=== PATIENT | female | born 1950 | race Caucasian/White ===

== ENCOUNTER 2017-10-30 10:21 | Emergency (ER) | payer MEDICARE ==
[~2017-10-30] VITALS: Ht 167.6 cm; Wt 112.0 kg
[~2017-10-30 10:21] MED LIST: CRESTOR5 MG PO; METFORMIN1000 MG PO; OXYCONTIN40 MG PO; SYNTHROID50 MCG PO
[2017-10-30] MEDS ORDERED: PERCOCET 5/325M1 TAB PO ×2 (11:08→11:10)
[2017-10-30] MEDS ORDERED: NARCAN4 MG/0.1 M (11:08)
[2017-10-30] MEDS ORDERED: XANAX0.25 MG PO (11:10)
[2017-10-30 11:25] VITALS: BP 175/80
== END 2017-10-30 11:25 | disposition home or self-care (01) ==
LOC: ED 10:21
DX: G89.29 Other chronic pain (principal); M54.5 Low back pain; M54.6 Pain in thoracic spine; M54.2 Cervicalgia; I10 Essential (primary) hypertension; E11.9 Type 2 diabetes mellitus without complications; M79.7 Fibromyalgia; M48.00 Spinal stenosis, site unspecified

== ENCOUNTER 2018-06-11 17:05 | Emergency (ER) | payer MEDICARE ==
[~2018-06-11] VITALS: Ht 167.6 cm; Wt 100.0 kg
[~2018-06-11 17:05] MED LIST changes: +ALPRAZOLAM0.5 M2 PO; +BUT/APAP/CAF PO; +CARVEDILOL6.25 MG PO; +CRESTOR10 MG PO; +ESCITALOPRAM OX20 MG PO; +FUROSEMIDE40 MG PO; +GABAPENTIN300 M2 PO; +LASIX 40 MG TAB40 MG PO; +LEVOTHYROXIN50 MC1 PO; +METFORMIN500 MG PO; +NARCAN4 MG/0.1 M; +OXYCODONE HCL E PO; +OXYCODONE HCL E40 MG PO; +OXYCODONE PO; +PERCOCET 5/325M1 TAB PO; +TIZANIDINE HCL2 M1 PO; +WARFARIN7.5 MG PO; +XANAX0.25 MG PO; +XANAX0.5 MG PO; +ZOLPIDEM TARTRA10 MG PO; +ZOLPIDEM10 MG PO
[2018-06-11] MEDS ORDERED: HYDROCO/APAP1 TA9 PO (17:49)
[2018-06-11] MEDS ORDERED: HYDROCO/APAP1 T13 PO (17:52)
[2018-06-11 18:41] VITALS: BP 157/65
== END 2018-06-11 18:41 | disposition home or self-care (01) ==
LOC: ED 17:05
DX: G89.18 Other acute postprocedural pain (principal); M54.5 Low back pain; M19.90 Unspecified osteoarthritis, unspecified site; I10 Essential (primary) hypertension; E11.9 Type 2 diabetes mellitus without complications; M79.7 Fibromyalgia; F41.9 Anxiety disorder, unspecified; F32.9 Major depressive disorder, single episode, unspecified; E03.9 Hypothyroidism, unspecified; Z86.718 Personal history of other venous thrombosis and embolism; Z95.5 Presence of coronary angioplasty implant and graft

== ENCOUNTER 2018-06-14 22:53 | Observation (INO) | payer MEDICARE ==
[~2018-06-14] VITALS: Ht 167.6 cm; Wt 93.0 kg
[~2018-06-14 22:53] MED LIST changes: +HYDROCO/APAP1 T13 PO; +HYDROCO/APAP1 TA9 PO
--- NOTE | 2018-06-14 23:00 | NUR ---
PT HERE FOR FALLING OUT OF BED. PT IS UNKEPT AND STILL HAS [facility] ON FROM [facility].
[2018-06-14 23:51] LABS: IMMATURE GRANULOCYTES 0.7 % (0.0-5.0); MEAN CELL VOLUME 90.5 fL CALC (80.0-100.0); MEAN CORPUSCULAR HGB 28.1 pG CALC (26.0-32.0); NEUT# 6.71 thou/uL (2.00-7.15); RED BLOOD COUNT 4.74 mill/uL (4.20-5.60); RED CELL DISTRI WIDTH 14.9 % (11.5-15.5)
[2018-06-14 23:52] LABS: HEMATOCRIT 42.9 % (37.0-47.0); HEMOGLOBIN 13.3 g/dl (12.0-16.0)
[2018-06-15 00:01] LABS: BILIRUBIN, TOTAL 0.8 mg/dL (0.0-1.4); CREATININE 1.2 mg/dL (0.5-1.0); POTASSIUM 3.3 mmol/l (3.5-5.1)
[2018-06-15 00:03] LABS: TOTAL PROTEIN 7.5 g/dL (6.3-8.2)
--- NOTE | 2018-06-15 00:23 | NUR ---
PT BACK FROM XRAY, EKG DONE
--- NOTE | 2018-06-15 01:20 | NUR ---
PT MEDICATED FOR PAIN AND PT AWARE SHE IS GOING TO BE ADMITTED. PT ASKED FOR SLEEPING PILL. INFORMED PT SHE ALREADY TOOK HERS. SHE STATED "THAT WAS A WHILE AGO IT WONT DO ME ANY GOOD NOW."
--- NOTE | 2018-06-15 01:45 | NUR ---
CALLED FLOOR TO GIVE REPORT, NURSE WILL CALL BACK
--- NOTE | 2018-06-15 03:00 | NUR ---
Admission Note Report Given to: ERICA RAMIREZ Transported by: Wheelchair X Stretcher Transported with: X Nurse Transporter X Patent IV O2 Internal Medicine Physician Assistant PT TRANSPORTED TO FLOOR BY [facility] AND RESERVOIR KEEPER.
--- NOTE | 2018-06-15 03:10 | NUR ---
ARRIVES BY STRETCHER FROM ER WITH TRANSPORT FROM [facility]. PT. STATES SHE IS UNABLE TO AMBULATE FROM STRETCHER TO ICU BED. PT. WAS ASKED IF SHE AMBULATES AT HOME. PT. STATES SHE FELL. THIS RN TOLD PATIENT IT WAS REPORTED THAT SHE ROLLED OUT OF BED. PT. WAS ABLE TO SCOOT HERSELF OVER IN BED AFTER IT WAS FOUND THERE WERE NO SHEETS UNDERNEATH HER. C/O SEVERE PAIN ASKING FOR PAIN MEDICATION ON ARRIVAL. PT. FOUND WITH [facility] AND ADMISSION WRISTBAND FROM 05/31/18. CONTINUES TO MOAN BUT APPEARS IN LITTLE DISTRESS.
[2018-06-15 03:15] VITALS: BP 183/95
--- NOTE | 2018-06-15 03:15 | NUR ---
PT. ASKING FOR PAIN MEDICATION AND A SLEEPING PILL. STATES SHE DID TAKE HER SLEEPING PILL ALREADY LAST NIGHT BUT HASN'T BEEN ABLE TO SLEEP SINCE ROLLING OUT OF BED. NO NOTABLE SWELLING OR HEMATOMA NOTED TO RT. SIDE OF HEAD WHERE PT. STATES HE HIT HER HEAD.
--- NOTE | 2018-06-15 03:30 | NUR ---
PT. REMAINS AWAKE, ALERT, ORIENTED X 3. RESPS EVEN AND UNLABORED. VSS. PT. REQUESTING PAIN MEDICATION. PT. AGAIN EXPLAINED THAT WITH HER HEAD INJURY, MIND ALTERING MEDICATION SHOULD NOT BE GIVEN TO INTERFERE WITH NEURO STATUS CHECKS. PT. REQUESTING THE PHYSICIAN BE CALLED FOR PAIN MEDICATION. AGAIN EXPLAINED THE NEED FOR NEURO STATUS CHECKS SHE HAS AN ADMITTING DIAGNOSIS OF CLOSED HEAD INJURY.
[2018-06-15 04:00] VITALS: BP 135/71
--- NOTE | 2018-06-15 04:09 | NUR ---
PT. PROVIDED WITH TURKEY SANDWICH PER HER REQUEST. PT. STATES "DO YOU HAVE MY ASPIRIN"? THIS RN INFORMED THE PATIENT THAT I WAS WAITING FOR PHARMACY TO PROFILE THE MEDICATION. PT. THEN IN A DEROGATORY TONE ASKED "WELL DID YOU HAVE TO WAIT FOR THE PHARMACY TO PUT THE SANDWICH THROUGH TOO"? PT. WAS APPRISED THERE ARE OTHER PATIENTS THAT ALSO REQUIRE NURSING CARE IN THE ICU. PT. THEN ASKED "DID YOU PUT ANY MAYONAISE ON IT"? THIS RN INFORMED PT. THAT THERE WAS A MAYONAISE PACKET WITH THE SANDWICH AND SHE COULD APPLY LIBERALLY OR LIMITED SHE WOULD LIKE. PT. WAS TOLD THERE WAS ALSO MUSTARD IN THE PACKET IF SHE SHOULD SO CHOOSE. PT. REPLIED "MUSTARD IS ONLY FOR HOTDOGS".
--- NOTE | 2018-06-15 04:43 | NUR ---
PT. CONTINUES TO MOAN AND COMPLAIN ABOUT LOWER BACK PAIN. PT. STATES "IT FEELS LIKE YOU GUYS HAVE BEAT ME UP". THIS RN INFORMED THE PATIENT THAT NOTHING THAT WE HAVE DONE SHOULD HAVE DONE HERE WOULD HAVE EXACERBATED HER CHRONIC BACK PAIN MORE THAN ROLLING OUT OF BED AND HITTING THE FLOOR WOULD HAVE. REMAINS NEUROLOGICALLY INTACT.
--- NOTE | 2018-06-15 06:10 | NUR ---
PT. RESTING IN BED WITH EYES CLOSED AND SNORING RESPIRATIONS. VOICES NO COMPLAINTS OR NEEDS AT THIS TIME. WILL CONTINUE TO MONITOR.
--- NOTE | 2018-06-15 06:55 | NUR ---
REPORT RECVD FROM ERICA RAMIREZ AT START OF SHIFT
--- NOTE | 2018-06-15 07:53 | NUR ---
PT APPEARS TO BE SLEEPING. NO S/S OF DISTRESS AT THIS TIME. EYES CLOSED, RESTING PEACEFULLY. CALLBELL W/IN REACH. WILL HOLD BREAKFAST UNTIL PT WAKES UP.
[2018-06-15 08:00] VITALS: BP 118/45
--- NOTE | 2018-06-15 09:14 | NUR ---
ASHLEY, HOME HEALTH NURSE, CALLED FOR STATUS UPDATE. PROVIDED BACKGROUND INFO ON PT. SHE WILL CALL DR PRITCHARD TO INFORM HIM OF PTS ADMISSION TO [facility].
--- NOTE | 2018-06-15 09:47 | NUR ---
PT REMAINS SLEEPING; EYES CLOSED, RESTING PEACEFULLY. NO S/S OF DISTRESS. CALLBELL W/IN REACH. WILL CONTINUE TO MONITOR.
--- NOTE | 2018-06-15 10:09 | NUR ---
LAB @BEDSIDE FOR DRAW.
--- NOTE | 2018-06-15 10:12 | NUR ---
RT @BEDSIDE FOR EKG
[2018-06-15 10:19] LABS: HEMATOCRIT 40.1 % (37.0-47.0); HEMOGLOBIN 12.6 g/dl (12.0-16.0); IMMATURE GRANULOCYTES 0.5 % (0.0-5.0); MEAN CELL VOLUME 89.3 fL CALC (80.0-100.0); MEAN CORPUSCULAR HGB 28.1 pG CALC (26.0-32.0); MEAN CORPUSCULAR HGB CONC 31.4 g/L CALC (32.0-36.0); NEUT# 5.4 thou/uL (2.00-7.15); RED BLOOD COUNT 4.49 mill/uL (4.20-5.60)
--- NOTE | 2018-06-15 10:32 | NUR ---
CALLED TO ROOM. PT REQUEST TO SPEAK WITH PAIN MANANGMENT. PT INFORMED WE DONT HAVE PAIN MANAGMENT FOR ADMITTED PTS BUT ADMITTING DR ON UNIT, WILL SEE HER SOON.
[2018-06-15 10:41] LABS: CREATININE 1.2 mg/dL (0.5-1.0)
--- NOTE | 2018-06-15 11:00 | NUR ---
PT ON CALLBELL ASKING FOR PAIN MEDICINE.
--- NOTE | 2018-06-15 11:08 | NUR ---
PT ON CALLBELL ASKING FOR PAIN MEDICATION AGAIN. ASKED PT FOR PATIENCE SINCE THERE ARE ALOT OF PTS IN ICU AND ONLY 2 STAFF. WHEN ASKED FOR A URINE SAMPLE, PT STATES SHE CANT PEE STANDING UP. WHEN I TOLD HER SHE COULD SIT DOWN TO URINATE FOR A SAMPLE, PT STARTED WIMPERING BC "IT HURTS".
--- NOTE | 2018-06-15 11:20 | NUR ---
PT MEDICATED FOR PAIN IN HER BUTT FROM "LAYING ON IT TOO MUCH". PT STATES SHE CAN'T ROLL OR TURN HERSELF BC SHE'S IN TOO MUCH PAIN BUT WAS REACHING OVER TO OTHER SIDE OF BED FOR CALLBELL.
--- NOTE | 2018-06-15 11:40 | NUR ---
DR HAMILTON @BEDSIDE, ASSESSING PT. PT ABLE TO ROLL TO SIDE TO SHOW MD HER BACK & BUTTOCKS. NO REDNESS OR ANY ABNORMALITY TO BUTTOCKS. HEALING WOUND WITH MARY BETH TO MIDLINE, LOWER BACK. PT HAS F/UP APPT WITH DR PRITCHARD FOR STAPLE REMOVAL ON 06/17. PT ASKING FOR MORE PAIN MEDICINE.
--- NOTE | 2018-06-15 11:53 | NUR ---
UPDATED HOME HEALTH ON PTS STATUS. CALLED DR PRITCHARD'S OFFICE, HE STEPPED OUT BUT WILL CALL DR HAMILTON BACK IN ABOUT 20 MINS.
--- NOTE | 2018-06-15 11:57 | NUR ---
PT YELLING FROM ROOM "I NEED PAIN MEDICINE", "HELP, VICKIE DROPPED MY CALL BUTTON", "ID LIKE TO TALK TO THE DOCTOR AGAIN".
[2018-06-15 12:00] VITALS: BP 139/66
--- NOTE | 2018-06-15 12:03 | NUR ---
DR HAMILTON, ASKING CASE MANAGEMENT TO INITIAL TRANSFER PT TO [facility].
--- NOTE | 2018-06-15 12:22 | NUR ---
PT SITTING UP IN BED, EATING LUNCH. PTS SPEECH SEEMS SLURRED, DR HAMILTON AWARE. PT ABLE TO READJUST HERSELF IN BED.
--- NOTE | 2018-06-15 12:46 | NUR ---
PT CONTINUES TO FREQUENTLY YELL OUT TO STAFF & USE CALLBELL.
--- NOTE | 2018-06-15 13:24 | NUR ---
WALKED INTO ROOM TO MEDICATE PT, FOUND PT SLEEPING.
--- NOTE | 2018-06-15 13:32 | NUR ---
PT FREQUENTLY ON CALLBELL DURING ANOTHER PTS CODE. WAS EXPLAINED TO PT MULTIPLE TIMES THAT WE HAVE A CRITICAL PT ON THE FLOOR. PTS REPONSE WAS "I DONT UNDERSTAND THAT, JUST GIVE ME MY DAMN MEDICINE!".
--- NOTE | 2018-06-15 13:48 | NUR ---
PT APPEARS SLEEPY/GROUGY, SPEECH SLURRED/GARBLED. PT ABLE TO KAY & OVERCOME GRAVITY. OSTOMY CARE NURSE MODERATE BILATERALLY. EYES PERRLA @3. PT A&Ox3. NO FACIAL DROOP. VSS. HR 76, BP 127/68, 96% O2, RR 16
[2018-06-15 14:00] VITALS: BP 127/68
--- NOTE | 2018-06-15 14:10 | NUR ---
PT REFUSED IV POTASSIUM. STATES "IT NOEL TOO BAD". K+ STOPPED.
--- NOTE | 2018-06-15 14:28 | NUR ---
PT CONTINUES TO BE ON CALLBELL & YELL OUT FOR STAFF EVERY 5 MINS. PT AWARE OF TRANSFER.
--- NOTE | 2018-06-15 14:45 | NUR ---
ASHLEY, HOME HEALTH, NOTIFIED OF PTS TRANSFER TO [facility].
--- NOTE | 2018-06-15 14:54 | NUR ---
PT CONTINUES TO BE ON CALLBELL & CALLING OUT TO STAFF. PT C/O PAIN TO IV SITE AREA. REFUSES TO PLACE ICE PACK ON AREA. NO SWELLING, NO REDNESS, NO HEAT. PT DOES NOT WANT IV PULLED SO SHE CAN STILL GET PAIN MEDICATIONS. REFUSES NEW IV START. REQUEST THE DOCTOR COME TO THE ROOM SO HE CAN SEE HOW MUCH PAIN SHE IS IN.
--- NOTE | 2018-06-15 14:58 | NUR ---
TRANSPORTATION TO NEW FACILITY ETA 30MINS.
--- NOTE | 2018-06-15 15:00 | NUR ---
LILLIE, CASE MANAGMENT, @BEDSIDE TO DISCUSS TRANSFER.
--- NOTE | 2018-06-15 15:51 | NUR ---
PT OUT THE DOOR WITH [facility] IN STABLE CONDITION.
--- NOTE | 2018-06-15 15:53 | NUR ---
PT STATES SHE WAS UNABLE TO GIVE A URINE SAMPLE DURING ADMISSION.
--- NOTE | 2018-06-15 16:07 | NUR ---
REPORT CALLED TO MARISOL, CHARGE NURSE, AT [phone].
== END 2018-06-15 15:51 ==
LOC: ED 22:53 → ED-I 06-15 01:10 → ED 06-15 01:17 → ICU 06-15 01:18
PROVIDERS: Emergency Medicine; Internal Medicine Nephrology; ADMIT Internal Medicine; ATTEND Internal Medicine
DX: M54.5 Low back pain (principal); R93.7 Abnormal findings on diagnostic imaging of other parts of musculoskeletal system; M48.061 Spinal stenosis, lumbar region without neurogenic claudication; S00.03XA Contusion of scalp, initial encounter; I10 Essential (primary) hypertension; I25.10 Atherosclerotic heart disease of native coronary artery without angina pectoris; E11.9 Type 2 diabetes mellitus without complications; M79.7 Fibromyalgia; W06.XXXA Fall from bed, initial encounter; Y92.003 Bedroom of unspecified non-institutional (private) residence as the place of occurrence of the external cause; Z95.5 Presence of coronary angioplasty implant and graft; Z98.890 Other specified postprocedural states

== ENCOUNTER 2018-09-12 20:43 | Observation (INO) | payer MEDICARE ==
[~2018-09-12] VITALS: Ht 167.6 cm; Wt 91.3 kg
--- NOTE | 2018-09-12 21:42 | NUR ---
BLOOD DRAWN VIA EMS SITE.
[2018-09-12 21:54] LABS: HEMATOCRIT 41.7 % (37.0-47.0); HEMOGLOBIN 12.9 g/dl (12.0-16.0); IMMATURE GRANULOCYTES 0.3 % (0.0-5.0); MEAN CELL VOLUME 87.6 fL CALC (80.0-100.0); MEAN CORPUSCULAR HGB 27.1 pG CALC (26.0-32.0); MEAN CORPUSCULAR HGB CONC 30.9 g/L CALC (32.0-36.0); NEUT# 3.55 thou/uL (2.00-7.15); RED BLOOD COUNT 4.76 mill/uL (4.20-5.60)
[2018-09-12 22:29] LABS: ACT PARTIAL THROMBO TIME 60.5 SECONDS (20.0-32.5); INTERNATIONAL NORMALIZED RATIO 8.1 RATIO (0.7-1.3); PROTHROMBIN TIME 82.8 SECONDS (9.0-12.5)
--- NOTE | 2018-09-12 22:30 | NUR ---
PT 82.8/INR 8.1. NOTIFIED
[2018-09-12 22:36] LABS: ALBUMIN 3.7 g/dL (3.2-5.0); ALKALINE PHOSPHATASE 101 u/l (38-126); ANION GAP 10 (6-22 (CALC)); BILIRUBIN, TOTAL 0.6 mg/dL (0.0-1.4); BUN 18 mg/dL (8-23); BUN/CREATININE RATIO 20 (12-20 (CALC)); CARBON DIOXIDE 28 mmol/l (22-30); CHLORIDE 105 mmol/l (95-108); CREATININE 0.9 mg/dL (0.5-1.0); ETHYL ALCOHOL 0 mg/dl (0-30); GFR > 60 ML/MIN (>=60 (CALC)); GFR FOR AFR.AMER. > 60 ML/MIN (>=60 (CALC)); POTASSIUM 3.8 mmol/l (3.5-5.1); SGOT/AST 18 u/l (9-36); SODIUM 139 mmol/l (137-146); TOTAL PROTEIN 6.8 g/dL (6.3-8.2)
--- NOTE | 2018-09-12 23:11 | NUR ---
PT VOIDED WITH MINI CATH TO OBTAIN URINE SAMPLE
--- NOTE | 2018-09-12 23:11 | NUR ---
PT VERY GROGGY AND UNABLE TO VOID. FALLS ASLEEP MID SENTENCE.
[2018-09-12 23:41] LABS: URINE BILIRUBIN - DIPSTICK NEGATIVE (NEGATIVE); URINE BLOOD DIPSTICK NEGATIVE (NEGATIVE); URINE COLOR YELLOW; URINE GLUCOSE - DIPSTICK NEGATIVE (NEGATIVE); URINE KETONE TRACE mg/dL (NEGATIVE); URINE LEUK ESTERASE NEGATIVE (NEGATIVE); URINE NITRITE - DIPSTICK NEGATIVE (Negative); URINE PROTEIN - DIPSTICK NEGATIVE (NEG-TRACE); URINE UROBILINOGEN - DIPSTICK 0.2 E.U./dL (0.2)
[2018-09-12 23:46] LABS: COCAINE NEGATIVE (NEGATIVE); METHADONE NEGATIVE (NEGATIVE); TETRAHYDROCANNABIONOL NEGATIVE (NEGATIVE)
[2018-09-12 23:47] LABS: BARBITURATES NEGATIVE (NEGATIVE); OXCYCODONE POSITIVE (NEGATIVE); TRICYLIC ANTIDEPRESSANTS NEGATIVE (NEGATIVE)
[2018-09-13] VITALS (17 sets, daily range): BP systolic 110–184; BP diastolic 45–79
--- NOTE | 2018-09-13 01:03 | NUR ---
REPORT CALLED TO VINCE/NURSE ICU
--- NOTE | 2018-09-13 01:10 | NUR ---
TO FLOOR VIA STRETCHER. PT'S WALKER AND 2 PT BAGS. NIGHT GOWN/WALLET/PHONE/AND BAG OF MED.
--- NOTE | 2018-09-13 01:20 | NUR ---
PT ARRIVED WITH EMS IV SITE.
--- NOTE | 2018-09-13 01:20 | NUR ---
PT ARRIVED TO THE UNIT VIA STRETCHER ACCOMAPNIED BY STAFF, AND HER BELONGINGS. IV SITE IS FREE FROM REDNESS OR EDEMA.
--- NOTE | 2018-09-13 01:40 | NUR ---
ASSESSMENT WAS COMPLETED: IV SITE CHANGED BY RN ON THE UNIT WITH 1 ATTEMPT. #22 IN RFA. PT TOLERATED WELL. BREATH SOUNDS ARE CLEAR, BILATERALLY, NO C/O SOB, ONLY C/O PAIN IN HER LOWER BACK. HR IS REG,PULSES ARE STRONG X4. ABD IS SOFT WITH ACTIVE BS. PT HAS SOME DISCOLORATION ON HER NECK . SCARRING NOTED ON HER LOWER BACK. SMALL BLISTER ON HER COCCYX. EMS SITE WAS DISCONTINUED. ALL QUESTIONS ANSWERED APPROPIATELY BY PT.CONTINUE TO OSBERVE AND MONITOR.
--- NOTE | 2018-09-13 02:01 | NUR ---
CALLED ER DR. RICHARDS REQUESTING SOMETHING FOR PAIN. EXPLAINED BP AT THIS TIME. NEW MEDS WERE ORDERED. CALLED CARDINAL RE: IV FLUID ORDER . ORDER WAS FIXED IN THE PYXIS TO BE ABLE TO OBTAIN.
--- NOTE | 2018-09-13 03:59 | NUR ---
RN COSIGN ADMISSION ASSESSMENT PART A & B COMPLETED.
--- NOTE | 2018-09-13 04:50 | NUR ---
LAB CAME TO DRAW AM LABS
[2018-09-13 05:00] LABS: HEMOGLOBIN 12.3 g/dl (12.0-16.0); IMMATURE GRANULOCYTES 0.3 % (0.0-5.0); MEAN CELL VOLUME 88.3 fL CALC (80.0-100.0); MEAN CORPUSCULAR HGB 27.2 pG CALC (26.0-32.0); MEAN CORPUSCULAR HGB CONC 30.8 g/L CALC (32.0-36.0); NEUT# 3.37 thou/uL (2.00-7.15); RED BLOOD COUNT 4.53 mill/uL (4.20-5.60)
[2018-09-13 05:07] LABS: ANION GAP 11 (6-22 (CALC)); BUN 18 mg/dL (8-23); BUN/CREATININE RATIO 24 (12-20 (CALC)); CARBON DIOXIDE 24 mmol/l (22-30); CHLORIDE 109 mmol/l (95-108); CREATININE 0.8 mg/dL (0.5-1.0); GFR > 60 ML/MIN (>=60 (CALC)); GFR FOR AFR.AMER. > 60 ML/MIN (>=60 (CALC)); POTASSIUM 3.8 mmol/l (3.5-5.1); SODIUM 140 mmol/l (137-146)
[2018-09-13 05:31] LABS: PROTHROMBIN TIME 92.3 SECONDS (9.0-12.5)
--- NOTE | 2018-09-13 05:35 | NUR ---
PLACED A CALL TO DUE TO HIGH INR OF 9.0. NEW ORDERS OBTAINED.
[2018-09-13] MEDS ORDERED: ALPRAZOLAM0.5 MG PO (05:40)
[2018-09-13] MEDS ORDERED: ZOLPIDEM10 MG PO (05:41)
[2018-09-13] MEDS ORDERED: OXYCONTIN40 MG PO (05:42)
[2018-09-13] MEDS ORDERED: WARFARIN7.5 MG PO (05:43)
[2018-09-13] MEDS ORDERED: ESCITALOPRAM OX10 MG PO (05:43)
[2018-09-13] MEDS ORDERED: LEVOTHYROXIN50 MCG PO (05:45)
[2018-09-13] MEDS ORDERED: FUROSEMIDE40 MG PO (05:45)
[2018-09-13] MEDS ORDERED: GABAPENTIN100 MG PO (05:46)
[2018-09-13] MEDS ORDERED: CARVEDILOL6.25 MG PO (05:47)
[2018-09-13] MEDS ORDERED: FIORICET PO (05:48)
[2018-09-13] MEDS ORDERED: TIZANIDINE4 MG PO (05:49)
[2018-09-13] MEDS ORDERED: ROSUVASTATIN CA10 MG PO (05:50)
[2018-09-13] MEDS ORDERED: METFORMIN500 MG PO (05:51)
--- NOTE | 2018-09-13 07:00 | NUR ---
REPORT RECEIVED FROM SHAINA CLARKE;PT APPEARS TO BE SLEEPING IN SUPINE POSITION;RESPIRATIONS EVEN AND UNLABORED ON RA;NO S/S OF DISTRESS NOTED;IV FLUIDS INFUSING TO RIGHT FOREARM WITH EASE;ALL SAFETY PRECAUTIONS IN PLACE WITH BED IN THE LOWEST POSITION AND CALL LIGHT IN REACH;WILL CONTINUE TO MONITOR
--- NOTE | 2018-09-13 07:30 | NUR ---
PT RESTING IN SUPINE POSITION,AWAKES EASILY TO VERBAL STIMULI;ALERT AND ORIENTED X3,DROWSY;VS OBTAINED AND ASSESSMENT COMPLETED;INTRODUCED SELF TO PT AND POC DISCUSSED;PT REPORTS HEADACHE PAIN RATING 2/10 ON THE PAIN SCALE, PT EDUCATED ON LAST ADMINISTRATION OF PAIN MEDICATION AND VERBALIZES UNDERSTANDING;RESPIRATIONS SHALLOW ON RA,CLEAR LUNG SOUNDS;ABDOMEN SOFT ON PALPATION AND ACTIVE IN ALL 4 QUADRANTS;STRONG PEDAL PULSES;GENERALIZED BRUISING NOTED THROUGHOUT,SKIN OTHERWISE INTACT;#22G TO RIGHT FOREARM INFUSING NS @ 125ML/HR,SITE APPEARS HEALTHY;ACCUCHECK 86;CARDIAC MONITORING IN PLACE;PT DENIES ANY ADDITIONAL NEEDS AT THIS TIME AND IS ENCOURAGED TO CALL FOR ASSISTANCE IF NEEDED;FALL PRECAUTIONS IN PLACE WITH BED IN THE LOWEST POSITION AND CALL LIGHT IN REACH;WILL CONTINUE TO MONITOR
--- NOTE | 2018-09-13 07:48 | NUR ---
PT CURRENT BP 176/76 HR 73; NOTIFIED AT THIS TIME OF ELEVATED BP;NO NEW ORDERS RECEIVED AT THIS TIME;WILL CONTINUE TO MONITOR
--- NOTE | 2018-09-13 08:20 | NUR ---
CONSENT OBTAINED FOR BLOOD PRODUCTS. PT TO RECEIVED 2 UNITS OF FRESH FROZEN PLASMA;PT EDUCATED ON ALL SIGNS AND SYMPTOMS OF A TRANSFUSION REACTIONS AND VERBALIZES UNDERSTANDING;WILL CONTINUE TO MONITOR
--- NOTE | 2018-09-13 09:35 | NUR ---
ITEMS SENT TO SAFE IN BUSSINESS OFFICE AT THIS TIME.$191.00, CREDIT CARDS AND WALLET ALL COUNTED AND SIGNED WITH PATIENT.
--- NOTE | 2018-09-13 09:54 | NUR ---
FFP verified at bedside as per protocol; pt has been explained s/sx of acute reaction and to notify staff immed of such; account underwriter remains at bedside to monitor pt
--- NOTE | 2018-09-13 09:55 | NUR ---
PT RESTING IN BED;FIRST UNIT OF FFP STARTED AT THIS TIME WITH VERIFICATION FROM MIRANDARN;ALL S/S OF A TRANSFUSION REACTION EDUCATED AND PT VERBALIZES UNDERSTANDING,ALL QUESTIONS ANSWERED;WRITTER TO REMAIN AT BEDSIDE FOR INITIAL 15 MINS PER [facility] PROTOCAL;WILL CONTINUE TO MONITOR
--- NOTE | 2018-09-13 10:28 | NUR ---
AT BEDSIDE DISCUSSING POC WITH PATIENT.NO NEW ORDERS AT THIS TIME.
--- NOTE | 2018-09-13 11:05 | NUR ---
PT RESTING IN SEMI FOWLERS POSITION,DROWSY;RESPIRATIONS EVEN AND UNLABORED ON RA;1ST UNIT OF FFP CONTINUES TO INFUSE WITH EASE TO RFA;ACCUCHECK OBTAINED RESULTING IN 128,NO COVERAGE NEEDED AT THIS;PT REMAINS SR ON CARDIAC MONITORING;VS OBTAINED;ALL SAFETY PRECAUTIONS REINFORCED WITH CALL LIGHT IN REACH;WILL CONTINUE TO MONITOR
--- NOTE | 2018-09-13 11:52 | NUR ---
PT RESTING IN BED EATING LUNCH;FIRST UNIT OF FFP COMPLETED AT THIS TIME;VS OBTAINED AND WNL;PT DENIES ANY CURRENT NEEDS;RESPIRATIONS EVEN AND UNLABORED ON RA;PT RE-EDUCATED ON 2ND UNIT OF FFP ORDERED AND VERBALIZES UNDERSTANDING;WILL CONTINUE TO MONITOR
--- NOTE | 2018-09-13 12:10 | NUR ---
2ND UNIT OF FFP STARTED AT THIS TIME WITH VERIFICATION FROM MIRANDARN;ALL S/S OF A TRANSFUSION REACTION DISCUSSED AND PT VERBALIZES UNDERSTANDING;PT DENIES ANY ADDITIONAL NEEDS AND IS ENCOURAGED TO EXPRESS NEEDS AND CONCERNS;WRITTER TO REMAIN AT BEDSIDE FOR INITIAL 15 MINS PER [facility] PROTOCAL;WILL CONTINUE TO MONITOR
--- NOTE | 2018-09-13 14:19 | NUR ---
2ND UNIT OF FFP COMPLETED PER ORDER;VS OBTAINED AND REMAIN STABLE;RESPIRATIONS EVEN AND UNLABORED ON RA;PT REMAINS SR ON CARDIAC MONITORING;IV SITE TO RFA REMAINS PATENT;FRESH WATER PROVIDED;PT DENIES ANY ADDITIONAL NEEDS AND IS ENCOURAGED TO CALL FOR ASSISTANCE IF NEEDED;CALL LIGHT IN REACH;WILL CONTINUE TO MONITOR
--- NOTE | 2018-09-13 16:50 | NUR ---
PT APPEARS TO BE SLEEPING IN SEMI FOWLERS POSITION;RESPIRATIONS EVEN AND UNLABORED ON RA;IV FLUIDS CONTINUE TO INFUSE TO RFA @ 125ML/HR,SITE APPEARS HEALTHY;NO S/S OF DISTRESS NOTED;WILL CONTINUE TO MONITOR
--- NOTE | 2018-09-13 18:23 | NUR ---
PT HAD MODERATE LOOSE/BROWN BM;BALDEMAR CARE PROVIDED AND NEW GOWN APPLIED;PT RE-POSITIONED INTO BED;WILL CONTINUE TO MONITOR
--- NOTE | 2018-09-13 19:00 | NUR ---
BEDSIDE REPORT RECEIVED FROM SHAINA RAMOS. PT RESTING IN BED HIGH FOWLERS; ALERT AND OREINTED X 3. DENIES PAIN. RESPIRATIONS EVEN AND UNLABORED ON ROOM AIR. PLAN OF CARE REVIEWED. PT ENCOURAGED TO VERBALIZE CONCERNS. STATES UNDERSTANDING AND REQUESTS A SANDWHICH. SAFETY MEASURES IN PLACE. CALL LIGHT WITHIN REACH.
--- NOTE | 2018-09-13 19:15 | NUR ---
ASSESSMENT COMPLETE. LUNGS CLEAR. SANDWHICH PROVIDED. VS STABLE.
--- NOTE | 2018-09-13 21:22 | NUR ---
HS MEDICATIONS ADMINISTERED INCLUDING XANAX AND ROXICODONE; PT C/O 8/10 PAIN TO BUTT; RESPOSITONED AND PT ENCOURAGED TO REPOSITION SELF TO HELP WITH COMFORT. DECLINES NEED TO USE THE BATHROOM AT THIS TIME. CALL LIGHT SYSTEM REVIEWED AND WITHIN REACH.
--- NOTE | 2018-09-14 00:08 | NUR ---
PT ASLEEP WITH NO SIGNS OF DISTRESS. RESPIRATIONS EVEN AND UNLABORED ON ROOM AIR. IV FLUIDS INFUSING WITHOUT DIFFICULTY; IV SITE APPEARS HEALTHY. PT ONE PERSON ASSIST TO BSC. SAFETY MEASURES IN PLACE. CALL LIGHT WITHIN REACH.
[2018-09-14 04:00] VITALS: BP 152/74
--- NOTE | 2018-09-14 04:18 | NUR ---
PT INCONTINENT OF MODERATE LOOSE BOWEL MOVEMENT; NO VOID THROUGHOUT THE NIGHT. ENCOURAGEMENT NEEDED FOR PT TO GO TO BSC; ASSISTED BATH GIVEN, LINENS CHANGED, AND TEETH BRUSHED. PT VOIDED ONLY 100ML IN BSC WITH SMALL AMOUNT OF LIQUID STOOL. PVR 367ML WITH BLADDER SCANNER. PT REPORTS THAT SHE DOES NOT FEEL LIKE SHE NEEDS TO PEE. FLUIDS CONTINUE TO 125ML. C/O BUTT PAIN AND REQUESTING PAIN MEDICATION; ENCOURAGED TO REPOSITION TO SIDE AND PT STATES, "THAT DOESN'T HELP IT JUST STARTS TO HURT ON MY SIDE." WILL MEDICATION PER SCHEDULE.
--- NOTE | 2018-09-14 04:51 | NUR ---
MEDICATION SCHEDULE EXPLAINED TO PT; SHE REQUESTED A XANAX; PROVIDED.
--- NOTE | 2018-09-14 06:15 | NUR ---
PT REQUESTING SNACK; ACCU CHECK 105 AND CRACKERS GIVEN.
--- NOTE | 2018-09-14 07:00 | NUR ---
Received pt in mid-fowlers. Eyes closed. Resp easy. SR on tele. No signs of distress. Call light within reach.
--- NOTE | 2018-09-14 07:30 | NUR ---
Dr Craig called this senior technical writer; requesting INR results; lab noted to be ordered for 0900; lab notified to obtain specimen
[2018-09-14 08:00] VITALS: BP 149/80
[2018-09-14 08:16] LABS: INTERNATIONAL NORMALIZED RATIO 1.2 RATIO (0.7-1.3); PROTHROMBIN TIME 12.3 SECONDS (9.0-12.5)
[2018-09-14 08:35] VITALS: BP 149/80
--- NOTE | 2018-09-14 08:43 | NUR ---
Pt tolerated 100% of breakfast. Pt requesting pain medication, explained to patient is a bit to early at this time. Pt voices understanding. Scheduled am meds given including gabapentin. Pt worried about missing her appt with her pain Dr today and not being able to get her scripts for pain meds. Discussed plan of care. Denies any further needs at this time.
--- NOTE | 2018-09-14 08:55 | NUR ---
Pt attempting to get out of chair to bed without assist, incontinent of stool Pt instructed to call for assist. PT voices understanding.
--- NOTE | 2018-09-14 09:15 | NUR ---
Pt assisted back to bed, voided 100ml dark cloudy urine.
--- NOTE | 2018-09-14 09:22 | NUR ---
Pt medicated with PRN pain medicated as ordered. Pt awaken from sleep to medicate. Denies any further needs.
--- NOTE | 2018-09-14 10:59 | NUR ---
Dr Craig in unit, informed of repeat INR results.
--- NOTE | 2018-09-14 11:15 | NUR ---
Dr Craig in to see pt. Discharge orders discussed with patient.
[2018-09-14] MEDS ORDERED: COUMADIN5 MG PO (11:26)
--- NOTE | 2018-09-14 11:56 | NUR ---
D/C INSTRUCTIONS DISCUSSED W/ PT. PT STATES UNDERSTANDING. IV REMOVED CATHETER INTACT. PT AWAITING RIDE AND CLOTHES.
--- NOTE | 2018-09-14 12:14 | NUR ---
Discharge instructions given. Patient verbalizes understanding of same. Discharged in stable condition via Wheelchair to Home with father. All belongings sent with pt.
[2018-09-14] MEDS ORDERED: OXYCONTIN40 MG PO (14:12)
== END 2018-09-14 12:14 ==
LOC: ED 20:43 → ED-I 23:47 → ED 09-13 00:02 → ICU 09-13 00:03
PROVIDERS: Emergency Medicine; ADMIT Internal Medicine Nephrology; ATTEND Internal Medicine Nephrology
PROC: 30233K1 Transfusion of Nonautologous Frozen Plasma into Peripheral Vein, Percutaneous Approach (ICD-10-PCS; principal; 2018-09-13)
PROC: 30233K1 Transfusion of Nonautologous Frozen Plasma into Peripheral Vein, Percutaneous Approach (ICD-10-PCS; 2018-09-13)
DX: R79.1 Abnormal coagulation profile (principal); T45.515A Adverse effect of anticoagulants, initial encounter; S00.03XA Contusion of scalp, initial encounter; I10 Essential (primary) hypertension; E11.9 Type 2 diabetes mellitus without complications; I25.10 Atherosclerotic heart disease of native coronary artery without angina pectoris; E66.01 Morbid (severe) obesity due to excess calories; M19.90 Unspecified osteoarthritis, unspecified site; M48.00 Spinal stenosis, site unspecified; M79.7 Fibromyalgia; E03.9 Hypothyroidism, unspecified; W01.198A Fall on same level from slipping, tripping and stumbling with subsequent striking against other object, initial encounter; Y92.009 Unspecified place in unspecified non-institutional (private) residence as the place of occurrence of the external cause; Z79.4 Long term (current) use of insulin; Z79.01 Long term (current) use of anticoagulants; Z68.32 Body mass index [BMI] 32.0-32.9, adult; Z95.828 Presence of other vascular implants and grafts; Z86.718 Personal history of other venous thrombosis and embolism; Z95.1 Presence of aortocoronary bypass graft; F41.9 Anxiety disorder, unspecified

== ENCOUNTER 2018-09-30 01:00 | Inpatient (IN) | payer MEDICARE ==
[~2018-09-30] VITALS: Ht 167.6 cm; Wt 100.0 kg
[~2018-09-30 01:00] MED LIST changes: +ALPRAZOLAM0.5 MG PO; +COUMADIN5 MG PO; +ESCITALOPRAM OX10 MG PO; +FIORICET PO; +GABAPENTIN100 MG PO; +LEVOTHYROXIN50 MCG PO; +ROSUVASTATIN CA10 MG PO; +TIZANIDINE4 MG PO
--- NOTE | 2018-09-30 01:00 | NUR ---
IMMEDIATELY TO TREATMENT ROOM #12 ON ARRIVAL TO ED.
[2018-09-30 01:49] LABS: HEMATOCRIT 40.1 % (37.0-47.0); HEMOGLOBIN 12.1 g/dl (12.0-16.0); IMMATURE GRANULOCYTES 0.4 % (0.0-5.0); MEAN CELL VOLUME 90.1 fL CALC (80.0-100.0); MEAN CORPUSCULAR HGB 27.2 pG CALC (26.0-32.0); MEAN CORPUSCULAR HGB CONC 30.2 g/L CALC (32.0-36.0); NEUT# 6.69 thou/uL (2.00-7.15); RED BLOOD COUNT 4.45 mill/uL (4.20-5.60); RED CELL DISTRI WIDTH 15.7 % (11.5-15.5)
[2018-09-30 01:57] LABS: BARBITURATES NEGATIVE (NEGATIVE); COCAINE NEGATIVE (NEGATIVE); METHADONE NEGATIVE (NEGATIVE); OXCYCODONE POSITIVE (NEGATIVE); TETRAHYDROCANNABIONOL NEGATIVE (NEGATIVE); TRICYLIC ANTIDEPRESSANTS NEGATIVE (NEGATIVE)
[2018-09-30 02:03] LABS: ALBUMIN 3.8 g/dL (3.2-5.0); ALKALINE PHOSPHATASE 91 u/l (38-126); ANION GAP 15 (6-22 (CALC)); BILIRUBIN, TOTAL 0.8 mg/dL (0.0-1.4); BUN 21 mg/dL (8-23); BUN/CREATININE RATIO 17 (12-20 (CALC)); CARBON DIOXIDE 27 mmol/l (22-30); CHLORIDE 103 mmol/l (95-108); CREATININE 1.3 mg/dL (0.5-1.0); ETHYL ALCOHOL 0 mg/dl (0-30); GFR 40 ML/MIN (>=60 (CALC)); GFR FOR AFR.AMER. 49 ML/MIN (>=60 (CALC)); POTASSIUM 4.2 mmol/l (3.5-5.1); SGOT/AST 15 u/l (9-36); SODIUM 141 mmol/l (137-146); TOTAL PROTEIN 6.9 g/dL (6.3-8.2)
--- NOTE | 2018-09-30 02:09 | NUR ---
DR Richard INFORMED OF [facility].
[2018-09-30 02:12] LABS: URINE BILIRUBIN - DIPSTICK NEGATIVE (NEGATIVE); URINE BLOOD DIPSTICK SMALL (NEGATIVE); URINE COLOR YELLOW; URINE GLUCOSE - DIPSTICK NEGATIVE (NEGATIVE); URINE KETONE 15 mg/dL (NEGATIVE); URINE PH 6.5 (4.5-8.0); URINE PROTEIN - DIPSTICK 30 mg/dL (NEG-TRACE)
[2018-09-30 02:14] LABS: URINE LEUK ESTERASE MODERATE (NEGATIVE); URINE NITRITE - DIPSTICK POSITIVE (Negative)
[2018-09-30 02:17] LABS: URINE BACTERIA MANY hpf; URINE WBC TNTC WBC/hpf (0-5)
--- NOTE | 2018-09-30 02:40 | NUR ---
TAKES PO MED WATER WITHOUT DIFF.A/O TO PERSON AND PLACE,CONFUSED WITH DATE W/P/D SKIN
--- NOTE | 2018-09-30 02:44 | NUR ---
PHONE REPORT TO NURSE LILLIE ON MS2
--- NOTE | 2018-09-30 02:53 | NUR ---
PT TRANSPORTED TO [facility] 260
--- NOTE | 2018-09-30 04:00 | NUR ---
PATIENT ADMITTED FROM ER VIA STRETCHER WITH ER STAFF IN ATTENDANCE. PATIENT IS SLOW, DROWSEY WITH SLOW SPEECH. MAX ASSIST FROM STRETCHER TO BED. ORIENTED TO PERSON AND PLACE. PATIENT WITH MATHUR CATH PATENT AND DRAINING YELLOW URINE. CATH STRAP INTACT TO RIGHT THIGH. PATIENT WITH IV SITE TO LEFT HAND INTACT. IVF NS HUNG AND INFUSING AT 125CC/HR. SITE APPEARS HEALTHY AT THIS TIME. PATIENT IS AFEBRILE AT THIS TIME. O2 VIA NASAL CANNULA IN PLACE. PATIENT STATES THAT SHE LIVES WITH HER SISTER AND THAT SHE HAS CHRONIC PAIN THAT SHE TAKES PAIN MEDS FOR. STATES THAT SHE TAKES OXYCONTIN 40MG BID AND LAST HAD IT YESTERDAY. ALSO STATES THAT SHE HAS BEEN HAVING SOME DEPRESSION AND AXIETY ISSUES RECENTLY REGUARDING HER HEALTH AND LIVING SITUATION WITH HER SISTER. PATIENT ALSO STATES THAT SHE IS CURRENTLY BEING SEEN BY [facility] FOR THERAPY. PATIENT ORIENTED TO ROOM AND SURROUNDINGS. INSTRUCTED ON USE OF NURSE CALL LIGHT SYSTEM, TV REMOTE AND PHONE. SAFETY PRECAUTIONS REVIEWED WITH PATIENT. CALL LIGHT IN REACH. WILL CONT TO MONITOR.
[2018-09-30 05:57] LABS: INTERNATIONAL NORMALIZED RATIO 1.7 RATIO (0.7-1.3); PROTHROMBIN TIME 18.1 SECONDS (9.0-12.5)
--- NOTE | 2018-09-30 07:00 | NUR ---
REPORT RECEIVED FROM ERICA MOREIRA;PT RESTING IN SEMI FOWLERS POSITION;INTRODUCED SELF TO PT AND POC DISCUSSED;RESPIRATIONS EVEN AND UNLABORED ON O2 @ 2L VIA NC;PT DENIES ANY CURRENT PAIN OR DISCOMFORTS;PT ENCOURAGED TO CALL FOR ASSISTANCE IF NEEDED;FALL PRECAUTIONS IN PLACE WITH BED IN THE LOWEST POSITION AND BED ALARM ON FOR PT SAFETY;CALL LIGHT IN REACH;WILL CONTINUE TO MONITOR
[2018-09-30 08:55] VITALS: BP 101/66
--- NOTE | 2018-09-30 08:55 | NUR ---
PT RESTING IN SEMI FOWLERS POSITION, A&O X3 BUT DROWSY;VS OBTAINED AND ASSESSMENT COMPLETED;PT DENIES ANY CURRENT PAIN OR DISCOMFORTS,PAIN SCALE AND REPORTING EDUCATED;RESPIRATIONS EVEN AND UNLABORED ON O2 @ 2L VIA NC;ABDOMEN DISTENDED/SOFT ON PALPATION AND ACTIVE IN ALL 4 QUADANTS, LAST BM UNKNOWN;WEAK PEDAL PULSES WITH +2 EDEMA NOTED TO BLE;SKIN INTACT;#20G TO LEFT HAND INFUSING NS @ 125ML/HR,SITE APPEARS HEALTHY;MATHUR CATHETER PATENT DRAINING CLEAR/YELLOW URINE WITH EASE,LEG STRAP IN PLACE;ACCUCHECK 203;PT DENIES ANY ADDITIONAL NEEDS AND IS ENCOURAGED TO CALL FOR ASSISTANCE IF NEEDED;BED ALARM ON FOR SAFETY;CALL LIGHT IN REACH;WILL CONTINUE TO MONITOR
--- NOTE | 2018-09-30 12:30 | NUR ---
PT RESTING IN BED EATING LUNCH;RESPIRATIONS EVEN AND UNLABORED ON O2 @ 2L VIA NC;PT DENIES ANY CURRENT PAIN OR NEEDS;IV FLUIDS DISCONTINUED AT THIS TIME PER ORDER;ACCUCHECK 135;PT ENCOURAGED TO CALL FOR ASSISTANCE IF NEEDED;FALL PRECAUTIONS REMAIN IN PLACE WITH BED IN THE LOWEST POSITION AND BED ALARM ON FOR SAFETY;CALL LIGHT IN REACH;WILL CONTINUE TO MONITOR
[2018-09-30 12:32] VITALS: BP 143/58
[2018-09-30 14:50] VITALS: BP 133/62
--- NOTE | 2018-09-30 15:30 | NUR ---
PT RESTING IN SEMI FOWLERS POSITION AFTER SHOWER;RESPIRATIONS EVEN AND UNLABORED ON RA;PT DENIES ANY CURRENT NEEDS, ICED TEA PROVIDED PER REQUEST;IV SITE TO LEFT HAND PATENT;MATHUR CATHETER REMOVED AT THIS TIME PER ORDER,PT TOLERATED WELL;ALL SAFETY PRECAUTIONS REINFORCED WITH BED IN THE LOWEST POSITION AND CALL LIGHT IN REACH;WILL CONTINUE TO MONITOR
[2018-09-30 19:15] VITALS: BP 146/56
--- NOTE | 2018-09-30 20:45 | NUR ---
PT RESTING IN BED, NO SIGNS OF DISTRESS NOTED, RESP EVEN AND UNLABORED. PT MEDICATED PER MAR. DISCUSSED POC, PT IN AGREEMENT. DISCUSSED ROCEPHIN, IV SITE INFILTRATED, REMOVED IV CATHETER INTACT. NEW IV SITE PLACED TO LAC AFTER 2 ATTEMPT, INITIATED IV ROCEPHIN, ASSESSMENT COMPLETED AT THIS TIME, BED ALARM FOR SAFETY,CALL LIGHT IN REACH,CONTINUE TO MONITOR.
--- NOTE | 2018-09-30 22:47 | NUR ---
PT SET OFF BED ALARM, ATTEMPTING TO GET UP TO BSC. ASSISTED TO BSC PT VOIDED 100CC, ASSISTED PT BACK TO BED BED ALARM FOR SAFETY. CALL LIGHT IN REACH,CONTINUE TO MONITOR.
--- NOTE | 2018-09-30 23:41 | NUR ---
PT CONTINUES TO GET OUT OF BED, PT IS CONFUSED, ASSISTED BACK IN BED, RESP EVEN AND UNLABORED, NO SIGNS OF DISTRESS NOTED, BED ALARM FOR SAFETY. CALL LIGHT IN REACH,CONTINUE TO MONITOR.
[2018-09-30 23:58] VITALS: BP 151/50
--- NOTE | 2018-10-01 00:02 | NUR ---
PT GETTING OUT OF BED, CONFUSED, REINFORCED SAFETY AND FALL PRECAUTIONS, PT NOT READY DUE TO CONFUSION. BED ALARM FOR SAFETY, CALL LIGHT IN REACH,CONTINUE TO MONITOR.
[2018-10-01 04:07] VITALS: BP 149/51
--- NOTE | 2018-10-01 04:18 | NUR ---
REPAIRER ART OBJECTS AT BEDSIDE TO OBTAIN BLOOD. PT RESTING IN BED, BED ALARM FOR SAFETY. CALL LIGHT IN REACH,CONTINUE TO MONITOR.
[2018-10-01 05:04] LABS: IMMATURE GRANULOCYTES 0.6 % (0.0-5.0); MEAN CELL VOLUME 89.3 fL CALC (80.0-100.0); MEAN CORPUSCULAR HGB 27.3 pG CALC (26.0-32.0); MEAN CORPUSCULAR HGB CONC 30.6 g/L CALC (32.0-36.0); NEUT# 4.94 thou/uL (2.00-7.15); RED BLOOD COUNT 4.03 mill/uL (4.20-5.60); RED CELL DISTRI WIDTH 15.5 % (11.5-15.5)
[2018-10-01 05:27] LABS: ALBUMIN 3.2 g/dL (3.2-5.0); ALKALINE PHOSPHATASE 80 u/l (38-126); ANION GAP 13 (6-22 (CALC)); BILIRUBIN, TOTAL 0.5 mg/dL (0.0-1.4); BUN 21 mg/dL (8-23); BUN/CREATININE RATIO 19 (12-20 (CALC)); CARBON DIOXIDE 26 mmol/l (22-30); CHLORIDE 101 mmol/l (95-108); CREATININE 1.1 mg/dL (0.5-1.0); GFR 49 ML/MIN (>=60 (CALC)); GFR FOR AFR.AMER. 59 ML/MIN (>=60 (CALC)); LIPASE < 10 u/l (23-300); POTASSIUM 4.3 mmol/l (3.5-5.1); SGOT/AST 17 u/l (9-36); SODIUM 136 mmol/l (137-146); TOTAL PROTEIN 6.1 g/dL (6.3-8.2)
[2018-10-01 05:32] LABS: AMYLASE < 30 u/l (30-110); MAGNESIUM 1.5 mg/dL (1.6-2.3)
[2018-10-01 07:39] VITALS: BP 124/58
[2018-10-01 08:08] VITALS: BP 125/49
--- NOTE | 2018-10-01 08:58 | NUR ---
Preliminary blood culture results called to , gram (-) mari in 1 of 4 bottles. The patient has a positive urine culture for E.coli, we are currently awaiting C+S. We will increase rocephin to 2 grams daily per and follow C+S closely. NAKUL NEAL,MICAELAD
--- NOTE | 2018-10-01 09:04 | NUR ---
ASSESSMENT DONE. PT IS A&O X2 BUT FORGETFUL AT TIMES. MEDICATED PT WITH OXYCONTIN FOR PAIN 12/04 SEE EMAR. PT DENIES ANY OTHER NEEDS AT THIS TIME. SAFETY PRECAUTIONS REINFORCED AND AND CALL LIGHT IN REACH. BED ALARM IN PLACE.
[2018-10-01 09:40] LABS: INTERNATIONAL NORMALIZED RATIO 1.3 RATIO (0.7-1.3); PROTHROMBIN TIME 13.5 SECONDS (9.0-12.5)
--- NOTE | 2018-10-01 11:36 | NUR ---
DR. HAMILTON AT BEDSIDE TO ASSESS PT AND DISCUSS POC WITH PT. NOTIFED MD THAT I DID NOT GIVE BP MEDS BP 125/49. CALL LIGHT IN REACH.
[2018-10-01 14:40] VITALS: BP 129/61
--- NOTE | 2018-10-01 16:00 | NUR ---
PT IS SLEEPING IN BED WITH NO S/S OF DISTRESS NOTED. CALL LIGHT IN REACH.
--- NOTE | 2018-10-01 18:45 | NUR ---
BEDSIDE REPORT RECEIVED FROM ERICA OBRIEN. PT RESTING IN BED HIGH FOWLERS; ALERT AND ORIENTED. RESPIRATIONS EVEN AND UNLAORED ON ROOM AIR; OXYGEN AT BEDSIDE PRN. PLAN OF CARE REVIEWED. PT ENCOURAGED TO VERBALIZE CONCERNS. STATES UNDERSTANDING. SAFETY MEASURES IN PLACE. CALL LIGHT WITHIN REACH.
[2018-10-01 19:00] VITALS: BP 100/63
--- NOTE | 2018-10-01 21:41 | NUR ---
AT START OF SHIFT PT REPORTED THAT SHE IS NEVER PAIN FREE ON HER COCCYX, BUT THAT SHE WAS COMFORTABLE. PAIN CURRENTLY RATED 7/10 AND SCHEDULED OXYCONTIN ADMINISTERED. PT REQUESTS MORE CRACKERS, NO NEEDS OR CONCERNS. BED ALARM ON. CALL LIGHT WITHIN REACH.
--- NOTE | 2018-10-02 00:23 | NUR ---
PT UP TO BSC TO VOID WITH ONE PERSON ASSIST. DENIES PAIN AT THIS TIME. IV SITE APPEARS HEALTHY AND FLUSHES. NO REQUESTS OR CONCERNS AT THIS TIME. SAFETY MEASURES IN PLACE INCLUDING BED ALARM. CALL LIGHT WIHTIN REACH.
[2018-10-02 03:50] VITALS: BP 140/75
--- NOTE | 2018-10-02 04:26 | NUR ---
PT ASLEEP AT THIS TIME WITH NO SIGNS OF DISTRESS. RESPIRATIONS EVEN AND UNLABORED ON ROOM AIR. OXYGEN SATURATIONS HAVE REMAINED ABOVE 90%. NO ACUTE CHANGES IN CONDITION THROUGHOUT THE NIGHT. SAFETY MEASURES IN PLACE. CALL LIGHT WITHIN REACH.
[2018-10-02 05:40] LABS: HEMATOCRIT 37.5 % (37.0-47.0); HEMOGLOBIN 11.2 g/dl (12.0-16.0); IMMATURE GRANULOCYTES 0.4 % (0.0-5.0); MEAN CELL VOLUME 90.6 fL CALC (80.0-100.0); MEAN CORPUSCULAR HGB 27.1 pG CALC (26.0-32.0); MEAN CORPUSCULAR HGB CONC 29.9 g/L CALC (32.0-36.0); NEUT# 2.08 thou/uL (2.00-7.15); RED BLOOD COUNT 4.14 mill/uL (4.20-5.60); RED CELL DISTRI WIDTH 15.8 % (11.5-15.5)
[2018-10-02 05:52] LABS: INTERNATIONAL NORMALIZED RATIO 1.1 RATIO (0.7-1.3); PROTHROMBIN TIME 11.4 SECONDS (9.0-12.5)
[2018-10-02 05:54] LABS: ALKALINE PHOSPHATASE 85 u/l (38-126); ANION GAP 11 (6-22 (CALC)); BUN 18 mg/dL (8-23); BUN/CREATININE RATIO 18 (12-20 (CALC)); CARBON DIOXIDE 28 mmol/l (22-30); CHLORIDE 103 mmol/l (95-108); GFR 55 ML/MIN (>=60 (CALC)); GFR FOR AFR.AMER. > 60 ML/MIN (>=60 (CALC)); MAGNESIUM 1.6 mg/dL (1.6-2.3); SGOT/AST 17 u/l (9-36); SODIUM 138 mmol/l (137-146); TOTAL PROTEIN 5.9 g/dL (6.3-8.2)
[2018-10-02 05:58] LABS: BILIRUBIN, TOTAL 0.2 mg/dL (0.0-1.4)
[2018-10-02 07:19] VITALS: BP 119/60
--- NOTE | 2018-10-02 08:31 | NUR ---
ASSESSMENT DONE. PT IS A&O X3. MEDICATED PT WITH OXYCONTIN FOR PAIN 10/04 SEE EMAR. RESPS EVEN AND UNLABORED. PT DENIES ANY OTHER NEEDS AT THIS TIME. SAFETY PRECAUTIONS REINFORCED AND CALL LIGHT IN REACH.
[2018-10-02 09:36] LABS: CHOLESTEROL HDL RATIO 3.4 (<4.4 (CALC))
--- NOTE | 2018-10-02 11:15 | NUR ---
PT IS IN SEMI FOWLERS RESTING. PT STATED PAIN IS LESS 3/10. PT IS DROWSY. PT DENIES ANY NEEDS AT THIS TIME. CALL LIGHT IN REACH.
--- NOTE | 2018-10-02 14:35 | NUR ---
ASSISTED PT TO THE BSC AND PT VOID. ASSISTED PT TO THE RECLINER. PT IS NOW SITTING IN RECLINER. PT DENIES NEEDS AT THIS TIME. CALL LIGHT IN REACH.
--- NOTE | 2018-10-02 15:16 | NUR ---
EDUCATED PT ON HOW TO USE THE I.S. PT VERBALIZED UNDERSTANDING. PT IS SITTING IN RECLINER. PT STATED THAT SHE WANTS TO TAKE A SHOWER LATER. CALL LIGHT IN REACH.
[2018-10-02 16:00] VITALS: BP 92/47
[2018-10-02 19:35] VITALS: BP 125/60
--- NOTE | 2018-10-02 19:45 | NUR ---
PT RESTING IN BED WATCHING TV, NO SIGNS OF DISTRESS NOTED, RESP EVEN AND UNLABORED. ALERT AND ORIENTED X3, DISCUSSED POC, PT IN AGREEMENT. VOICES NO NEEDS OR COMPLAINTS AT THIS TIME. ASSESSMENT COMPLETED, CALL LIGHT IN REACH,CONTINUE TO MONITOR.
--- NOTE | 2018-10-02 22:07 | NUR ---
PT RESTING IN BED WATCHING TV, NO SIGNS OF DISTRESS NOTED, RESP EVEN AND UNLABORED.C/O HEADACHE, MEDICATED WITH FIORICET, CALL LIGHT IN REACH,CONTINUE TO MONITOR.
--- NOTE | 2018-10-03 03:17 | NUR ---
PT RESTING IN BED WITH EYES CLOSED, NO SIGNS OF DISTRESS NOTED, RESP EVEN AND UNLABORED. CALL LIGHT IN REACH,CONTINUE TO MONITOR.
[2018-10-03 04:50] VITALS: BP 102/59
[2018-10-03 05:29] LABS: HEMATOCRIT 38.4 % (37.0-47.0); HEMOGLOBIN 11.4 g/dl (12.0-16.0); IMMATURE GRANULOCYTES 0.4 % (0.0-5.0); MEAN CELL VOLUME 91.2 fL CALC (80.0-100.0); MEAN CORPUSCULAR HGB 27.1 pG CALC (26.0-32.0); MEAN CORPUSCULAR HGB CONC 29.7 g/L CALC (32.0-36.0); RED BLOOD COUNT 4.21 mill/uL (4.20-5.60); RED CELL DISTRI WIDTH 15.7 % (11.5-15.5)
[2018-10-03 05:48] LABS: ANION GAP 12 (6-22 (CALC)); BUN 18 mg/dL (8-23); BUN/CREATININE RATIO 19 (12-20 (CALC)); CARBON DIOXIDE 27 mmol/l (22-30); CHLORIDE 102 mmol/l (95-108); CREATININE 0.9 mg/dL (0.5-1.0); GFR > 60 ML/MIN (>=60 (CALC)); GFR FOR AFR.AMER. > 60 ML/MIN (>=60 (CALC)); INTERNATIONAL NORMALIZED RATIO 1.2 RATIO (0.7-1.3); MAGNESIUM 1.7 mg/dL (1.6-2.3); POTASSIUM 4.7 mmol/l (3.5-5.1); PROTHROMBIN TIME 12.5 SECONDS (9.0-12.5); SODIUM 136 mmol/l (137-146)
--- NOTE | 2018-10-03 07:28 | NUR ---
SHIFT CHANGE REPORT, PT AWAKE ALERT AND ORIENTED SITTING UP IN BED AT THIS TIME HAVING MEAL, DENIES PAIN/DISCOMFORT, ALL NEEDS ADDRESSED, CALL KIRKLAND IN REACH.
[2018-10-03 08:02] VITALS: BP 123/70
--- NOTE | 2018-10-03 09:43 | NUR ---
HARDEEP ROUNDED, ADVISED SHE ORDERED ADDITIONAL 5MG COUMADIN TO BE GIVEN @ 1400 BUT ON FOR 1000 SHE WAS UNABLE TO CHANGE TIMING IN COMPUTER.
--- NOTE | 2018-10-03 11:43 | NUR ---
SITTING UP IN RECLINER HAVING MEAL, ALL NEEDS ADDRESSED.
--- NOTE | 2018-10-03 12:57 | NUR ---
MEDICAL TEAM ROUNDED AND DISCUSSED PLAN OF CARE, PT STAWTED UNDERSTANDING AND HAD CONCERNS ADDRESSED.
[2018-10-03 15:00] VITALS: BP 134/68
--- NOTE | 2018-10-03 16:10 | NUR ---
RESTING IN BED AT THIS TIME, WANTS TO CONTACT SISTER BUT NO RESPONSE WHEN CALLED VIA PHONE, PT STATED SHE LOST HER PHONE WITH ALL IMPORTANT NUMBERS , JUST BOUGHT A NEW ONE BUT HADN'T GOTTEN THE CHANCE TO SET IT UP YET. ALL NEEDS ADDRESSED, WILL CONTINUE TO MONITOR.
--- NOTE | 2018-10-03 19:00 | NUR ---
RECEIVED REPORT FROM NURSE GAYLE PT SEEN AMBULATING USING WALKER, NO DISCOMFORTS NOTED AT THIS TIME, CALL LIGHT AT REACH.
[2018-10-03 19:10] VITALS: BP 159/69
--- NOTE | 2018-10-03 21:00 | NUR ---
PATIENT ALERT AND ORIENTEDX 3 ABLE TO MAKE NEEDS KNOWN, CONTINENT OF BOWEL AND BLADDER, WITH EVEN UNLABORED BREATHING, NOTED TO HAVE +1 EDEMA ON BILATERAL LEGS FEET OFFLOADED, C/O PAIN ON BOTH LEGS AND LOWER BACK ON SCHEDULED OXYCONTIN FOR PAIN MANAGEMENT EFFECTIVE, WILL CONTINUE TO MONITOR, CALL LIGHT AT REACH.
--- NOTE | 2018-10-04 | NUR ---
PATIENT RESTING IN BED, APPEARS TO BE SLEEPING, NO DISCOMFORTS NOTED AT THIS TIME, WITH EEVN UNLABORED BREATHING, CALL LIGHT AT REACH.
--- NOTE | 2018-10-04 04:02 | NUR ---
PATIENT RESTING IN BED WITH EYES CLOSED NO SIGNS OF DISTRESS, CALL LIGHT WITHIN REACH.
[2018-10-04 05:01] VITALS: BP 169/63
[2018-10-04 05:20] LABS: HEMATOCRIT 45.9 % (37.0-47.0); HEMOGLOBIN 13.5 g/dl (12.0-16.0); MEAN CELL VOLUME 91.4 fL CALC (80.0-100.0); MEAN CORPUSCULAR HGB 26.9 pG CALC (26.0-32.0); MEAN CORPUSCULAR HGB CONC 29.4 g/L CALC (32.0-36.0); RED BLOOD COUNT 5.02 mill/uL (4.20-5.60); RED CELL DISTRI WIDTH 15.7 % (11.5-15.5)
[2018-10-04 05:33] LABS: INTERNATIONAL NORMALIZED RATIO 1.3 RATIO (0.7-1.3); PROTHROMBIN TIME 13.9 SECONDS (9.0-12.5)
[2018-10-04 05:40] LABS: ANION GAP 17 (6-22 (CALC)); BUN 17 mg/dL (8-23); BUN/CREATININE RATIO 18 (12-20 (CALC)); CARBON DIOXIDE 28 mmol/l (22-30); CHLORIDE 103 mmol/l (95-108); CREATININE 0.9 mg/dL (0.5-1.0); GFR > 60 ML/MIN (>=60 (CALC)); GFR FOR AFR.AMER. > 60 ML/MIN (>=60 (CALC)); POTASSIUM 4.6 mmol/l (3.5-5.1); SODIUM 143 mmol/l (137-146)
[2018-10-04 06:10] VITALS: BP 148/86
[2018-10-04 07:26] VITALS: BP 157/59
--- NOTE | 2018-10-04 08:33 | NUR ---
PT IS SITTING IN RECLINER. ASSESSMENT DONE. RESPS EVEN AND UNLABORED. PT IS A&O X3. MEDICATED PT WITH OXYCONTIN FOR PAIN IN COCCYX 12/04 SEE EMAR. PT DENIES ANY OTHER NEEDS AT THIS TIME. CALL LIGHT IN REACH.
--- NOTE | 2018-10-04 12:30 | NUR ---
DR. HAMILTON AT [facility] TO DISCUSS POC WITH PT. PT VERBALIZED UNDERSTANDING . NO S/S OF DISTRESS NOTED. CALL LIGHT IN REACH.
[2018-10-04 15:45] VITALS: BP 149/68
--- NOTE | 2018-10-04 16:03 | NUR ---
Pt seen for treatment with pm. She was in bed c/o LB (lower glut) pain that she has all the time. She performed LE ex in supine and sitting. Supine to and from sit with min assist only. Pt ambulated 2 x 40' with RW and CGA/SBA. No LOB was noted. Pt [facility] 6 click was 16, home with home health. Pt left in bed with call carrington in reach. 02 sat upper 90's.
--- NOTE | 2018-10-04 16:30 | NUR ---
PT IS RESTING IN BED WITH NO S/S OF DISTRESS NOTED. PT DENIES NEEDS AT THIS TIME. CALL LIGHT IN REACH.
--- NOTE | 2018-10-04 17:19 | NUR ---
PT AMBULATED TO RESTROOM TO VOID, NOW SITTING UP IN RECLINER; CALL KIRKLAND AND TELE PHONE IN REACH.
--- NOTE | 2018-10-04 19:00 | NUR ---
RECEIVED REPORT FROM NURSE MICAH, PATIENT RESTING IN BED, CURRENTLY WATCHING TV, EVEN UNLABORED BREATHING CALL LIGHT AT REACH.
[2018-10-04 19:10] VITALS: BP 128/59
--- NOTE | 2018-10-04 20:30 | NUR ---
PATIENT ALERT AND ORIENTEDX 3 ABLE TO MAKE NEEDS KNOWN, CONTINENT OF BOWEL AND BLADDER, WITH VEGA PICC DOUBLE LUMEN, PATENT FLUSHES WELL, LAST BM 10/03, REQUESTED 2100 MEDS TO BE GIVEN EARLY STATED WAS NOT ABLE TO NAP AFTERNNON, REQUESTED SLEEP AIDE. MEDS GIVEN, CUURENTLY RESTING IN BED, WILL CONTINUE TO MONITOR.
--- NOTE | 2018-10-05 00:21 | NUR ---
PATIENT APPEARS TO BE RESTING IN BED, EYES CLOSED, NO DISCOMFORTS NOTED AT THIS TIME, WITH EVEN UNLABORED BREATHING CALL LIGHT WITHINREACH.
[2018-10-05 03:57] VITALS: BP 156/69
--- NOTE | 2018-10-05 04:54 | NUR ---
PATIENT APPEARS TO BE RESTING IN BED WITH EYES CLOSED NO DISCOMFORTS NOTED AT THIS TIME CALL LIGTH WITHIN [facility].
--- NOTE | 2018-10-05 07:00 | NUR ---
SHIFT CHANGE REPORT, PT LYING SUPINE WITH EYES CLOSED, RESPONDS TO VERBAL STIMULI, C/O GENERALISED PAIN, ALL NEEDS ADDRESSED, CALL KIRKLAND IN REACH.
[2018-10-05 07:27] VITALS: BP 157/65
[2018-10-05] MEDS ORDERED: ROCEPHIN 2 GM2 GM IV (11:21)
[2018-10-05] MEDS ORDERED: OXYCODONE40 MG PO (11:24)
--- NOTE | 2018-10-05 11:38 | NUR ---
RESTING IN BED AT THIS TIME, DR HAMILTON ROUNDED, DISCUSSED D/C PLANS WITH PT WHO STATED UNDERSTANDING. PT RESTING IN BED, PHYSICAL THERAPIST HERE TO EVAL AND TREAT BUT PT REFUSED STATING SHE WILL DO IN LATER, WILL CONTINUE TO MONITOR.
--- NOTE | 2018-10-05 11:39 | NUR ---
Attempted treatment x 2 this am but pt wanted therapy to return later.
[2018-10-05 15:11] VITALS: BP 147/69
--- NOTE | 2018-10-05 15:22 | NUR ---
Miss Sloan was supine in bed when entering room. Pt. agreed to participate in therapy. Supine to sit (independant), Sit to stand (SBA) VC for correct hand placement and safety precautions as she ascends to a standing position. Gait training x 75 ft (SBA) VC to keep FWW closer to body as she ambulates. Stand to sit (SBA) VC for hand placement as she descends to a seated position. Pt. was seated in relining chair w/ julia salguero and cll carrington by her side. Nurse notified of treatment also that pt. in seated position in chair as exiting room. AM Pac click six remained the same.
--- NOTE | 2018-10-05 19:15 | NUR ---
Discharge instructions given. Patient verbalizes understanding of same. Discharged in stable condition via Wheelchair to Home with *Other. All belongings sent with pt. PT SENT HOME VIA TAXI CAB, ATTEMPTS TO REACH SISTER AT HOME WAS FUTILE, PT REPORTED THERE WAS CHANGE IN PHONE NUMBERS RESUTING IN THE DIFFICULTY IN REACHING HER SISTER BUT SHE THINKS HER SISTER IS AT HOME.
== END 2018-10-05 19:00 | disposition home health service (06) | DRG 690 ==
LOC: ED 01:00 → ED-I 01:26 → ED 02:31 → MS2 02:32
PROVIDERS: Family Medicine; Internal Medicine Nephrology; Nurse Practitioner Family; ADMIT Internal Medicine; ATTEND Internal Medicine
PROC: 0T9B70Z Drainage of Bladder with Drainage Device, Via Natural or Artificial Opening (ICD-10-PCS; 2018-09-30)
PROC: 02HV33Z Insertion of Infusion Device into Superior Vena Cava, Percutaneous Approach (ICD-10-PCS; principal; 2018-10-04)
PROC: B518ZZA Fluoroscopy of Superior Vena Cava, Guidance (ICD-10-PCS; 2018-10-04)
DX: N39.0 Urinary tract infection, site not specified (principal); R78.81 Bacteremia; R41.82 Altered mental status, unspecified; T40.2X5A Adverse effect of other opioids, initial encounter; I10 Essential (primary) hypertension; E11.42 Type 2 diabetes mellitus with diabetic polyneuropathy; I25.10 Atherosclerotic heart disease of native coronary artery without angina pectoris; M19.90 Unspecified osteoarthritis, unspecified site; F41.8 Other specified anxiety disorders; E03.9 Hypothyroidism, unspecified; M48.061 Spinal stenosis, lumbar region without neurogenic claudication; E66.01 Morbid (severe) obesity due to excess calories; G89.4 Chronic pain syndrome; K59.00 Constipation, unspecified; G47.00 Insomnia, unspecified; M62.81 Muscle weakness (generalized); B96.20 Unspecified Escherichia coli [E. coli] as the cause of diseases classified elsewhere; Z79.891 Long term (current) use of opiate analgesic; Z79.01 Long term (current) use of anticoagulants; Z68.35 Body mass index [BMI] 35.0-35.9, adult; Z86.718 Personal history of other venous thrombosis and embolism; Z95.5 Presence of coronary angioplasty implant and graft; Z95.828 Presence of other vascular implants and grafts; Z98.84 Bariatric surgery status
CPT/HCPCS: G0378; J1650

== ENCOUNTER 2018-10-18 16:00 | Emergency (ER) | payer MEDICARE ==
[~2018-10-18] VITALS: Ht 167.6 cm; Wt 100.0 kg
[~2018-10-18 16:00] MED LIST changes: +OXYCODONE40 MG PO; +ROCEPHIN 2 GM2 GM IV
[2018-10-18 17:31] LABS: HEMATOCRIT 43.6 % (37.0-47.0); HEMOGLOBIN 13.5 g/dl (12.0-16.0); IMMATURE GRANULOCYTES 0.5 % (0.0-5.0); MEAN CELL VOLUME 86.9 fL CALC (80.0-100.0); MEAN CORPUSCULAR HGB 26.9 pG CALC (26.0-32.0); NEUT# 6.53 thou/uL (2.00-7.15); RED BLOOD COUNT 5.02 mill/uL (4.20-5.60); RED CELL DISTRI WIDTH 15.3 % (11.5-15.5)
[2018-10-18 17:47] LABS: ALBUMIN 4.3 g/dL (3.2-5.0); ALKALINE PHOSPHATASE 115 u/l (38-126); ANION GAP 15 (6-22 (CALC)); BILIRUBIN, TOTAL 0.5 mg/dL (0.0-1.4); BUN 15 mg/dL (8-23); BUN/CREATININE RATIO 21 (12-20 (CALC)); CARBON DIOXIDE 29 mmol/l (22-30); CHLORIDE 100 mmol/l (95-108); CREATININE 0.7 mg/dL (0.5-1.0); GFR > 60 ML/MIN (>=60 (CALC)); GFR FOR AFR.AMER. > 60 ML/MIN (>=60 (CALC)); POTASSIUM 4.2 mmol/l (3.5-5.1); SGOT/AST 19 u/l (9-36); SODIUM 139 mmol/l (137-146); TOTAL PROTEIN 8.2 g/dL (6.3-8.2)
[2018-10-18 17:51] LABS: INTERNATIONAL NORMALIZED RATIO 2.4 RATIO (0.7-1.3)
[2018-10-18 19:01] LABS: URINE BLOOD DIPSTICK NEGATIVE (NEGATIVE); URINE COLOR YELLOW; URINE GLUCOSE - DIPSTICK 100 mg/dL (NEGATIVE); URINE KETONE 15 mg/dL (NEGATIVE); URINE LEUK ESTERASE NEGATIVE (NEGATIVE); URINE NITRITE - DIPSTICK NEGATIVE (Negative); URINE PROTEIN - DIPSTICK 100 mg/dL (NEG-TRACE); URINE UROBILINOGEN - DIPSTICK 0.2 E.U./dL (0.2)
[2018-10-18 19:02] LABS: URINE BILIRUBIN - DIPSTICK NEGATIVE (NEGATIVE)
[2018-10-18 19:03] LABS: URINE RBC 0-2 RBC/hpf (0-5); URINE SQUAMOUS EPITHELIAL CELL FEW EPI/hpf (0-FEW); URINE WBC 0-2 WBC/hpf (0-5)
[2018-10-18 20:53] VITALS: BP 182/74
== END 2018-10-18 21:03 | disposition home or self-care (01) ==
LOC: ED 16:00
DX: G89.29 Other chronic pain (principal); M54.9 Dorsalgia, unspecified; E11.9 Type 2 diabetes mellitus without complications; I10 Essential (primary) hypertension; E03.9 Hypothyroidism, unspecified; Z79.84 Long term (current) use of oral hypoglycemic drugs; Z79.899 Other long term (current) drug therapy

== ENCOUNTER 2018-11-23 22:30 | Emergency (ER) | payer MEDICARE ==
[~2018-11-23] VITALS: Ht 167.6 cm; Wt 90.9 kg
[2018-11-23] MEDS ORDERED: WARFARIN SODIUM5 MG PO (22:49)
[2018-11-23 23:16] LABS: HEMATOCRIT 40.7 % (37.0-47.0); HEMOGLOBIN 12.5 g/dl (12.0-16.0); IMMATURE GRANULOCYTES 0.4 % (0.0-5.0); MEAN CELL VOLUME 87.5 fL CALC (80.0-100.0); MEAN CORPUSCULAR HGB 26.9 pG CALC (26.0-32.0); MEAN CORPUSCULAR HGB CONC 30.7 g/L CALC (32.0-36.0); NEUT# 4.23 thou/uL (2.00-7.15); RED BLOOD COUNT 4.65 mill/uL (4.20-5.60); RED CELL DISTRI WIDTH 16.8 % (11.5-15.5)
[2018-11-23 23:16] LABS: URINE BILIRUBIN - DIPSTICK NEGATIVE (NEGATIVE); URINE BLOOD DIPSTICK NEGATIVE (NEGATIVE); URINE COLOR YELLOW; URINE GLUCOSE - DIPSTICK NEGATIVE (NEGATIVE); URINE KETONE NEGATIVE (NEGATIVE); URINE LEUK ESTERASE NEGATIVE (NEGATIVE); URINE NITRITE - DIPSTICK NEGATIVE (Negative); URINE PROTEIN - DIPSTICK TRACE mg/dL (NEG-TRACE); URINE SPECIFIC GRAVITY 1.015; URINE UROBILINOGEN - DIPSTICK 0.2 E.U./dL (0.2)
[2018-11-23 23:33] LABS: ALBUMIN 3.8 g/dL (3.2-5.0); ALKALINE PHOSPHATASE 107 u/l (38-126); AMYLASE 39 u/l (30-110); ANION GAP 12 (6-22 (CALC)); BILIRUBIN, TOTAL 0.7 mg/dL (0.0-1.4); BUN 17 mg/dL (8-23); BUN/CREATININE RATIO 23 (12-20 (CALC)); CARBON DIOXIDE 26 mmol/l (22-30); CHLORIDE 107 mmol/l (95-108); CREATININE 0.7 mg/dL (0.5-1.0); GFR > 60 ML/MIN (>=60 (CALC)); GFR FOR AFR.AMER. > 60 ML/MIN (>=60 (CALC)); LIPASE 21 u/l (23-300); POTASSIUM 3.8 mmol/l (3.5-5.1); SGOT/AST 17 u/l (9-36); SODIUM 141 mmol/l (137-146); TOTAL PROTEIN 7.3 g/dL (6.3-8.2)
[2018-11-23 23:45] LABS: MYOGLOBIN 40 ng/mL (0 - 62)
[2018-11-24 00:13] LABS: BARBITURATES NEGATIVE (NEGATIVE); COCAINE NEGATIVE (NEGATIVE); METHADONE NEGATIVE (NEGATIVE); OXCYCODONE POSITIVE (NEGATIVE); TETRAHYDROCANNABIONOL NEGATIVE (NEGATIVE); TRICYLIC ANTIDEPRESSANTS NEGATIVE (NEGATIVE)
[2018-11-24] MEDS ORDERED: PREVACID30 M3 PO (02:16)
[2018-11-24 07:21] VITALS: BP 171/64
== END 2018-11-24 07:41 | disposition home or self-care (01) ==
LOC: ED 22:30
PROVIDERS: Emergency Medicine
DX: K29.70 Gastritis, unspecified, without bleeding (principal); R10.13 Epigastric pain; M54.2 Cervicalgia; I10 Essential (primary) hypertension; E11.9 Type 2 diabetes mellitus without complications; Z95.5 Presence of coronary angioplasty implant and graft

== ENCOUNTER 2018-11-28 21:11 | Emergency (ER) | payer MEDICARE ==
[~2018-11-28] VITALS: Ht 167.6 cm; Wt 90.0 kg
[~2018-11-28 21:11] MED LIST changes: +PREVACID30 M3 PO; +WARFARIN SODIUM5 MG PO
[2018-11-28 21:50] LABS: HEMATOCRIT 41.4 % (37.0-47.0); HEMOGLOBIN 12.7 g/dl (12.0-16.0); IMMATURE GRANULOCYTES 1.3 % (0.0-5.0); MEAN CELL VOLUME 88.3 fL CALC (80.0-100.0); MEAN CORPUSCULAR HGB 27.1 pG CALC (26.0-32.0); MEAN CORPUSCULAR HGB CONC 30.7 g/L CALC (32.0-36.0); NEUT# 5.26 thou/uL (2.00-7.15); RED BLOOD COUNT 4.69 mill/uL (4.20-5.60)
[2018-11-28 22:06] LABS: INTERNATIONAL NORMALIZED RATIO 1.6 RATIO (0.7-1.3); PROTHROMBIN TIME 16.8 SECONDS (9.0-12.5)
[2018-11-28 22:11] LABS: ALKALINE PHOSPHATASE 97 u/l (38-126); ANION GAP 12 (6-22 (CALC)); BILIRUBIN, TOTAL 0.7 mg/dL (0.0-1.4); BUN 24 mg/dL (8-23); BUN/CREATININE RATIO 29 (12-20 (CALC)); CARBON DIOXIDE 24 mmol/l (22-30); CHLORIDE 108 mmol/l (95-108); CREATININE 0.8 mg/dL (0.5-1.0); GFR > 60 ML/MIN (>=60 (CALC)); GFR FOR AFR.AMER. > 60 ML/MIN (>=60 (CALC)); POTASSIUM 3.2 mmol/l (3.5-5.1); SGOT/AST 17 u/l (9-36); SODIUM 141 mmol/l (137-146); TOTAL PROTEIN 7.4 g/dL (6.3-8.2)
[2018-11-28] MEDS ORDERED: CLONIDINE0.1 MG PO (23:17)
[2018-11-28] MEDS ORDERED: LOMOTIL2.5 MG PO (23:17)
[2018-11-29 00:05] VITALS: BP 132/48
== END 2018-11-29 00:05 | disposition home or self-care (01) ==
LOC: ED 21:11
PROVIDERS: Family Medicine
DX: F11.23 Opioid dependence with withdrawal (principal); K52.1 Toxic gastroenteritis and colitis; T40.2X5A Adverse effect of other opioids, initial encounter; M48.00 Spinal stenosis, site unspecified; E11.9 Type 2 diabetes mellitus without complications; I10 Essential (primary) hypertension; E03.9 Hypothyroidism, unspecified; Z95.5 Presence of coronary angioplasty implant and graft

== ENCOUNTER 2019-03-16 21:28 | Emergency (ER) | payer MEDICARE ==
[~2019-03-16] VITALS: Ht 167.6 cm; Wt 90.7 kg
[~2019-03-16 21:28] MED LIST changes: +ALPRAZOLAM ER0.5 MG PO; +CLONIDINE0.1 MG PO; +GABAPENTIN400 M2 PO; +LOMOTIL2.5 MG PO; +OXYCODONE HCL E20 M1 PO; +PHRENILIN1 TAB PO; +WARFARIN XX
[2019-03-16 22:59] LABS: HEMATOCRIT 41.1 % (37.0-47.0); HEMOGLOBIN 12.3 g/dl (12.0-16.0); IMMATURE GRANULOCYTES 0.1 % (0.0-5.0); MEAN CELL VOLUME 87.8 fL CALC (80.0-100.0); MEAN CORPUSCULAR HGB 26.3 pG CALC (26.0-32.0); MEAN CORPUSCULAR HGB CONC 29.9 g/L CALC (32.0-36.0); NEUT# 4.63 thou/uL (2.00-7.15); RED BLOOD COUNT 4.68 mill/uL (4.20-5.60); RED CELL DISTRI WIDTH 15.6 % (11.5-15.5)
[2019-03-16 23:17] LABS: ALBUMIN 4.1 g/dL (3.2-5.0); ALKALINE PHOSPHATASE 95 u/l (38-126); ANION GAP 14 (6-22 (CALC)); BILIRUBIN, TOTAL 0.6 mg/dL (0.0-1.4); BUN 28 mg/dL (8-23); BUN/CREATININE RATIO 30 (12-20 (CALC)); CHLORIDE 103 mmol/l (95-108); CREATININE 0.9 mg/dL (0.5-1.0); GFR > 60 ML/MIN (>=60 (CALC)); GFR FOR AFR.AMER. > 60 ML/MIN (>=60 (CALC)); POTASSIUM 3.8 mmol/l (3.5-5.1); SGOT/AST 23 u/l (9-36); SODIUM 136 mmol/l (137-146); TOTAL PROTEIN 7.5 g/dL (6.3-8.2)
[2019-03-16 23:20] LABS: CARBON DIOXIDE 23 mmol/l (22-30)
[2019-03-16 23:43] LABS: URINE BILIRUBIN - DIPSTICK NEGATIVE (NEGATIVE); URINE BLOOD DIPSTICK TRACE-INTACT (NEGATIVE); URINE COLOR YELLOW; URINE GLUCOSE - DIPSTICK 100 mg/dL (NEGATIVE); URINE KETONE TRACE mg/dL (NEGATIVE); URINE NITRITE - DIPSTICK NEGATIVE (Negative); URINE PROTEIN - DIPSTICK NEGATIVE (NEG-TRACE); URINE SPECIFIC GRAVITY 1.015; URINE UROBILINOGEN - DIPSTICK 0.2 E.U./dL (0.2)
[2019-03-16 23:47] LABS: TSH, 3RD GENERATION 1.24 uIU/mL (0.47 - 4.68)
[2019-03-17 01:31] LABS: URINE LEUK ESTERASE MODERATE (NEGATIVE)
[2019-03-17 01:39] LABS: URINE BACTERIA FEW hpf; URINE SQUAMOUS EPITHELIAL CELL FEW EPI/hpf (0-FEW); URINE WBC 20-50 WBC/hpf (0-5)
[2019-03-17] MEDS ORDERED: BACTRIM DS1 TAB PO (02:01)
[2019-03-17 07:04] VITALS: BP 154/72
[2019-04-05] MEDS ORDERED: OXYCODONE HCL E20 M1 PO (11:38)
[2019-05-10] MEDS ORDERED: OXYCODONE HCL E20 M1 PO (11:12)
[2019-05-18] MEDS ORDERED: OXYCODONE HCL E20 M1 PO (08:56)
== END 2019-03-17 07:48 | disposition home or self-care (01) ==
LOC: ED 21:28
PROVIDERS: Family Medicine
DX: R10.84 Generalized abdominal pain (principal); G89.29 Other chronic pain; N39.0 Urinary tract infection, site not specified; E11.9 Type 2 diabetes mellitus without complications; I10 Essential (primary) hypertension; E03.9 Hypothyroidism, unspecified; Z95.5 Presence of coronary angioplasty implant and graft

== ENCOUNTER 2019-09-20 00:05 | Observation (INO) | payer MEDICARE ==
[2019-09-20] VITALS (7 sets, daily range): BP systolic 99–181; BP diastolic 57–98
[~2019-09-20] VITALS: Ht 167.6 cm; Wt 96.0 kg
[~2019-09-20 00:05] MED LIST changes: +BACTRIM DS1 TAB PO
[2019-09-20 00:57] LABS: URINE BILIRUBIN - DIPSTICK NEGATIVE (NEGATIVE); URINE BLOOD DIPSTICK NEGATIVE (NEGATIVE); URINE COLOR YELLOW; URINE GLUCOSE - DIPSTICK 100 mg/dL (NEGATIVE); URINE KETONE TRACE mg/dL (NEGATIVE); URINE LEUK ESTERASE TRACE (NEGATIVE); URINE NITRITE - DIPSTICK NEGATIVE (Negative); URINE PH 5.5 (4.5-8.0); URINE PROTEIN - DIPSTICK 30 mg/dL (NEG-TRACE); URINE SPECIFIC GRAVITY >=1.030; URINE UROBILINOGEN - DIPSTICK 0.2 E.U./dL (0.2)
[2019-09-20 00:57] LABS: HEMATOCRIT 40.4 % (37.0-47.0); HEMOGLOBIN 12.1 g/dl (12.0-16.0); IMMATURE GRANULOCYTES 0.3 % (0.0-5.0); MEAN CELL VOLUME 90.4 fL CALC (80.0-100.0); MEAN CORPUSCULAR HGB 27.1 pG CALC (26.0-32.0); NEUT# 4.14 thou/uL (2.00-7.15); RED BLOOD COUNT 4.47 mill/uL (4.20-5.60)
[2019-09-20 00:58] LABS: URINE EPITHELIAL CELLS MODERATE EPI/hpf (0-FEW); URINE MUCUS MODERATE hpf (NONE-FEW); URINE WBC 0-2 WBC/hpf (0-5)
[2019-09-20 01:17] LABS: ALBUMIN 3.6 g/dL (3.2-5.0); ALKALINE PHOSPHATASE 75 u/l (38-126); AMYLASE 40 u/l (30-110); ANION GAP 10 (6-22 (CALC)); BILIRUBIN, TOTAL 0.4 mg/dL (0.0-1.4); BUN 20 mg/dL (8-23); BUN/CREATININE RATIO 26 (12-20 (CALC)); CARBON DIOXIDE 26 mmol/l (22-30); CHLORIDE 105 mmol/l (95-108); CREATININE 0.8 mg/dL (0.5-1.0); GFR > 60 ML/MIN (>=60 (CALC)); GFR FOR AFR.AMER. > 60 ML/MIN (>=60 (CALC)); LIPASE 15 u/l (23-300); POTASSIUM 4.1 mmol/l (3.5-5.1); SGOT/AST 18 u/l (9-36); SODIUM 137 mmol/l (137-146); TOTAL PROTEIN 6.8 g/dL (6.3-8.2)
[2019-09-20 01:27] LABS: INTERNATIONAL NORMALIZED RATIO 6.1 RATIO (0.7-1.3); PROTHROMBIN TIME 58.7 SECONDS (9.0-12.5)
[2019-09-20 01:30] LABS: MYOGLOBIN 43 ng/mL (0 - 62)
[2019-09-20 08:56] LABS: INTERNATIONAL NORMALIZED RATIO 6.1 RATIO (0.7-1.3); PROTHROMBIN TIME 58.9 SECONDS (9.0-12.5)
[2019-09-21] VITALS (7 sets, daily range): BP systolic 96–136; BP diastolic 44–73
[2019-09-21 05:13] LABS: HEMATOCRIT 38.5 % (37.0-47.0); HEMOGLOBIN 11.3 g/dl (12.0-16.0); MEAN CORPUSCULAR HGB 26.4 pG CALC (26.0-32.0); MEAN CORPUSCULAR HGB CONC 29.4 g/dL CAL (32.0-36.0); RED BLOOD COUNT 4.28 mill/uL (4.20-5.60); RED CELL DISTRI WIDTH 17.4 % (11.5-15.5)
[2019-09-21 05:32] LABS: ALBUMIN 3.1 g/dL (3.2-5.0); BILIRUBIN, TOTAL 0.3 mg/dL (0.0-1.4); CREATININE 1.1 mg/dL (0.5-1.0); POTASSIUM 4.3 mmol/l (3.5-5.1); TOTAL PROTEIN 5.9 g/dL (6.3-8.2)
[2019-09-21 05:46] LABS: INTERNATIONAL NORMALIZED RATIO 3.4 RATIO (0.7-1.3); PROTHROMBIN TIME 34.1 SECONDS (9.0-12.5)
[2019-09-22 03:30] VITALS: BP 118/63
[2019-09-22 08:20] VITALS: BP 135/39
[2019-09-22] MEDS ORDERED: OXYCODONE HCL E20 M1 PO (11:02)
[2019-09-22] MEDS ORDERED: ZOLPIDEM10 MG PO (11:02)
[2019-09-22] MEDS ORDERED: ALPRAZOLAM ER0.5 MG PO (11:02)
[2019-09-22] MEDS ORDERED: WARFARIN5 MG PO (11:02)
[2019-09-22 11:20] VITALS: BP 117/52
[2019-09-22 14:17] LABS: INTERNATIONAL NORMALIZED RATIO 1.6 RATIO (0.7-1.3); PROTHROMBIN TIME 16.6 SECONDS (9.0-12.5)
[2019-09-22 15:27] VITALS: BP 102/57
[2019-09-22 20:00] VITALS: BP 121/53
[2019-09-23] VITALS: BP 105/52
[2019-09-23 04:05] VITALS: BP 138/68
[2019-09-23 07:13] VITALS: BP 94/62
[2019-09-23 10:45] VITALS: BP 108/57
[2019-09-23 12:32] LABS: INTERNATIONAL NORMALIZED RATIO 1.3 RATIO (0.7-1.3); PROTHROMBIN TIME 13.1 SECONDS (9.0-12.5)
[2019-11-22] MEDS ORDERED: OXYCODONE HCL E20 M1 PO (13:44)
[2019-12-20] MEDS ORDERED: OXYCODONE HCL E20 M1 PO (11:53)
[2020-01-17] MEDS ORDERED: OXYCODONE HCL E20 M1 PO (14:35)
== END 2019-09-23 13:58 ==
LOC: ED 00:05 → ED-I 01:24 → ED 01:38 → MS2 01:39
PROVIDERS: Emergency Medicine; Internal Medicine; Nurse Practitioner Family; ADMIT Internal Medicine; ATTEND Internal Medicine
DX: R07.9 Chest pain, unspecified (principal); I10 Essential (primary) hypertension; E11.9 Type 2 diabetes mellitus without complications; I25.10 Atherosclerotic heart disease of native coronary artery without angina pectoris; E03.9 Hypothyroidism, unspecified; G89.4 Chronic pain syndrome; M62.81 Muscle weakness (generalized); M47.812 Spondylosis without myelopathy or radiculopathy, cervical region; M48.00 Spinal stenosis, site unspecified; R79.1 Abnormal coagulation profile; T45.515A Adverse effect of anticoagulants, initial encounter; E66.01 Morbid (severe) obesity due to excess calories; Z68.34 Body mass index [BMI] 34.0-34.9, adult; Z86.718 Personal history of other venous thrombosis and embolism; Z95.828 Presence of other vascular implants and grafts; Z79.01 Long term (current) use of anticoagulants; Z91.19 Patient's noncompliance with other medical treatment and regimen; Z95.5 Presence of coronary angioplasty implant and graft; Z11.59 Encounter for screening for other viral diseases
CPT/HCPCS: G0378; J1650

== ENCOUNTER 2019-12-02 11:42 | Emergency (ER) | payer MEDICARE ==
[~2019-12-02] VITALS: Ht 167.6 cm; Wt 90.9 kg
[~2019-12-02 11:42] MED LIST changes: +WARFARIN5 MG PO
[2019-12-02 12:45] LABS: URINE BILIRUBIN - DIPSTICK NEGATIVE (NEGATIVE); URINE BLOOD DIPSTICK MODERATE (NEGATIVE); URINE COLOR YELLOW; URINE GLUCOSE - DIPSTICK NEGATIVE (NEGATIVE); URINE KETONE TRACE mg/dL (NEGATIVE); URINE NITRITE - DIPSTICK NEGATIVE (Negative); URINE PH 5.5 (4.5-8.0); URINE PROTEIN - DIPSTICK 100 mg/dL (NEG-TRACE); URINE SPECIFIC GRAVITY 1.025; URINE UROBILINOGEN - DIPSTICK 0.2 E.U./dL (0.2)
[2019-12-02 12:46] LABS: URINE LEUK ESTERASE TRACE (NEGATIVE)
[2019-12-02 12:48] LABS: URINE EPITHELIAL CELLS FEW EPI/hpf (0-FEW); URINE WBC 0-2 WBC/hpf (0-5)
[2019-12-02] MEDS ORDERED: DULCOLAX5 MG PO (14:41)
[2019-12-02] MEDS ORDERED: MAGNESIUM296 ML/BTL PO ×2 (14:41)
[2019-12-02] MEDS ORDERED: MIRALAX3350 N1 PO (14:41)
[2019-12-02 14:45] VITALS: BP 184/78
[2019-12-20] MEDS ORDERED: OXYCODONE HCL E20 M1 PO (11:53)
[2020-01-17] MEDS ORDERED: OXYCODONE HCL E20 M1 PO (14:35)
== END 2019-12-02 14:56 | disposition home or self-care (01) ==
LOC: ED 11:42
PROVIDERS: Student in an Organized Health Care Education/Training Program
DX: K59.03 Drug induced constipation (principal); T40.2X5A Adverse effect of other opioids, initial encounter; E11.9 Type 2 diabetes mellitus without complications; I10 Essential (primary) hypertension; E03.9 Hypothyroidism, unspecified; Z86.718 Personal history of other venous thrombosis and embolism; Z95.5 Presence of coronary angioplasty implant and graft

== ENCOUNTER 2019-12-04 09:49 | Observation (INO) | payer MEDICARE ==
[~2019-12-04] VITALS: Ht 167.6 cm; Wt 98.9 kg
[~2019-12-04 09:49] MED LIST changes: +DULCOLAX5 MG PO; +MAGNESIUM296 ML/BTL PO; +MIRALAX3350 N1 PO
[2019-12-04 10:29] LABS: CREATININE 1.1 mg/dL (0.5-1.0); INTERNATIONAL NORMALIZED RATIO 1.1 RATIO (0.7-1.3); PROTHROMBIN TIME 11.1 SECONDS (9.0-12.5)
[2019-12-04 10:33] LABS: ALBUMIN 4.6 g/dL (3.2-5.0); HEMATOCRIT 42.4 % (37.0-47.0); HEMOGLOBIN 12.5 g/dl (12.0-16.0); IMMATURE GRANULOCYTES 0.5 % (0.0-5.0); MEAN CELL VOLUME 87.8 fL CALC (80.0-100.0); MEAN CORPUSCULAR HGB 25.9 pG CALC (26.0-32.0); MEAN CORPUSCULAR HGB CONC 29.5 g/dL CAL (32.0-36.0); NEUT# 6.04 thou/uL (2.00-7.15); POTASSIUM 3.2 mmol/l (3.5-5.1); RED BLOOD COUNT 4.83 mill/uL (4.20-5.60); RED CELL DISTRI WIDTH 15.9 % (11.5-15.5); TOTAL PROTEIN 8.3 g/dL (6.3-8.2)
[2019-12-04] MEDS ORDERED: XARELTO10 MG PO (11:34)
[2019-12-04 12:55] VITALS: BP 162/52
[2019-12-04 13:32] VITALS: BP 155/64
[2019-12-04 15:00] VITALS: BP 147/62
[2019-12-04 19:00] VITALS: BP 101/54
[2019-12-04 23:25] VITALS: BP 138/67
[2019-12-05] VITALS (7 sets, daily range): BP systolic 97–178; BP diastolic 34–83
[2019-12-05 06:32] LABS: HEMATOCRIT 41.4 % (37.0-47.0); HEMOGLOBIN 12.1 g/dl (12.0-16.0); IMMATURE GRANULOCYTES 0.7 % (0.0-5.0); MEAN CELL VOLUME 89.8 fL CALC (80.0-100.0); MEAN CORPUSCULAR HGB 26.2 pG CALC (26.0-32.0); MEAN CORPUSCULAR HGB CONC 29.2 g/dL CAL (32.0-36.0); NEUT# 4.83 thou/uL (2.00-7.15); RED BLOOD COUNT 4.61 mill/uL (4.20-5.60); RED CELL DISTRI WIDTH 15.8 % (11.5-15.5)
[2019-12-05 06:57] LABS: CREATININE 1.1 mg/dL (0.5-1.0)
[2019-12-05 07:00] LABS: POTASSIUM 4.1 mmol/l (3.5-5.1)
[2019-12-06 03:52] VITALS: BP 157/73
[2019-12-06 04:46] VITALS: BP 137/56
[2019-12-06 05:48] LABS: HEMATOCRIT 38.8 % (37.0-47.0); HEMOGLOBIN 11.2 g/dl (12.0-16.0); MEAN CELL VOLUME 89.8 fL CALC (80.0-100.0); MEAN CORPUSCULAR HGB 25.9 pG CALC (26.0-32.0); MEAN CORPUSCULAR HGB CONC 28.9 g/dL CAL (32.0-36.0); RED BLOOD COUNT 4.32 mill/uL (4.20-5.60); RED CELL DISTRI WIDTH 15.6 % (11.5-15.5)
[2019-12-06 06:24] LABS: CREATININE 1.1 mg/dL (0.5-1.0); POTASSIUM 3.3 mmol/l (3.5-5.1)
[2019-12-06 06:58] VITALS: BP 140/65
[2019-12-06] MEDS ORDERED: MEDDOSEPAK PO (09:54)
[2019-12-06 10:30] VITALS: BP 115/37
[2019-12-20] MEDS ORDERED: OXYCODONE HCL E20 M1 PO (11:53)
[2020-01-17] MEDS ORDERED: OXYCODONE HCL E20 M1 PO (14:35)
== END 2019-12-06 12:49 | disposition home health service (06) ==
LOC: ED 09:49 → ED-I 11:16 → ED 11:29 → ED-I 11:30 → MS2 11:30
PROVIDERS: Nurse Practitioner; ADMIT Internal Medicine; ATTEND Internal Medicine
PROC: 3E0234Z Introduction of Serum, Toxoid and Vaccine into Muscle, Percutaneous Approach (ICD-10-PCS; principal; 2019-12-06)
DX: R07.89 Other chest pain (principal); I10 Essential (primary) hypertension; I25.10 Atherosclerotic heart disease of native coronary artery without angina pectoris; E11.9 Type 2 diabetes mellitus without complications; M48.00 Spinal stenosis, site unspecified; F41.9 Anxiety disorder, unspecified; E03.9 Hypothyroidism, unspecified; M19.90 Unspecified osteoarthritis, unspecified site; M79.7 Fibromyalgia; F32.9 Major depressive disorder, single episode, unspecified; Z86.718 Personal history of other venous thrombosis and embolism; Z79.01 Long term (current) use of anticoagulants; Z79.891 Long term (current) use of opiate analgesic; Z95.5 Presence of coronary angioplasty implant and graft; Z23 Encounter for immunization; Z20.828 Contact with and (suspected) exposure to other viral communicable diseases
CPT/HCPCS: G0009; G0378

== ENCOUNTER 2020-04-09 12:48 | Emergency (ER) | payer OTHER, MEDICARE ==
[~2020-04-09] VITALS: Ht 167.6 cm; Wt 95.0 kg
[~2020-04-09 12:48] MED LIST changes: +MEDDOSEPAK PO; +XARELTO10 MG PO
[2020-04-09 13:52] LABS: HEMATOCRIT 41.6 % (37.0-47.0); HEMOGLOBIN 12.5 g/dl (12.0-16.0); IMMATURE GRANULOCYTES 1.2 % (0.0-5.0); MEAN CELL VOLUME 89.1 fL CALC (80.0-100.0); MEAN CORPUSCULAR HGB 26.8 pG CALC (26.0-32.0); NEUT# 18.15 thou/uL (2.00-7.15); RED BLOOD COUNT 4.67 mill/uL (4.20-5.60); RED CELL DISTRI WIDTH 15.2 % (11.5-15.5)
[2020-04-09 13:58] VITALS: BP 103/53
[2020-04-09 14:07] LABS: INTERNATIONAL NORMALIZED RATIO 1.1 RATIO (0.7-1.3)
[2020-04-09 14:08] LABS: ALBUMIN 3.9 g/dL (3.2-5.0); ALKALINE PHOSPHATASE 93 u/l (38-126); ANION GAP 11 (6-22 (CALC)); BILIRUBIN, TOTAL 0.7 mg/dL (0.0-1.4); BUN 20 mg/dL (8-23); BUN/CREATININE RATIO 20 (12-20 (CALC)); CARBON DIOXIDE 26 mmol/l (22-30); CHLORIDE 107 mmol/l (95-108); GFR 55 ML/MIN (>=60 (CALC)); GFR FOR AFR.AMER. > 60 ML/MIN (>=60 (CALC)); POTASSIUM 4.6 mmol/l (3.5-5.1); SODIUM 140 mmol/l (137-146); TOTAL PROTEIN 7.1 g/dL (6.3-8.2)
[2020-04-09 14:10] LABS: SGOT/AST 35 u/l (9-36)
== END 2020-04-09 13:58 | DRG 605 ==
LOC: ED 12:48
PROVIDERS: Family Medicine
DX: S91.311A Laceration without foreign body, right foot, initial encounter (principal); M54.2 Cervicalgia; M25.552 Pain in left hip; M25.551 Pain in right hip; S60.512A Abrasion of left hand, initial encounter; E11.9 Type 2 diabetes mellitus without complications; I10 Essential (primary) hypertension; E03.9 Hypothyroidism, unspecified; F41.9 Anxiety disorder, unspecified; F32.9 Major depressive disorder, single episode, unspecified; V44.5XXA Car driver injured in collision with heavy transport vehicle or bus in traffic accident, initial encounter; Z86.718 Personal history of other venous thrombosis and embolism; Z79.01 Long term (current) use of anticoagulants; Z95.5 Presence of coronary angioplasty implant and graft

== ENCOUNTER 2020-07-17 14:12 | Emergency (ER) | payer MEDICARE ==
[~2020-07-17] VITALS: Ht 167.6 cm; Wt 90.9 kg
[~2020-07-17 14:12] MED LIST changes: +OXYCONTIN30 M1 PO
[2020-07-17] MEDS ORDERED: LASIX 40 MG TAB40 MG PO (16:24)
[2020-07-17 16:41] VITALS: BP 119/65
== END 2020-07-17 16:41 | disposition home or self-care (01) ==
LOC: ED 14:12
PROC: 3E1B78Z Irrigation of Ear using Irrigating Substance, Via Natural or Artificial Opening (ICD-10-PCS; principal; 2020-07-17)
DX: H61.22 Impacted cerumen, left ear (principal); I10 Essential (primary) hypertension; E11.9 Type 2 diabetes mellitus without complications; E03.9 Hypothyroidism, unspecified; F41.9 Anxiety disorder, unspecified; F32.9 Major depressive disorder, single episode, unspecified; Z86.718 Personal history of other venous thrombosis and embolism; Z95.5 Presence of coronary angioplasty implant and graft

== ENCOUNTER 2020-08-06 12:04 | Observation (INO) | payer MEDICARE ==
[~2020-08-06] VITALS: Ht 167.6 cm; Wt 93.0 kg
[~2020-08-06 12:04] MED LIST changes: +OXYCODONE HCL E30 MG PO; +XTAMPZA ER36 MG PO
--- NOTE | 2020-08-06 12:05 | NUR ---
TRIAGED TO ROOM 12
[2020-08-06 13:53] LABS: HEMATOCRIT 36.8 % (37.0-47.0); IMMATURE GRANULOCYTES 0.3 % (0.0-5.0); MEAN CELL VOLUME 87.2 fL CALC (80.0-100.0); MEAN CORPUSCULAR HGB 24.9 pG CALC (26.0-32.0); MEAN CORPUSCULAR HGB CONC 28.5 g/dL CAL (32.0-36.0); NEUT# 4.71 thou/uL (2.00-7.15); RED BLOOD COUNT 4.22 mill/uL (4.20-5.60); RED CELL DISTRI WIDTH 16.2 % (11.5-15.5)
[2020-08-06 13:54] LABS: HEMOGLOBIN 10.5 g/dl (12.0-16.0)
[2020-08-06 14:03] LABS: URINE BILIRUBIN - DIPSTICK NEGATIVE (NEGATIVE); URINE BLOOD DIPSTICK TRACE-LYSED (NEGATIVE); URINE COLOR YELLOW; URINE GLUCOSE - DIPSTICK NEGATIVE (NEGATIVE); URINE KETONE NEGATIVE (NEGATIVE); URINE PH 5.5 (4.5-8.0); URINE PROTEIN - DIPSTICK TRACE mg/dL (NEG-TRACE); URINE SPECIFIC GRAVITY 1.025; URINE UROBILINOGEN - DIPSTICK 0.2 E.U./dL (0.2)
[2020-08-06 14:05] LABS: URINE LEUK ESTERASE SMALL (NEGATIVE); URINE NITRITE - DIPSTICK NEGATIVE (Negative)
[2020-08-06 14:14] LABS: BILIRUBIN, TOTAL 0.6 mg/dL (0.0-1.4); CREATININE 1.4 mg/dL (0.5-1.0); TOTAL PROTEIN 7.5 g/dL (6.3-8.2)
[2020-08-06 14:15] LABS: URINE SQUAMOUS EPITHELIAL CELL FEW EPI/hpf (0-FEW)
--- NOTE | 2020-08-06 17:20 | NUR ---
REPORT RECEIVED FROM ERICA MAURICIO
--- NOTE | 2020-08-06 17:26 | NUR ---
PT ARRIVED TO MED/SURG ROOM 269 IN STABLE CONDITION VIA STRETCHER ACCOMPANIED BY ERICA MAURICIO;PT AMBULATED WITH X2 PERSON ASSIST TO BEDSIDE;WT AND VS OBTAINED BY JEROME HALLMAN;PT A&0 X3 WITH FORGETFULNESS NOTED AT TIMES,ORIENTED TO ROOM AND CALL LIGHT SYSTEM;TELE MONITORING IN PLACE;ACCUCHECK 98, NO COVERAGE NEEDED;FALL AND ALLERGY BAND APPLIED TO RIGHT ARM;ALL SAFETY PRECAUTIONS REINFORCED WITH BED IN THE LOWEST POSITION AND BED ALARM ON FOR SAFETY;CALL LIGHT IN REACH;WILL CONTINUE TO MONITOR
[2020-08-06 17:32] VITALS: BP 170/81
--- NOTE | 2020-08-06 17:45 | NUR ---
PT FOUND RESTING IN BED IN SEMI-FOWLERS POSTIION;PT IS ALERT AND ORIENTED TO NAME AND PLACE;PT DOES SHOW SOME CONFUSION TO WHY SHE IS HERE AT THE HOSPITAL AT THIS TIME;PT WAS A POOR HISTORIAN ON PARTS OF THE MEDICAL HX;PT APPEARED SOMEWHAT DROWSY AND HER SPEECH WAS OCCASIONALLY SOMEWHAT SLURRED;HEART SOUNDS ARE REGULAR IN RATE AND RHYTHM;LUNG SOUNDS ARE CLEAR;RESPIRATIONS ARE EVEN AND UNLABORED ON O2 @2L VIA NC;PT IS NOT CURRENTLY HOME DEPENDENT ON O2 AT THIS TIME; TELE IS IN PLACE;#20G IV IN LW IS RUNNING NS@75 ML/HR;IV SITE IS FREE OF COMPLICATIONS;PT HAS 3+ EDEMA TO LOWER LEGS AND FEET BILATERALLY;PT ALSO HAS SOME REDDENING AND WARMTH TO LOWER LEGS BILATERALLY;PT HAS A SKIN TEAR ON RT FOREARM THAT HAS DRESSING IN PLACE THAT IS CDI;PT ALSO HAS A SMALL BLISTER ON HER RT LOWER LEG THAT IS WEEPING A SCANT AMOUNT OF FLUID;SAFETY PRECAUTIONS IN PLACE;BED ALARM ON;CALL LIGHT WITHIN REACH;BED IN LOWEST POSITION;WILL CONTINUE TO MONITOR.
[2020-08-06 19:00] VITALS: BP 127/51
--- NOTE | 2020-08-06 19:57 | NUR ---
PHYSICAL ASSESMENT COMPLETE. PT CURRENTLY DENIES PAIN OR DISCOMFORT. SCHEDULED MEDICATIONS AND PRN MEDICATION ADMINISTERED, SEE E-MAR. PT DENIES ANY NEEDS AT THIS TIME. PLAN OF CARE REVIEWED, PT DENIES QUESTIONS, VERBALIZES UNDERSTANDING. ITEMS WITHIN REACH, BED LOCKED IN LOW POSITION W/ BEDRAILS UP X2. CALL KIRKLAND WITHIN REACH, AGREES TO CALL PRN.
[2020-08-07] VITALS (8 sets, daily range): BP systolic 117–173; BP diastolic 49–80
--- NOTE | 2020-08-07 00:08 | NUR ---
PT LAYING IN BED WITH EYES CLOSED, APPEARS TO BE SLEEPING, APPEARS COMFORTABLE AND IN NO DISTRESS. RESPIRATIONS REGULAR AND UNLABORED. ITEMS REMAIN WITHIN REACH, CALL KIRKLAND REMAINS WITHIN REACH. BED REMAINS LOCKED AND IN LOW POSITION WITH BEDRAILS UP X2. WILL CONTINUE TO MONITOR.
--- NOTE | 2020-08-07 04:00 | NUR ---
PT RESTING IN BED, NO SIGNS OF DISTRESS NOTED, RESP EVEN AND UNLABORED. PT VOICES NO NEEDS OR COMPLAINTS AT THIS TIME. CALL LIGHT IN REACH, CONTINUE TO MONITOR.
[2020-08-07 05:23] LABS: HEMATOCRIT 37.5 % (37.0-47.0); HEMOGLOBIN 10.7 g/dl (12.0-16.0); MEAN CELL VOLUME 86.8 fL CALC (80.0-100.0); MEAN CORPUSCULAR HGB 24.8 pG CALC (26.0-32.0); MEAN CORPUSCULAR HGB CONC 28.5 g/dL CAL (32.0-36.0); RED BLOOD COUNT 4.32 mill/uL (4.20-5.60); RED CELL DISTRI WIDTH 16.2 % (11.5-15.5)
[2020-08-07 05:50] LABS: CREATININE 1.1 mg/dL (0.5-1.0); MAGNESIUM 1.9 mg/dL (1.6-2.3); POTASSIUM 3.7 mmol/l (3.5-5.1)
--- NOTE | 2020-08-07 08:00 | NUR ---
PT WAS FOUND RESTING IN BED;PT IS A&O X3;VS AND ASSESSMENT WERE COMPLETED;PT HAS NO REPORTS OF PAIN AT THIS TIME;HEART SOUNDS ARE REGULAR IN RATE AND RHYTHM;LUNG SOUNDS ARE CLEAR IN ALL LAYNE;RESPIRATIONS ARE EVEN AND UNLABORED ON RA;TELE IN PLACE;#20G IV IN RAC IS SL, PATENT AND FREE OF COMPLICATIONS;PT HAS OPEN DIABETIC WOUNDS PRESENT ON HIS TOES BILATERALLY, MIDDLE RT TOE, AND LEFT 2ND AND 4TH TOES;NO DRESSING IN PLACE AT THIS TIME;SAFETY PRECAUTIONS IN PLACE;CALL LIGHT WITHIN REACH;BED IN LOWEST POSITION;WILL CONTINUE TO MONITOR.
--- NOTE | 2020-08-07 08:00 | NUR ---
PT WAS FOUND RESTING IN BED;PT IS ALERT, BUT DOES SUFFER SOME CONFUSION;SHE IS ORIENTED TO PERSON, AND PLACE OCCASIONALLY;SHE STATES THAT SHE HEARS HER SISTER'S VOICE HERE;SHE DOESN'T UNDERSTAND WHY SHE IS HERE AND ISN'T GETTING HER MRI SHE NEEDS FOR SURGERY;SHE DOES REORIENT OCCASIONALLY;VS AND ASSESSMENT WERE COMPLETED;PT HAS NO REPORTS OF PAIN AT THIS TIME;HEART SOUNDS ARE REGULAR IN RATE AND RHYTHM;LUNG SOUNDS ARE CLEAR;RESPIRATIONS ARE EVEN AND UNLABORED ON O2 @2L VIA NC;PT HAS 3+PITTING EDEMA PRESENT ON HER LEGS AND FEET BILATERLLY;#20G IV IN LW IS RUNNING NS @75 ML/HR;IV SITE IS FREE OF COMPLICATIONS AT THIS TIME;TELE IS IN PLACE;SAFETY PRECAUTIONS IN PLACE;BED ALARM ON;CALL LIGHT WITHIN REACH;BED IN LOWEST POSITION;WILL CONTINUE TO MONITOR.
--- NOTE | 2020-08-07 08:40 | NUR ---
MARQUISE,PHYSICAL THERAPY AT BEDSIDE
--- NOTE | 2020-08-07 09:28 | NUR ---
OT AT BEDSIDE
[2020-08-07] MEDS ORDERED: XARELTO20 MG PO (09:42)
[2020-08-07] MEDS ORDERED: XTAMPZA ER36 MG PO (09:42)
[2020-08-07] MEDS ORDERED: OXYCONTIN30 M1 PO (09:44)
[2020-08-07] MEDS ORDERED: ALPRAZOLAM0.5 M2 PO (09:44)
[2020-08-07] MEDS ORDERED: [UNRECOGNIZED DRUG - SUPPLY] (09:45)
[2020-08-07] MEDS ORDERED: ONE TOUCH ULTRA LANC (09:45)
[2020-08-07] MEDS ORDERED: ESCITALOPRAM OX20 MG PO (09:45)
[2020-08-07] MEDS ORDERED: GABAPENTIN400 M2 PO (09:45)
[2020-08-07] MEDS ORDERED: ZOLPIDEM TARTRA10 MG PO (09:45)
[2020-08-07] MEDS ORDERED: LASIX 40 MG TAB40 MG PO (09:46)
[2020-08-07] MEDS ORDERED: LANTUS SOL100 UNIT/M (09:46)
[2020-08-07] MEDS ORDERED: LEVOTHYROXIN50 MC1 PO (09:46)
--- NOTE | 2020-08-07 09:50 | NUR ---
AT BEDSIDE DISCUSSING POC.
--- NOTE | 2020-08-07 12:00 | NUR ---
PT WAS FOUND RESTING IN BED;PT HAS NO REPORTS OF PAIN AT THIS TIME;TELE IS IN PLACE;#20G IV IN LFA IS RUNNING NS@75ML/HR;O2 @2L VIA NC IS IN PLACE;SAFETY PRECAUTIONS IN PLACE;BED ALARM IS ON;CALL LIGHT WITHIN REACH;BED IN LOWEST POSITION;WILL CONTINUE TO MONITOR.
--- NOTE | 2020-08-07 12:00 | NUR ---
CAITLYN ANRP NOTIFIED OF ELEVATED BP 170/80,PT ASYMPTOMATIC AT THIS TIME. AWAITING NEW ORDERS.
--- NOTE | 2020-08-07 13:15 | NUR ---
BP RE-CHECK 142/65 HR 75
--- NOTE | 2020-08-07 16:00 | NUR ---
PT WAS FOUND RESTING IN BED;PT HAS NO REPORTS OF PAIN AT THIS TIME;TELE IS IN PLACE;#20G IV IN LFA IS RUNNING NS@75 ML/HR;IV SITE IS FREE OF COMPLICATIONS AT THIS TIME;O2 @ 2L IS IN PLACE;SAFETY PRECAUTIONS IN PLACE;BED ALARM ON;CALL LIGHT WITHIN REACH;BED IN LOWEST POSITION;WILL CONTINUE TO MONITOR.
--- NOTE | 2020-08-07 17:38 | NUR ---
BP RE-CHECK 162/59
--- NOTE | 2020-08-07 20:20 | NUR ---
PT RESTING COMFORTABLY AT THIS TIME. NO COMPLAINTS VOICED. BREATHING EVEN AND UNLABORED. TELE CONTINUES- SR 66. CONFUSION CONTINUES, PT BECOMES EASILY CONFUSED DURING CONVERSATION. WILL MONITOR.
[2020-08-08] VITALS: BP 135/76
--- NOTE | 2020-08-08 00:20 | NUR ---
PT RESING QUIETLY IN BED, NO COMPLAINTS VOICED AT THIS TIME. BED IN LOWEST POSITION, CALL LIGHT WITHIN REACH. WILL MONITOR.
[2020-08-08 00:50] VITALS: BP 161/62
[2020-08-08 03:45] VITALS: BP 179/87
--- NOTE | 2020-08-08 04:15 | NUR ---
ASSIGNED CRIMINAL JUSTICE INSTRUCTOR ADVISED THAT PT B/P WAS SLIGHTLY ELEVATED. PT DOES NOT HAVE ANY PRN MEDICATIONS FOR HTN. WHEN PT QUESTIONED REGARDING PAIN LEVEL, PT REPORTED A PAIN LEVEL OF 8 IN HER BACK. MEDICATED PT WITH ROXICODONE TO RELEIVE PT PAIN. WILL MONITOR
--- NOTE | 2020-08-08 05:34 | NUR ---
B/P RECHECKED, 159/73. B/P IMPROVES ONCE MEDICATED FOR PAIN. WILL MONITOR
[2020-08-08 05:52] LABS: HEMATOCRIT 36.7 % (37.0-47.0); HEMOGLOBIN 10.5 g/dl (12.0-16.0); MEAN CORPUSCULAR HGB 24.9 pG CALC (26.0-32.0); MEAN CORPUSCULAR HGB CONC 28.6 g/dL CAL (32.0-36.0); RED BLOOD COUNT 4.22 mill/uL (4.20-5.60); RED CELL DISTRI WIDTH 16.1 % (11.5-15.5)
[2020-08-08 06:10] LABS: ANION GAP 10 (6-22 (CALC)); BUN 14 mg/dL (8-23); BUN/CREATININE RATIO 16 (12-20 (CALC)); CARBON DIOXIDE 29 mmol/l (22-30); CHLORIDE 102 mmol/l (95-108); CREATININE 0.9 mg/dL (0.5-1.0); GFR > 60 ML/MIN (>=60 (CALC)); GFR FOR AFR.AMER. > 60 ML/MIN (>=60 (CALC)); MAGNESIUM 1.8 mg/dL (1.6-2.3); SODIUM 138 mmol/l (137-146)
--- NOTE | 2020-08-08 07:10 | NUR ---
PATIENT LAYING IN BED AT THIS TIME. PATIENT DENEIS ANY PAIN AND OR NEEDS. ASSISTANT SPA DIRECTOR DONE LUNG SOUNDS REMAIN CLEAR. PATIENT DOES EXHIBIT BILATERAL LEG SWELLING 2+ AND MANUELA. PATIENT ALERT X 2 SIDERAILS ARE UP X 2 CALL LIGHT AND PERSONAL ITEMS WITHIN REACH.
[2020-08-08 07:45] VITALS: BP 139/72
--- NOTE | 2020-08-08 10:13 | NUR ---
S: LEONCIO PEARCE is a 69 F who presents with altered mental status/weakness. She has a history of DM, cardiac stent, HTN, fibromyalgia, spinal stenosis, chronic back pain, anxiety, depression, hypothyroidism, DVT, fracture of left arm, arthritis. All medications in patient's chart were reviewed. O: VS: BP 139/72 mmHg, P 60 beats per minute, RR 20 breathes per minute, T 96.9 F W 93 kg, HT 66 in, Scr= 1.0 mg/dL, CrCl= 75.8 ml/min A: Urine cultures show growth of methicillin resistant Staphylococcus aureus sensitive to vancomycin P: Patient is on azithromycin 500 mg IV Q24H. Vancomycin ordered for pharmacy to dose. Start Vancomycin 1250 mg IV Q12H. Vancomycin trough is drawn before the 4th dose on 08/09/20 @ 2130. Vancomycin goal trough is between 10-15 mcg/ml. Pharmacy will follow and or advise on antibiotics use as needed.
[2020-08-08 10:35] VITALS: BP 146/63
[2020-08-08] MEDS ORDERED: DOXYCYCL HYC100 MG PO (11:02)
--- NOTE | 2020-08-08 12:00 | NUR ---
PATIENT D/C AT THIS TIME. TELE REMOVED ED NOTIFIED. PATIENT VERBALIZES UNDERSTANDING OF D/C INSTRUCTIONS. PATIENT TAKEN HOME VIA CAB.
--- NOTE | 2020-08-08 13:15 | NUR ---
Discharge instructions given. Patient verbalizes understanding of same. Discharged in stable condition via Taxi to Home with *Other. All belongings sent with pt.
[2020-08-21] MEDS ORDERED: OXYCONTIN30 M1 PO (11:04)
[2020-09-18] MEDS ORDERED: OXYCONTIN30 M1 PO (14:44)
[2020-10-16] MEDS ORDERED: OXYCONTIN30 M1 PO (14:08)
[2020-11-13] MEDS ORDERED: OXYCONTIN30 M1 PO (12:50)
[2020-12-27] MEDS ORDERED: OXYCONTIN30 M1 PO (12:22)
== END 2020-08-08 13:15 ==
LOC: ED 12:04 → ED-I 14:55 → ED 16:12 → MS2 16:13
PROVIDERS: Emergency Medicine; Nurse Practitioner; ADMIT Internal Medicine; ATTEND Internal Medicine
DX: G93.41 Metabolic encephalopathy (principal); J18.9 Pneumonia, unspecified organism; N39.0 Urinary tract infection, site not specified; B95.62 Methicillin resistant Staphylococcus aureus infection as the cause of diseases classified elsewhere; I25.10 Atherosclerotic heart disease of native coronary artery without angina pectoris; E11.9 Type 2 diabetes mellitus without complications; I10 Essential (primary) hypertension; E78.5 Hyperlipidemia, unspecified; M79.7 Fibromyalgia; M48.00 Spinal stenosis, site unspecified; E03.9 Hypothyroidism, unspecified; F41.9 Anxiety disorder, unspecified; F32.9 Major depressive disorder, single episode, unspecified; Z79.891 Long term (current) use of opiate analgesic; Z98.1 Arthrodesis status; Z86.718 Personal history of other venous thrombosis and embolism; Z95.5 Presence of coronary angioplasty implant and graft; Z20.822 Contact with and (suspected) exposure to COVID-19
CPT/HCPCS: G0378; J3370

== ENCOUNTER 2020-10-08 19:54 | Emergency (ER) | payer MEDICARE ==
[~2020-10-08] VITALS: Ht 167.6 cm; Wt 200.0 kg
[~2020-10-08 19:54] MED LIST changes: +DOXYCYCL HYC100 MG PO; +LANTUS SOL100 UNIT/M; +ONE TOUCH ULTRA LANC; +XARELTO20 MG PO; +[UNRECOGNIZED DRUG - SUPPLY]
[2020-10-08 21:01] LABS: HEMATOCRIT 43.7 % (37.0-47.0); HEMOGLOBIN 12.5 g/dl (12.0-16.0); IMMATURE GRANULOCYTES 0.3 % (0.0-5.0); MEAN CELL VOLUME 83.6 fL CALC (80.0-100.0); MEAN CORPUSCULAR HGB 23.9 pG CALC (26.0-32.0); MEAN CORPUSCULAR HGB CONC 28.6 g/dL CAL (32.0-36.0); NEUT# 4.05 thou/uL (2.00-7.15); RED BLOOD COUNT 5.23 mill/uL (4.20-5.60); RED CELL DISTRI WIDTH 17.5 % (11.5-15.5)
[2020-10-08 21:20] LABS: ALBUMIN 3.8 g/dL (3.2-5.0); ALKALINE PHOSPHATASE 106 u/l (38-126); ANION GAP 12 (6-22 (CALC)); BILIRUBIN, TOTAL 0.5 mg/dL (0.0-1.4); BUN 13 mg/dL (8-23); BUN/CREATININE RATIO 15 (12-20 (CALC)); CARBON DIOXIDE 26 mmol/l (22-30); CHLORIDE 104 mmol/l (95-108); CREATININE 0.9 mg/dL (0.5-1.0); GFR > 60 ML/MIN (>=60 (CALC)); GFR FOR AFR.AMER. > 60 ML/MIN (>=60 (CALC)); POTASSIUM 4.2 mmol/l (3.5-5.1); SGOT/AST 21 u/l (9-36); SODIUM 138 mmol/l (137-146); TOTAL PROTEIN 7.3 g/dL (6.3-8.2)
[2020-10-08 21:32] LABS: MYOGLOBIN 43 ng/mL (0 - 62)
[2020-10-09 06:27] VITALS: BP 182/64
[2020-10-16] MEDS ORDERED: OXYCONTIN30 M1 PO (14:08)
[2020-11-13] MEDS ORDERED: OXYCONTIN30 M1 PO (12:50)
[2020-12-27] MEDS ORDERED: OXYCONTIN30 M1 PO (12:22)
== END 2020-10-09 09:18 | disposition home or self-care (01) ==
LOC: ED 19:54
PROVIDERS: Emergency Medicine
DX: K08.89 Other specified disorders of teeth and supporting structures (principal); K08.409 Partial loss of teeth, unspecified cause, unspecified class; E11.9 Type 2 diabetes mellitus without complications; I10 Essential (primary) hypertension; F32.9 Major depressive disorder, single episode, unspecified; F41.9 Anxiety disorder, unspecified; E03.9 Hypothyroidism, unspecified; Z86.718 Personal history of other venous thrombosis and embolism; Z95.5 Presence of coronary angioplasty implant and graft; Z79.4 Long term (current) use of insulin

== ENCOUNTER 2020-10-20 16:39 | Observation (INO) | payer MEDICARE ==
[~2020-10-20] VITALS: Ht 167.6 cm; Wt 93.0 kg
--- NOTE | 2020-10-20 16:39 | NUR ---
RECEIVED TO ROOM VIA EMS
--- NOTE | 2020-10-20 17:00 | NUR ---
PATIENT COVERED WITH OLD STOOL, BED BATH GIVEN, GOWN ON.
--- NOTE | 2020-10-20 17:15 | NUR ---
STRAIGHT CATHED FOR URINE. STERILE TECHNIQUE THROUGHOUT. TOLERATED WELL
[2020-10-20 18:02] LABS: HEMOGLOBIN 13.7 g/dl (12.0-16.0); IMMATURE GRANULOCYTES 0.2 % (0.0-5.0); MEAN CELL VOLUME 83.2 fL CALC (80.0-100.0); MEAN CORPUSCULAR HGB 24.2 pG CALC (26.0-32.0); MEAN CORPUSCULAR HGB CONC 29.1 g/dL CAL (32.0-36.0); NEUT# 6.02 thou/uL (2.00-7.15); RED BLOOD COUNT 5.65 mill/uL (4.20-5.60); RED CELL DISTRI WIDTH 18.8 % (11.5-15.5)
[2020-10-20 18:05] LABS: URINE BILIRUBIN - DIPSTICK NEGATIVE (NEGATIVE); URINE BLOOD DIPSTICK SMALL (NEGATIVE); URINE COLOR YELLOW; URINE GLUCOSE - DIPSTICK NEGATIVE (NEGATIVE); URINE KETONE 15 mg/dL (NEGATIVE); URINE LEUK ESTERASE NEGATIVE (NEGATIVE); URINE PH 6.5 (4.5-8.0); URINE PROTEIN - DIPSTICK TRACE mg/dL (NEG-TRACE); URINE SPECIFIC GRAVITY 1.015
[2020-10-20 18:06] LABS: URINE NITRITE - DIPSTICK NEGATIVE (Negative)
[2020-10-20 18:07] LABS: URINE SQUAMOUS EPITHELIAL CELL FEW EPI/hpf (0-FEW)
[2020-10-20 18:19] LABS: ALKALINE PHOSPHATASE 110 u/l (38-126); AMYLASE 51 u/l (30-110); ANION GAP 16 (6-22 (CALC)); BILIRUBIN, TOTAL 0.7 mg/dL (0.0-1.4); BUN 17 mg/dL (8-23); BUN/CREATININE RATIO 21 (12-20 (CALC)); CARBON DIOXIDE 24 mmol/l (22-30); CHLORIDE 104 mmol/l (95-108); CREATININE 0.8 mg/dL (0.5-1.0); ETHYL ALCOHOL 0 mg/dl (0-30); GFR > 60 ML/MIN (>=60 (CALC)); GFR FOR AFR.AMER. > 60 ML/MIN (>=60 (CALC)); LIPASE 30 u/l (23-300); MAGNESIUM 1.9 mg/dL (1.6-2.3); POTASSIUM 4.8 mmol/l (3.5-5.1); SGOT/AST 19 u/l (9-36); SODIUM 139 mmol/l (137-146); TOTAL PROTEIN 7.7 g/dL (6.3-8.2)
[2020-10-20 18:20] LABS: D-DIMER 3.98 mg/L (0.19-0.60)
[2020-10-20 18:25] LABS: ACT PARTIAL THROMBO TIME 21.9 SECONDS (20.0-32.5); PROTHROMBIN TIME 10.2 SECONDS (9.0-12.5)
[2020-10-20 18:48] LABS: TSH, 3RD GENERATION 3.21 uIU/mL (0.47 - 4.68)
--- NOTE | 2020-10-20 19:09 | NUR ---
RELIGIOUS ASSISTANT IN ROOM PERFORMING ULTRA SOUND.
--- NOTE | 2020-10-20 20:09 | NUR ---
PT. CONT. TO ASK FOR OXYCONTIN STATING, " THATS THE ONLY REASON I CAME HERE I AM OUT OF MY PAIN MEDICATION."
--- NOTE | 2020-10-20 21:09 | NUR ---
RESTING QUIETLY ON STRETCHER. NO C/O AT THIS TIME.
--- NOTE | 2020-10-20 21:55 | NUR ---
PT. STATES SHE ONLY KNOWS HER PAIN MEDS NOTHING ELSE.
--- NOTE | 2020-10-20 22:43 | NUR ---
PT. RESTING QUIETLY EYES CLOSED, NO C/O AT THIS TIME. V/S STABLE. AWAKENS EASILY.
--- NOTE | 2020-10-20 23:43 | NUR ---
Admission Note Report Given to: RAMSES MALDONADO Transported by: Wheelchair X Stretcher Transported with: X Nurse Transporter X Patent IV X O2 X Decorative Cutting Machine Tender Location: ICU X MS2
--- NOTE | 2020-10-21 00:09 | NUR ---
PT. TAKEN TO [facility] VIA STRETCHER, NO C.O.
[2020-10-21 00:15] VITALS: BP 166/89
--- NOTE | 2020-10-21 00:15 | NUR ---
PT RECEIVED FROM ED TO ROOM 272. ARRIVES VIA STRETCHER. PT AMBULATORY TO BED. GAIT UNSTEADY. ORIENTED TO UNIT, ROOM, CALL KIRKLAND, LIGHTS, TV. ICE WATER PROVIDED. CALL KIRKLAND WITHIN REACH. AGREES TO CALL PRN.
--- NOTE | 2020-10-21 01:22 | NUR ---
PHYSICAL ASSESMENT COMPLETE. SCHEDULED MEDICATIONS AND PRN MEDICATION ADMINISTERED, SEE E-MAR. PT DENIES ANY NEEDS AT THIS TIME. PLAN OF CARE REVIEWED, PT DENIES QUESTIONS, VERBALIZES UNDERSTANDING. ITEMS WITHIN REACH, BED LOCKED IN LOW POSITION W/ BEDRAILS UP X2. BED ALARM ACTIVATED CALL KIRKLAND WITHIN REACH, AGREES TO CALL PRN.
[2020-10-21 04:00] VITALS: BP 162/76
--- NOTE | 2020-10-21 04:00 | NUR ---
PT RESTING IN BED, NO SIGNS OF DISTRESS NOTED, RESP EVEN AND UNLABORED. PT VOICES NO NEEDS OR COMPLAINTS AT THIS TIME. CALL LIGHT IN REACH, CONTINUE TO MONITOR.
--- NOTE | 2020-10-21 08:00 | NUR ---
SHIFT CHANGE REPORT, PT AWAKE ALERT AND ORIENTED LYING IN SUPINE POSITION, C/O BACK PAIN @ 10/10 AND MOANING AND GROANING, NO ANALGESIC ORDERED AT THIS TIME, DIRECTOR LEARNING NOTIFIED OF COMPLAIN AND SAID WOULD ADDRESS CONDITION. PT INFORMED MEDICAL TEAM WILL BE ROUNDING THIS AM AND WOULD ADDRESS ISSUE,SHE CURSED IN A LOW VOICE USING THE "F" WORD AND WAS INFORMED NURSE IS NOT IGNORING HER COMPLAINS BUT COULDNT DO ANYTHING WITHOUT THE MD'S ORDER. IVF INFUSING, TELE MONITOR IN PLACE, CALL KIRKLAND IN REACH AND BED LOCKED IN LOWEST POSITION, WILL CONTINUE TO MONITOR AND ADDRESS NEEDS.
[2020-10-21 08:17] VITALS: BP 183/73
[2020-10-21] MEDS ORDERED: XANAX0.5 MG PO (09:58)
[2020-10-21] MEDS ORDERED: LEXAPRO20 MG PO (09:58)
[2020-10-21] MEDS ORDERED: ZOLPIDEM10 MG PO (09:59)
[2020-10-21] MEDS ORDERED: GABAPENTIN400 M2 PO (09:59)
[2020-10-21] MEDS ORDERED: XARELTO20 MG PO (10:00)
--- NOTE | 2020-10-21 13:20 | NUR ---
VERNELL TO SUCCESSFULLY PLACE # 20 IV CATHETER IN AC FOR CHEST CTA, DR MOONEY NOTIFIED, ORDERED VQ SCAN.
[2020-10-21 14:50] VITALS: BP 138/72
--- NOTE | 2020-10-21 15:50 | NUR ---
RESTING COMFORTABLY IN BED AT THIS TIME, PAIN CONCERNS ADDRESSED AND PT FEELS MUCH BETTER, WILL CONTINUE TO MONITOR.
[2020-10-21 19:19] VITALS: BP 110/58
[2020-10-22] VITALS (7 sets, daily range): BP systolic 116–183; BP diastolic 52–66
[2020-10-22 06:13] LABS: MEAN CORPUSCULAR HGB CONC 28.7 g/dL CAL (32.0-36.0); RED BLOOD COUNT 4.32 mill/uL (4.20-5.60); RED CELL DISTRI WIDTH 17.8 % (11.5-15.5)
[2020-10-22 06:20] LABS: HEMATOCRIT 37.6 % (37.0-47.0); HEMOGLOBIN 10.8 g/dl (12.0-16.0)
[2020-10-22 06:33] LABS: ANION GAP 8 (6-22 (CALC)); BUN 25 mg/dL (8-23); BUN/CREATININE RATIO 29 (12-20 (CALC)); CARBON DIOXIDE 25 mmol/l (22-30); CHLORIDE 108 mmol/l (95-108); CREATININE 0.9 mg/dL (0.5-1.0); GFR > 60 ML/MIN (>=60 (CALC)); GFR FOR AFR.AMER. > 60 ML/MIN (>=60 (CALC)); POTASSIUM 3.9 mmol/l (3.5-5.1); SODIUM 136 mmol/l (137-146)
--- NOTE | 2020-10-22 08:10 | NUR ---
ASSESSMENT IS COMPLETED: IV SITE IS FREE FROM REDNESS OR EDEMA. HR IS REG,PULSES ARE STRONG X4,ABD IS SOFT WITH ACTIVE BS. BREATH SOUNDS ARE CLEAR, BILATERALLY.TELE MONITOR IN PLACE.
--- NOTE | 2020-10-22 11:36 | NUR ---
PT TRANSPORTED TO HAVE A LUNG V Q SCAN. VIA WC WITH STAFF.
--- NOTE | 2020-10-22 11:42 | NUR ---
PT IS RELAXING IN BED WITH NO DISTRESS NOTED. IV SITE IS FREE FROM REDNESS OR EDEMA.
--- NOTE | 2020-10-22 12:04 | NUR ---
PT RETURNED FROM [facility] WITH STAFF.
--- NOTE | 2020-10-22 16:00 | NUR ---
PT IS RELAXING IN BED WITH EYES CLOSED. IV SITE IS FREE FROM REDNESS OR EDEMA.
--- NOTE | 2020-10-22 18:07 | NUR ---
PT WANTED TO SPEAK WITH THE DR ABOUT WHAT WAS GOING ON. EXPLAINED THAT NO RESULTS WERE GIVEN.
--- NOTE | 2020-10-22 18:25 | NUR ---
INFORMED PT OF BEING DISCHARGED. WILL CALL FAMILY AFTER SUPPER.
--- NOTE | 2020-10-22 19:03 | NUR ---
ATTEMPTED TO CALL FAMILY NO ANSWER
--- NOTE | 2020-10-22 19:45 | NUR ---
PT WAS TO BE DISCHARGED TONIGHT. PT WAS UNABLE TO CONTACT HER SISTER AND GET ACSSESS HER HOME. CONTACTED MONE MEIER AND WAS INSTRUCTED TO LET PT REMAIN FOR AN ADDITIONAL NIGHT.
[2020-10-23 04:02] VITALS: BP 156/67
[2020-10-23 08:10] VITALS: BP 110/59
--- NOTE | 2020-10-23 08:10 | NUR ---
ASSESSMENT IS COMPLETED: IV SITE IS FREE FROM REDNESS OR EDEMA. HR IS REG,PULSES ARE STRONG X4, ABD IS SOFT WITH ACTIVEB S. BREATH SOUNDS ARE CLEAR BILATERALLY. TELE MONITOR IN PLACE.
[2020-10-23 11:10] VITALS: BP 127/66
--- NOTE | 2020-10-23 12:00 | NUR ---
PT IS EATING LUNCH IWTH NO DIFFICULTY.
--- NOTE | 2020-10-23 13:57 | NUR ---
PLACED A CALL TO [facility] RE:WELLNESS CHECK TO MAKE SURE SHE IS AT HOME.
--- NOTE | 2020-10-23 14:26 | NUR ---
FAMILY CALLED BACK AND INQUIRED IF WE WERE LOOKING FOR HER EXPLAINED PT IS DISCHARGED.
--- NOTE | 2020-10-23 14:38 | NUR ---
INFORMED PT OF FINALLY GETTING HER SISTER. TOOK IV'S OUT DISCHARGE IS GIVEN. WILL CALL A TAXI FOR THE PT.
--- NOTE | 2020-10-23 14:45 | NUR ---
DISCHARGE INSTRUCTIONS GIVEN AND PT SENT HOME IN A CAB WITH [address], IV SITE ALREADY BEEN DISCONTINUED, Discharge instructions given. Patient verbalizes understanding of same. Discharged in stable condition via Taxi to Home with family. All belongings sent with pt.
[2020-11-13] MEDS ORDERED: OXYCONTIN30 M1 PO (12:50)
[2020-12-27] MEDS ORDERED: OXYCONTIN30 M1 PO (12:22)
== END 2020-10-23 14:45 | disposition home health service (06) ==
LOC: ED 16:39 → ED-I 23:00 → ED 23:37 → MS2 23:38
PROVIDERS: Nurse Practitioner; ADMIT Internal Medicine; ATTEND Internal Medicine
DX: G89.29 Other chronic pain (principal); M48.061 Spinal stenosis, lumbar region without neurogenic claudication; R09.02 Hypoxemia; I10 Essential (primary) hypertension; E11.9 Type 2 diabetes mellitus without complications; I25.10 Atherosclerotic heart disease of native coronary artery without angina pectoris; E78.5 Hyperlipidemia, unspecified; M79.7 Fibromyalgia; F41.9 Anxiety disorder, unspecified; F32.9 Major depressive disorder, single episode, unspecified; E03.9 Hypothyroidism, unspecified; T40.2X6A Underdosing of other opioids, initial encounter; Z91.128 Patient's intentional underdosing of medication regimen for other reason; Z79.891 Long term (current) use of opiate analgesic; Z86.718 Personal history of other venous thrombosis and embolism; Z95.5 Presence of coronary angioplasty implant and graft; Z98.1 Arthrodesis status; Z95.828 Presence of other vascular implants and grafts; Z20.822 Contact with and (suspected) exposure to COVID-19
CPT/HCPCS: A9540; A9567; G0378; J1650

== ENCOUNTER 2020-11-23 11:00 | Observation (INO) | payer MEDICARE ==
[~2020-11-23] VITALS: Ht 167.6 cm; Wt 95.0 kg
[~2020-11-23 11:00] MED LIST changes: +LEXAPRO20 MG PO
[2020-11-23 11:47] LABS: IMMATURE GRANULOCYTES 0.2 % (0.0-5.0); MEAN CELL VOLUME 87.4 fL CALC (80.0-100.0); MEAN CORPUSCULAR HGB 25.1 pG CALC (26.0-32.0); MEAN CORPUSCULAR HGB CONC 28.7 g/dL CAL (32.0-36.0); NEUT# 8.53 thou/uL (2.00-7.15); RED BLOOD COUNT 5.14 mill/uL (4.20-5.60)
[2020-11-23 11:49] LABS: HEMATOCRIT 44.9 % (37.0-47.0); HEMOGLOBIN 12.9 g/dl (12.0-16.0)
[2020-11-23 12:03] LABS: ALBUMIN 4.1 g/dL (3.2-5.0)
[2020-11-23 12:04] LABS: BILIRUBIN, TOTAL 0.8 mg/dL (0.0-1.4); CREATININE 2.1 mg/dL (0.5-1.0); TOTAL PROTEIN 8.2 g/dL (6.3-8.2)
[2020-11-23 12:06] LABS: ACT PARTIAL THROMBO TIME 24.8 SECONDS (20.0-32.5); INTERNATIONAL NORMALIZED RATIO 1.1 RATIO (0.7-1.3); PROTHROMBIN TIME 11.2 SECONDS (9.0-12.5)
[2020-11-23 13:48] LABS: URINE BLOOD DIPSTICK NEGATIVE (NEGATIVE); URINE COLOR YELLOW; URINE GLUCOSE - DIPSTICK NEGATIVE (NEGATIVE); URINE KETONE TRACE mg/dL (NEGATIVE); URINE LEUK ESTERASE NEGATIVE (NEGATIVE); URINE PH 5.5 (4.5-8.0); URINE PROTEIN - DIPSTICK 30 mg/dL (NEG-TRACE); URINE SPECIFIC GRAVITY >=1.030; URINE UROBILINOGEN - DIPSTICK 0.2 E.U./dL (0.2)
[2020-11-23 13:56] LABS: URINE BILIRUBIN - DIPSTICK SMALL (NEGATIVE); URINE EPITHELIAL CELLS FEW EPI/hpf (0-FEW); URINE NITRITE - DIPSTICK NEGATIVE (Negative)
[2020-11-23 13:57] LABS: URINE MUCUS MODERATE hpf (NONE-FEW)
[2020-11-23] MEDS ORDERED: OMEPRAZOLE20 MG PO (15:44)
[2020-11-23] MEDS ORDERED: CARVEDILOL6.25 MG PO (15:44)
[2020-11-23] MEDS ORDERED: LANTUS SOL100 UNIT/M SC (15:45)
[2020-11-23 18:47] VITALS: BP 160/72
[2020-11-23 18:57] VITALS: BP 128/84
[2020-11-23 23:19] VITALS: BP 113/56
[2020-11-24] VITALS (7 sets, daily range): BP systolic 117–153; BP diastolic 60–86
[2020-11-24 08:16] LABS: HEMATOCRIT 42.5 % (37.0-47.0); HEMOGLOBIN 11.6 g/dl (12.0-16.0); IMMATURE GRANULOCYTES 0.1 % (0.0-5.0); MEAN CELL VOLUME 91.4 fL CALC (80.0-100.0); MEAN CORPUSCULAR HGB 24.9 pG CALC (26.0-32.0); MEAN CORPUSCULAR HGB CONC 27.3 g/dL CAL (32.0-36.0); NEUT# 4.65 thou/uL (2.00-7.15); RED BLOOD COUNT 4.65 mill/uL (4.20-5.60)
[2020-11-24 08:31] LABS: ALBUMIN 3.5 g/dL (3.2-5.0); BILIRUBIN, TOTAL 0.7 mg/dL (0.0-1.4); CREATININE 1.2 mg/dL (0.5-1.0); POTASSIUM 4.1 mmol/l (3.5-5.1); TOTAL PROTEIN 6.9 g/dL (6.3-8.2)
[2020-11-25] VITALS (7 sets, daily range): BP systolic 134–158; BP diastolic 57–88
[2020-11-25 05:41] LABS: HEMOGLOBIN 10.2 g/dl (12.0-16.0); MEAN CELL VOLUME 89.2 fL CALC (80.0-100.0); RED BLOOD COUNT 4.08 mill/uL (4.20-5.60); RED CELL DISTRI WIDTH 16.9 % (11.5-15.5)
[2020-11-25 05:52] LABS: HEMATOCRIT 36.4 % (37.0-47.0)
[2020-11-25 05:57] LABS: ALKALINE PHOSPHATASE 82 u/l (38-126); BUN 31 mg/dL (8-23); BUN/CREATININE RATIO 28 (12-20 (CALC)); CHLORIDE 107 mmol/l (95-108); CREATININE 1.1 mg/dL (0.5-1.0); GFR 49 ML/MIN (>=60 (CALC)); GFR FOR AFR.AMER. 59 ML/MIN (>=60 (CALC)); POTASSIUM 4.2 mmol/l (3.5-5.1); SGOT/AST 13 u/l (9-36); SODIUM 138 mmol/l (137-146)
[2020-11-25 06:03] LABS: ANION GAP 8 (6-22 (CALC)); BILIRUBIN, TOTAL 0.2 mg/dL (0.0-1.4); CARBON DIOXIDE 27 mmol/l (22-30)
[2020-11-26] VITALS (7 sets, daily range): BP systolic 110–183; BP diastolic 61–75
[2020-11-26 05:38] LABS: MEAN CELL VOLUME 90.5 fL CALC (80.0-100.0); MEAN CORPUSCULAR HGB 25.3 pG CALC (26.0-32.0); MEAN CORPUSCULAR HGB CONC 27.9 g/dL CAL (32.0-36.0); RED BLOOD COUNT 4.83 mill/uL (4.20-5.60)
[2020-11-26 05:49] LABS: HEMATOCRIT 43.7 % (37.0-47.0); HEMOGLOBIN 12.2 g/dl (12.0-16.0)
[2020-11-26 05:57] LABS: ALKALINE PHOSPHATASE 92 u/l (38-126); ANION GAP 13 (6-22 (CALC)); BUN 23 mg/dL (8-23); BUN/CREATININE RATIO 27 (12-20 (CALC)); CARBON DIOXIDE 24 mmol/l (22-30); CHLORIDE 106 mmol/l (95-108); CREATININE 0.9 mg/dL (0.5-1.0); GFR > 60 ML/MIN (>=60 (CALC)); GFR FOR AFR.AMER. > 60 ML/MIN (>=60 (CALC)); POTASSIUM 4.6 mmol/l (3.5-5.1); SGOT/AST 20 u/l (9-36); SODIUM 138 mmol/l (137-146)
[2020-11-26 06:08] LABS: ALBUMIN 3.8 g/dL (3.2-5.0); BILIRUBIN, TOTAL 0.4 mg/dL (0.0-1.4); TOTAL PROTEIN 7.3 g/dL (6.3-8.2)
[2020-11-26] MEDS ORDERED: XANAX0.5 MG PO (15:02)
[2020-11-26] MEDS ORDERED: OXYCONTIN30 M1 PO (15:02)
[2020-12-27] MEDS ORDERED: OXYCONTIN30 M1 PO (12:22)
[2021-02-05] MEDS ORDERED: OXYCONTIN30 M1 PO (15:20)
[2021-04-09] MEDS ORDERED: OXYCONTIN15 MG PO (14:24)
== END 2020-11-26 20:35 ==
LOC: ED 11:00 → ED-I 14:20 → ED 14:30 → MS2 14:31
PROVIDERS: Nurse Practitioner Family; ADMIT Internal Medicine; ATTEND Internal Medicine
DX: S09.90XA Unspecified injury of head, initial encounter (principal); N17.9 Acute kidney failure, unspecified; E86.0 Dehydration; I10 Essential (primary) hypertension; E11.9 Type 2 diabetes mellitus without complications; E78.5 Hyperlipidemia, unspecified; I25.10 Atherosclerotic heart disease of native coronary artery without angina pectoris; E03.9 Hypothyroidism, unspecified; M79.7 Fibromyalgia; F41.9 Anxiety disorder, unspecified; F32.9 Major depressive disorder, single episode, unspecified; M48.00 Spinal stenosis, site unspecified; W18.39XA Other fall on same level, initial encounter; Y92.009 Unspecified place in unspecified non-institutional (private) residence as the place of occurrence of the external cause; Z60.2 Problems related to living alone; Z95.5 Presence of coronary angioplasty implant and graft; Z86.718 Personal history of other venous thrombosis and embolism; Z79.01 Long term (current) use of anticoagulants; Z20.822 Contact with and (suspected) exposure to COVID-19
CPT/HCPCS: G0378; J1650

== ENCOUNTER 2021-01-20 17:39 | Emergency (ER) | payer MEDICARE ==
[~2021-01-20] VITALS: Ht 167.6 cm; Wt 75.0 kg
[~2021-01-20 17:39] MED LIST changes: +LANTUS SOL100 UNIT/M SC; +OMEPRAZOLE20 MG PO
[2021-01-20 18:41] VITALS: BP 150/74
== END 2021-01-20 18:41 | disposition home or self-care (01) ==
LOC: ED 17:39
DX: S61.032A Puncture wound without foreign body of left thumb without damage to nail, initial encounter (principal); S90.414A Abrasion, right lesser toe(s), initial encounter; I10 Essential (primary) hypertension; E11.9 Type 2 diabetes mellitus without complications; M79.7 Fibromyalgia; F41.9 Anxiety disorder, unspecified; F32.9 Major depressive disorder, single episode, unspecified; E03.9 Hypothyroidism, unspecified; W20.8XXA Other cause of strike by thrown, projected or falling object, initial encounter; W26.0XXA Contact with knife, initial encounter; Z95.5 Presence of coronary angioplasty implant and graft; Z79.4 Long term (current) use of insulin; Z79.01 Long term (current) use of anticoagulants; Z86.718 Personal history of other venous thrombosis and embolism

== ENCOUNTER 2021-02-08 07:14 | Inpatient (IN) | payer MEDICARE ==
[~2021-02-08] VITALS: Ht 162.6 cm; Wt 103.0 kg
[2021-02-08] VITALS (9 sets, daily range): BP systolic 107–154; BP diastolic 50–67
--- NOTE | 2021-02-08 00:01 | NUR ---
PATIENT ASKING FOR PAIN MEDICATION OR A XANAX
--- NOTE | 2021-02-08 07:14 | NUR ---
PATIENT ARRIVED VIA EMS UNABLE TO FOLLOW COMMANDS AND ASPHASIC UNKNOW LKW. STROKE ALERT CALLED AND MD NOTIFIED OF PATIENT STATUS. UNABLE TO DO MED REC DUE TO PATIENTS MENTAL STATUS PHARMACY CONSULT PLACED
--- NOTE | 2021-02-08 07:30 | NUR ---
ON SCREEN WITH DR FLOWERS ASSESMENT COMPLETED. SHE IS NOT A TPA CANDIDATE, HE ATTEMPTED TO CALL FAMILY BUT WAS WRONG NUMBER.
--- NOTE | 2021-02-08 08:00 | NUR ---
PATIENT TAKEN BACK TO ER WE ARE UNABLE TO START IV SITE. MD AWARE AND NURSE AT BEDSIDE TO ATTEMPT IV ACCESS.
--- NOTE | 2021-02-08 08:20 | NUR ---
UNABLE TO ESTABLISH IV SITE. AWARE.
[2021-02-08 09:05] LABS: URINE BLOOD DIPSTICK NEGATIVE (NEGATIVE); URINE COLOR YELLOW; URINE GLUCOSE - DIPSTICK NEGATIVE (NEGATIVE); URINE KETONE TRACE mg/dL (NEGATIVE); URINE LEUK ESTERASE NEGATIVE (NEGATIVE); URINE PH 5.5 (4.5-8.0); URINE PROTEIN - DIPSTICK 30 mg/dL (NEG-TRACE); URINE SPECIFIC GRAVITY >=1.030; URINE UROBILINOGEN - DIPSTICK 0.2 E.U./dL (0.2)
[2021-02-08 09:06] LABS: URINE NITRITE - DIPSTICK NEGATIVE (Negative)
[2021-02-08 09:08] LABS: HEMATOCRIT 42.4 % (37.0-47.0); HEMOGLOBIN 12.3 g/dl (12.0-16.0); IMMATURE GRANULOCYTES 0.2 % (0.0-5.0); MEAN CORPUSCULAR HGB 24.6 pG CALC (26.0-32.0); NEUT# 10.46 thou/uL (2.00-7.15); RED BLOOD COUNT 5.01 mill/uL (4.20-5.60); RED CELL DISTRI WIDTH 15.9 % (11.5-15.5)
[2021-02-08 09:11] LABS: MEAN CELL VOLUME 84.6 fL CALC (80.0-100.0)
[2021-02-08 09:11] LABS: URINE BILIRUBIN - DIPSTICK NEGATIVE (NEGATIVE)
[2021-02-08 09:14] LABS: URINE BACTERIA FEW hpf; URINE SQUAMOUS EPITHELIAL CELL MODERATE EPI/hpf (0-FEW); URINE WBC 0-2 WBC/hpf (0-5)
[2021-02-08 09:15] LABS: URINE HYALINE CAST FEW lpf (NONE-RARE)
[2021-02-08 09:27] LABS: PROTHROMBIN TIME 10.1 SECONDS (9.0-12.5)
[2021-02-08 09:34] LABS: ALBUMIN 4.2 g/dL (3.2-5.0); ALKALINE PHOSPHATASE 107 u/l (38-126); BUN 29 mg/dL (8-23); BUN/CREATININE RATIO 27 (12-20 (CALC)); CHLORIDE 106 mmol/l (95-108); CREATININE 1.1 mg/dL (0.5-1.0); GFR 49 ML/MIN (>=60 (CALC)); GFR FOR AFR.AMER. 59 ML/MIN (>=60 (CALC)); POTASSIUM 3.7 mmol/l (3.5-5.1); SGOT/AST 20 u/l (9-36); SODIUM 142 mmol/l (137-146); TOTAL PROTEIN 8.1 g/dL (6.3-8.2)
[2021-02-08 09:51] LABS: ANION GAP 10 (6-22 (CALC)); BILIRUBIN, TOTAL 0.7 mg/dL (0.0-1.4); CARBON DIOXIDE 30 mmol/l (22-30)
[2021-02-08 10:00] LABS: TSH, 3RD GENERATION 1.95 uIU/mL (0.47 - 4.68)
--- NOTE | 2021-02-08 10:20 | NUR ---
PATIENT RESTING IN STRETCHER WITH EYES CLOSED. SHE AWAKENS TO VERBAL STIMULI.
--- NOTE | 2021-02-08 11:20 | NUR ---
DR FERNANDEZ AT BEDSIDE TO ASSESS PATIENT. SHE REMAINS DROWSY BUT AWAKENS TO VERBAL STIMULI.
--- NOTE | 2021-02-08 12:15 | NUR ---
PATIENT ALERT AND TALKING WITH STAFF AND IS ANSWERING QUESTIONS APPROPRIATLEY AT THIS TIME. SKIN TEAR TO LEFFT HAND CLEANED AND DRESSING PLACED. SHE IS AWARE OF PENDING ADMISSSION AND WAIT TIME.
--- NOTE | 2021-02-08 12:21 | NUR ---
recieved patient repot from Leora MALDONADO, from ER.
--- NOTE | 2021-02-08 12:26 | NUR ---
PATIENT REPORT CALLED TO ERICA LAKHANI.
--- NOTE | 2021-02-08 13:00 | NUR ---
Admission Note Report Given to: ERICA LAKHANI Transported by: Wheelchair X Stretcher Transported with: X Nurse Transporter X Patent IV X O2 X Grain Operator Location: ICU MS2 TO ICU 2 IN STABLE CONDITION.
--- NOTE | 2021-02-08 13:00 | NUR ---
PATIENT IS A/O X2, KNOWS SHE IS IN THE HOSPITAL BUT DOESN'T KNOW WHAT ONE. DOES FOLLOW SIMPLE COMMANDS. SPEECH IS CLEAR, 2MM PERRLA SLUGGISH BILAT EYES. SCORED 2 ON NIH SCALE. BLE DRIFT DOWN, SHE STATES ITS BECAUSE SHES ALWAYS BEEN WEAK IN HER LEGS. CLEAR LUNG SOUNDS. ACTIVE BOWEL SOUNDS. OBESE SOFT NON TENDER ABDOMEN. DENIES PAIN AT THIS TIME. DOES REQUEST HER OXY PAIN MED SEVERAL TIMES, STATES SHE IS OUT AND NEEDS MORE. STRONG EQUAL HAND DATA WAREHOUSE SPECIALIST, NO ARM DRIFT. EDEMA 2/3+ BLE. STRONG PULSES. SKIN TEAR ON LEFT HAND, BRUSING ON FACE RELATED TO HER FALL AT HOME. SAFETY MEASURES IN PLACE. CALL [facility] [place], SHE PREFERS TO YELL AT NURSE EVEN AFTER EDUCATION WAS PROVIDED, WILL STACY TO MONITOR PER HOSPITAL'S POLICY.
[2021-02-08] MEDS ORDERED: XANAX XR0.5 MG PO (14:10)
--- NOTE | 2021-02-08 20:00 | NUR ---
PATIENT IS CALLING OUT OFTEN. SEEMS AGITATED
[2021-02-09] VITALS (12 sets, daily range): BP systolic 131–199; BP diastolic 56–91
[2021-02-09 04:43] LABS: HEMATOCRIT 36.9 % (37.0-47.0); HEMOGLOBIN 10.9 g/dl (12.0-16.0); MEAN CELL VOLUME 84.2 fL CALC (80.0-100.0); MEAN CORPUSCULAR HGB 24.9 pG CALC (26.0-32.0); MEAN CORPUSCULAR HGB CONC 29.5 g/dL CAL (32.0-36.0); RED BLOOD COUNT 4.38 mill/uL (4.20-5.60); RED CELL DISTRI WIDTH 15.9 % (11.5-15.5)
--- NOTE | 2021-02-09 04:45 | NUR ---
PATIENT FEELING SLIGHTLY NAUSEAOUS. ICE CHIPS GIVEN AND BASIN. NO VOMITTING
[2021-02-09 04:46] LABS: ANION GAP 10 (6-22 (CALC)); BUN 28 mg/dL (8-23); BUN/CREATININE RATIO 27 (12-20 (CALC)); CARBON DIOXIDE 30 mmol/l (22-30); CHLORIDE 104 mmol/l (95-108); GFR 55 ML/MIN (>=60 (CALC)); GFR FOR AFR.AMER. > 60 ML/MIN (>=60 (CALC)); POTASSIUM 3.5 mmol/l (3.5-5.1); SODIUM 140 mmol/l (137-146)
--- NOTE | 2021-02-09 05:47 | NUR ---
patient bp 179/75 medication given and will reassess bp in 30 mins
--- NOTE | 2021-02-09 06:02 | NUR ---
IV BP MEDICATION WAS THERAPEUTIC. BP 134/64
--- NOTE | 2021-02-09 07:00 | NUR ---
REPORT RECEIVED FROM ERICA PRESLEY. PT AWAKE AND ALERT AND TEARFUL EYED. PT VS OBTAINED AND BP IS ELEVATED. WILL NOTIFY MD OF PT'S BP AND ELEVATED PAIN STATUS. PT POC REVIEWED, CALL LIGHT WITHIN REACH. INSTRUCTED PT TO CALL FOR ASSISTANCE, VERBALIZES UNDERSTANDING.
--- NOTE | 2021-02-09 10:00 | NUR ---
PHYSICAL THERAPY IN TO SEE PT FOR EVALUATION. IMFORMED PT OF ORDER FOR PAIN MEDICATION, STATES UNDERSTANDING. WILL MEDICATE WHEN AVAILABLE.
--- NOTE | 2021-02-09 12:04 | NUR ---
PT GIVEN APRESOLINE FOR ELEVATED BP AT THIS TIME WITH PAIN MEDICATION AND DAILY PO MEDICATION FOR BP. WILL RE-EVALUATE IN 30 MINUTES.
--- NOTE | 2021-02-09 18:19 | NUR ---
PT GIVEN MORPHINE FOR BREAKTHROUGH PAIN. SCHEDULE UPDATED ON WHITE BOARD FOR PATIENT CLARIFICATION. PT STATES UNDERSTANDING.
--- NOTE | 2021-02-09 19:15 | NUR ---
pt awake in bed; no apparent distress noted; assessment completed at this time; pt alert and oriented; admits to pain; prn pain medications explained including when next dose is available to administer; no n/v noted; bruising noted to left face; resp even and unlabored; lungs clear bilat; skin color wnl; ra; hr reg; strong pulses; trace edema noted to ble; sr on monitor; abd soft/ obese with bs present; no bm noted per newswriter; no urine to inspect at this time; TLC intact to RIJ; no redness or edema noted at site; duodern intact to left hand (skin tear); plan of care/ meds explained; pt requesting sleeping pill; will notify MD; call light within reach; will continue to monitor
--- NOTE | 2021-02-09 19:25 | NUR ---
Dr Mckinley called per pt request for sleeping aid; order to be placed
--- NOTE | 2021-02-09 20:01 | NUR ---
awake in bed; requesting sleeping aid; informed MD has been informed; sr on monitor; iv intact; call light within reach; will continue to monitor
--- NOTE | 2021-02-09 20:55 | NUR ---
meds explained and administered; pt encouraged to reposition d/t paon at buttocks and generalized pain; pressure leny explained; pt declined repositioned at this time
--- NOTE | 2021-02-09 22:06 | NUR ---
resting in bed with eyes closed; iv intact; sr on monitor; call light within reach; will continue to monitor
--- NOTE | 2021-02-09 23:48 | NUR ---
awake in bed; calling out; instructed to use call light; pt requesting gabapentin; informed pt she had been medicated; pt now requesting pain meds; will medicate when due
[2021-02-10] VITALS (13 sets, daily range): BP systolic 117–191; BP diastolic 53–89
--- NOTE | 2021-02-10 00:06 | NUR ---
awake in bed; medicated for pain as per request; sr on monitor; iv intact; call light within reach; will continue to monitor
--- NOTE | 2021-02-10 02:06 | NUR ---
awake; no distress noted; sr on monitor; will continue to monitor
--- NOTE | 2021-02-10 03:30 | NUR ---
placed on bedpan; no urine noted; pericare provided/ partial bath; linens changed; nystatin powder applied to abd fold; will continue to monitor
--- NOTE | 2021-02-10 04:00 | NUR ---
pt awake in bed; offers no complaints; iv intact and patent; no redness or edema noted at site; sr on monitor; call light within reach; will continue to monitor
--- NOTE | 2021-02-10 04:30 | NUR ---
labs obtained from TLC; lumens flushed and patent; brisk blood aspirate noted from all lumens; will continue to monitor
[2021-02-10 04:51] LABS: HEMATOCRIT 37.4 % (37.0-47.0); MEAN CELL VOLUME 84.4 fL CALC (80.0-100.0); MEAN CORPUSCULAR HGB 24.8 pG CALC (26.0-32.0); MEAN CORPUSCULAR HGB CONC 29.4 g/dL CAL (32.0-36.0); RED BLOOD COUNT 4.43 mill/uL (4.20-5.60); RED CELL DISTRI WIDTH 16.2 % (11.5-15.5)
[2021-02-10 05:32] LABS: ANION GAP 9 (6-22 (CALC)); BUN 22 mg/dL (8-23); BUN/CREATININE RATIO 29 (12-20 (CALC)); CARBON DIOXIDE 27 mmol/l (22-30); CHLORIDE 105 mmol/l (95-108); CREATININE 0.8 mg/dL (0.5-1.0); GFR > 60 ML/MIN (>=60 (CALC)); GFR FOR AFR.AMER. > 60 ML/MIN (>=60 (CALC)); MAGNESIUM 1.9 mg/dL (1.6-2.3); POTASSIUM 3.6 mmol/l (3.5-5.1); SODIUM 138 mmol/l (137-146)
--- NOTE | 2021-02-10 06:07 | NUR ---
pt resting in bed; offers no complaints; iv intact; sr on monitor; call light within reach
--- NOTE | 2021-02-10 07:00 | NUR ---
REPORT RECEIVED FROM ERICA DAO. PT VS OBTAINED AND BP IS ELEVATED. WILL GIVE PRN APRESOLINE. PT REPORTS "IM FEELING BETTER" PT ADMITS TO ALWAYS LIVING WITH A PAIN OF 5 OUT 10 WITH EVERYDAY LIFE. REALISTIC GOAL EXPECTATION PLACED. STATES UNDERSTANDING. POC REVIEWED, WILL ATTEMPT PERIPHERAL IV SITE AND INCREASE ADL TODAY. PT AGREABLE. CALL LIGHT WITHIN REACH. INSTRUCTED PT TO CALL FOR ASSISTANCE, VERBALIZES UNDERSTANDING.
--- NOTE | 2021-02-10 12:00 | NUR ---
PT RESTING, AWAKE REQUESTING PAIN MEDICATION. GIVEN OXYCONTINE AT THIS TIME. PT DENIES ANY FURTHER NEEDS AT THIS TIME. CALL LIGHT WITHIN REACH. INSTRUCTED PT TO CALL FOR ASSISTANCE, STATES UNDERSTANDING.
--- NOTE | 2021-02-10 17:00 | NUR ---
NEW IV SITE OBTAINED AT THIS TIME. CENTRAL LINE REMOVED. PT TOLERATED PROCEDURE WELL. NO EVIDENCE OF BLOOD LOSS FROM CENTRAL LINE SITE NOTICED. PRESSURE DRESSING APPLIED.
--- NOTE | 2021-02-10 19:00 | NUR ---
RECEIVED REPORT FROM NURSE THOMPSON, ASSUMED PATIENT CARE, PATIENT RESTING IN BED, WITH EYES CLOSED, BREATHING UNLABORED, CALL LIGHT AT REACH.
--- NOTE | 2021-02-10 20:00 | NUR ---
PATIENT ALERT ORIENTED X 3, ABLE TO MAKE NEEDS KNOWN, RESPONDS SLOWLY, WITH SALINE LOCK ON RT HAND PATENT FLUSHES WELL, HOOKED TO FUNCTIONAL ARCHITECT SR 84, LBM 02/07, PATIENT OFFERED MILK OF MAGNESIA AND PRUNE JUICE REFUSED TO TAKE TONIGHT STATED " WILL TAKE TOMORROW MORNING", PATIENT NOTED TO HAVE FACIAL BRUISING ON LEFT SIDE OF THE FACE, SKIN TEAR ON LEFT HAND COVERED WITH DERMABOND, REDNESS NOTED UNDER BILATERAL BREAST, TRACE OF EDEMA NOTED ON BLE LEGS OFFLOADED WITH PILLOW, C/O PAIN STATED " REAR END" PATIENT TURNED AND REPOSITIOND ON RT SIDE PILLOW PLACED ON BACK, WILL MEDICATE, CALL LIGHT AT REACH.
--- NOTE | 2021-02-10 22:00 | NUR ---
PATIENT AWAKE AT THIS TIME, HEAD OF BED ELEVATED TO 35 DEGREES FOR COMFORT.
[2021-02-11] VITALS (9 sets, daily range): BP systolic 107–152; BP diastolic 51–91
--- NOTE | 2021-02-11 00:09 | NUR ---
PATIENT REFUSED TO WEAR BP CUFF, STATED ARM HURTS WHEN ITS INFLATED, OFFERED TO CHANGE ARM POSITION, STILL REFUSED, WILL HAVE BP CHECKED ABOUT 2AM.
--- NOTE | 2021-02-11 02:04 | NUR ---
PATIENT RESTING IN BED WITH EYES CLOSED, BREATHING EVEN AND UNLABORED, CALL LIGHT AT REACH.
--- NOTE | 2021-02-11 04:00 | NUR ---
PARTIAL BATH DONE, PERINEAL CARE PROVIDED, LINEN AND PATIENT GOWN CHANGED, PATIENT STILL SOME PAIN ON HER COCCYX, REFUSED PAIN MEDICATION BUT DID REPOSITION, NYSTATIN POWDER APPLIED UNDER BREAST AND GROIN.
[2021-02-11 05:41] LABS: ANION GAP 11 (6-22 (CALC)); BUN 21 mg/dL (8-23); BUN/CREATININE RATIO 28 (12-20 (CALC)); CARBON DIOXIDE 23 mmol/l (22-30); CHLORIDE 106 mmol/l (95-108); CREATININE 0.8 mg/dL (0.5-1.0); GFR > 60 ML/MIN (>=60 (CALC)); GFR FOR AFR.AMER. > 60 ML/MIN (>=60 (CALC)); MAGNESIUM 1.9 mg/dL (1.6-2.3); SODIUM 136 mmol/l (137-146)
[2021-02-11 05:52] LABS: HEMATOCRIT 37.5 % (37.0-47.0); HEMOGLOBIN 11.1 g/dl (12.0-16.0); MEAN CELL VOLUME 84.8 fL CALC (80.0-100.0); MEAN CORPUSCULAR HGB 25.1 pG CALC (26.0-32.0); MEAN CORPUSCULAR HGB CONC 29.6 g/dL CAL (32.0-36.0); RED BLOOD COUNT 4.42 mill/uL (4.20-5.60)
--- NOTE | 2021-02-11 06:09 | NUR ---
PATIENT RESTING IN BED WITH EYES CLOSED, BREATHING UNLABORED, CALL LIGHT AT REACH.
--- NOTE | 2021-02-11 07:00 | NUR ---
ASSUMED CARE OF PT FROM NIGHTSHIFT RN, TRAE, NO S/S OF DISTRESS NOTED. PT APPEARS TO BE SLEEPING COMFORTABLY
--- NOTE | 2021-02-11 07:45 | NUR ---
PT SAT UP IN BED AND PROVIDED BREAKFAST TRAY, ASSESSMENT COMPLETED. PT DENIES PAIN AT THIS TIME
--- NOTE | 2021-02-11 08:25 | NUR ---
REMOVED BREAKFAST TRAY, PT NOW C/O PAIN 12/04. STATES MOVING AROUND FOR BREAKFAST EXACERBATED PAIN. PT MEDICATED WITH PRN PAIN MEDICATION PER EMAR
--- NOTE | 2021-02-11 08:30 | NUR ---
DR.CORNEJO WARREN AT PT BEDSIDE
--- NOTE | 2021-02-11 09:03 | NUR ---
CALLED FOR A BED IN M/S
--- NOTE | 2021-02-11 10:26 | NUR ---
PT AT BEDSIDE WITH PT
--- NOTE | 2021-02-11 11:00 | NUR ---
PT IS UP TO CHAIR, WATCHING TV, VSS STABLE, LINENS CHANGED, DENIES NEEDS
--- NOTE | 2021-02-11 12:35 | NUR ---
PT INSISTED ON GETTING BACK IN BED BEFORE FINISHING HER LUNCH. ASSITED BACK TO BED WITH 2ND RN. VSS, NO S/S OF DISTRESS NOTED
--- NOTE | 2021-02-11 15:11 | NUR ---
PT SLEEPING IN BED, NO S/S OF DISTRESS NOTED
--- NOTE | 2021-02-11 16:08 | NUR ---
PT APPEARS TO BE HALLUCINATING. INSISTING THERE A BUGS ON CEILING AND THAT SHE GOT A KINK IN HER NECK WATCHING MEN MOVE A CAR OUTSIDE HER WINDOW WHICH LOOKS OUT ONTO THE SECOND FLOOR ROOF.
--- NOTE | 2021-02-11 18:07 | NUR ---
PT IN BED, EATING DINNER. NO S/S OF DISTRESS NOTED, VSS
--- NOTE | 2021-02-11 19:45 | NUR ---
ASSESSMENT DONE STATES GENERALIZED PAIN MONITOR SHOWS SR O2 SAT 92% ON RA
--- NOTE | 2021-02-11 20:23 | NUR ---
MEDICATED WITH OXYCONTIN AND SONATA PER PT REQUEST
--- NOTE | 2021-02-11 22:12 | NUR ---
AWAKE WATCHING TV TURNS SELF IN BED
--- NOTE | 2021-02-11 23:37 | NUR ---
RESTING IN BED WITH EYES CLOSED MONITOR SHOW SR
[2021-02-12] VITALS (19 sets, daily range): BP systolic 71–124; BP diastolic 36–68
--- NOTE | 2021-02-12 01:36 | NUR ---
RESTING WITH EYES CLOSED VSS
--- NOTE | 2021-02-12 03:10 | NUR ---
APPEARS TO BE SLEEPING
--- NOTE | 2021-02-12 03:30 | NUR ---
ROUSED PT OT VOID PT ON BEDPAN UNABLE TO VOID IMMEDIATLY WILL LEAVEON BEDPAN FOR A FEW MINUTES
--- NOTE | 2021-02-12 03:45 | NUR ---
UNABLETO VOID AT THIS TIME PERICARE DONE
--- NOTE | 2021-02-12 04:00 | NUR ---
BLADDER SCAN DONE 89CC NOTED PT STATES I DONT NEED TO PEE
[2021-02-12 05:34] LABS: HEMOGLOBIN 11.3 g/dl (12.0-16.0); IMMATURE GRANULOCYTES 0.6 % (0.0-5.0); MEAN CELL VOLUME 86.5 fL CALC (80.0-100.0); MEAN CORPUSCULAR HGB 25.1 pG CALC (26.0-32.0); NEUT# 4.29 thou/uL (2.00-7.15); RED BLOOD COUNT 4.51 mill/uL (4.20-5.60); RED CELL DISTRI WIDTH 16.7 % (11.5-15.5)
[2021-02-12 05:58] LABS: MAGNESIUM 2.1 mg/dL (1.6-2.3)
[2021-02-12 06:00] LABS: CREATININE 1.9 mg/dL (0.5-1.0)
--- NOTE | 2021-02-12 07:08 | NUR ---
ASSUMED CARE FROM TRANSPORTATION ENGINEER RN. VSS, NO S/S OF DISTRESS NOTED. PT APPEARS TO BE SLEEPING.
--- NOTE | 2021-02-12 07:20 | NUR ---
PT SITTING UP EATING BREAKFAST
--- NOTE | 2021-02-12 07:39 | NUR ---
02/11/21 Patient is confused- does not remember eating breakfast. She is seen for functional asseessment and transfer training. She demonstrated excrutiatingly slow transtional mvement and required mod assist for supine to sit EOB transfers. Once up at bedside, she is able to maintain static sitting balance but does require mod assist for bed to chair transfers . Am Pac score is 10 indicating she would do well in ECF. 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 Case Management is looking into this as well. Our plan at this point is to encourage ECF of some kind for her to regain strnegth and prevent falls. She would also benefit from OT for ADl help and ST for cognitive therapy
--- NOTE | 2021-02-12 08:00 | NUR ---
JOSE MANUEL, OT AT BEDSIDE
--- NOTE | 2021-02-12 08:20 | NUR ---
ROUNDING AT BEDSIDE
--- NOTE | 2021-02-12 10:00 | NUR ---
PT APPEARS TO BE RESITNG IN BED, 500ML BOLUS INFUSING, MD AWARE OF HYPOTENSION
--- NOTE | 2021-02-12 12:00 | NUR ---
PT SITTING UP EASTING LUNCH, DENIES ANY NEEDS AT THIS TIME
--- NOTE | 2021-02-12 13:37 | NUR ---
MIRANDA RAMIREZ NOTIFIED OF PT INCREASING HYPOTENSION. ORDERS PLACED IN CHART AND FOLLOWED.
--- NOTE | 2021-02-12 14:32 | NUR ---
PT SLEEPING IN BED, O2 SAT DROPPED TO 79%, PLACED ON NC AT 3L. O2 SAT RECOVERED TO 97%
--- NOTE | 2021-02-12 15:22 | NUR ---
Patient was awake in supine and agreed to sit up in bed despite reports of feeling groggy. Pt reported 6/10 back pain but was able to complete sup -> sit with mod A and maintain static sitting balance while completing self care tasks at EOB with s/u A. Pt required mod A to return to supine d/t back pain and decreased LE strength. AM-PAC score: 10 - d/c to ECF d/t decreased safety awareness and increased fall risk while completing functional mobility and ADL tasks.
--- NOTE | 2021-02-12 15:42 | NUR ---
MATHUR PLACED FOR ACCURATE I AND OS AND URINARY RETENTION. ASEPTIC TECHNIQUE FOLLOWED,PT TOLEREATED WELL, 225ML OF BAY URINE DRAINED AFTER PLACEMENT
[2021-02-12 16:57] LABS: CREATININE 2.1 mg/dL (0.5-1.0); POTASSIUM 4.4 mmol/l (3.5-5.1)
--- NOTE | 2021-02-12 17:04 | NUR ---
NOTIFIED MIRANDA RAMIREZ OF INCREASED CREATINE LEVEL AND OUTPUT OF 200ML URINE FOR SHIFT. HE WILL BE CONSULTING NEPHROLOGY.
--- NOTE | 2021-02-12 20:00 | NUR ---
PATIENT ASLEEP AND EASY TO AROUSE. PATIENT BP IS STABLE. WILL MONITOR AND REASSESS FOR PAIN.
[2021-02-13] VITALS (10 sets, daily range): BP systolic 99–137; BP diastolic 46–64
--- NOTE | 2021-02-13 | NUR ---
PATIENT SLEEPING. VITALS REMAIN STABLE AND RECOREDED.
--- NOTE | 2021-02-13 04:00 | NUR ---
PATIENT ASLEEP. VITALS STABLE
[2021-02-13 05:15] LABS: HEMATOCRIT 36.3 % (37.0-47.0); HEMOGLOBIN 10.3 g/dl (12.0-16.0); IMMATURE GRANULOCYTES 0.9 % (0.0-5.0); MEAN CELL VOLUME 87.7 fL CALC (80.0-100.0); MEAN CORPUSCULAR HGB 24.9 pG CALC (26.0-32.0); MEAN CORPUSCULAR HGB CONC 28.4 g/dL CAL (32.0-36.0); NEUT# 4.6 thou/uL (2.00-7.15); RED BLOOD COUNT 4.14 mill/uL (4.20-5.60); RED CELL DISTRI WIDTH 16.5 % (11.5-15.5)
[2021-02-13 05:28] LABS: CREATININE 1.6 mg/dL (0.5-1.0); MAGNESIUM 2.4 mg/dL (1.6-2.3); POTASSIUM 4.6 mmol/l (3.5-5.1)
--- NOTE | 2021-02-13 08:10 | NUR ---
TRANSFERRED OFF UNIT VIA STRETCHER FOR RENAL U/S.
--- NOTE | 2021-02-13 08:40 | NUR ---
RETURNED TO UNIT UNABLE TO READ RENAL U/S R/T STOOL IMPAIRING VIEW. DR GALEANA MADE AWARE.
--- NOTE | 2021-02-13 10:00 | NUR ---
RESTING IN BED. NEW ORDERS RECIEVED.
--- NOTE | 2021-02-13 11:49 | NUR ---
DR PARK IN TO SEE PT MADE AWARE UNABLE TO COMPLETE RENAL U/S DUE TO STOOL IMPAIRING IMAGE.
--- NOTE | 2021-02-13 13:59 | NUR ---
S: Patient was willing to work with PT but did show signs of confusion and decreased energy level. O: Patient performed 2 x 10 ea AAROM knee flexion with hip flexion 2 x 10 ea AAROM hip abduction/adduction 2 x 10 ea ankle pumps A: Patient reported having a decreased energy level and did not have the energy to get out of bed. Patient reported that her legs were still aching and had some pain during AAROM. Patient could not move legs independently and required assistance. BLE had increased muscular/ joint stiffness globally with LLE being more than RLE. Patient also will be receiving additional imaging/ testing later on this date. P: Patient will continue with all ROM activities and strengthening activities to increase abiliity to perform ADLs, bed mobility, and transfers. AMPAC score of 9 would reccomend discharge to [facility].
--- NOTE | 2021-02-13 15:00 | NUR ---
RECEIVED REPORT AT THIS TIME FROM RADHA MALDONADO ICU NURSE.
--- NOTE | 2021-02-13 15:17 | NUR ---
REPORT GIVEN TO RECIEVING NURSE. TRANSPORTED SAFELY VIA BED TO 279.
--- NOTE | 2021-02-13 15:20 | NUR ---
PATIENT RECEIVED AT THIS TIME FROM ICU. PATIENT ALERT TO NAME AND PLACE AND WAS ABLE TO ANSWER QUESTIONS ASKED CORRECTLY. PATIENT GIVEN NEW ROOM ORIENTATION AND SAFETY ORIENTATION AT THIS TIME. PATIENT SPO2 AT THIS TIME IS 90% OR 1L OF O2 PER NASAL CANULA AT THIS TIME. PATIENT PRESENTS WITH AN OLD BRUISE TO THS LEFT BELOW EYE ORBIT AT THIS TIME AND IS YELLOW IN COLOR. PATIENT DOES HAVE A MATHUR AND IT IS PATENT AND DRAINING YELLOW URINE AT THIS TIME. PATIENT WAS HANDED THE NURSE CALL LIGHT BUTTON AND EDUCATED ON THE USE OF THIS REMOTE. PATIENT HAS A #20 AUTOGUARD IV IN THE RIGHT HAND AND .9NS RUNNING IN AT 50ML'S/PER/HR. AT THIS TIME. PATIENT WILL CONTINUE TO BE MONITORED AND DENIES ANY NEEDS CURRENTLY.
--- NOTE | 2021-02-13 16:00 | NUR ---
PATIENT LAYING IN BED AT THIS TIME. PATIENT EDUCATED ON THE USE OF NYSTATIN POWDER AND VERBALIZED UNDERSTANDING. THIS NURSE APPLIED NYSTATIN POWDER UNDER BREAST FOLDS AND GROIN AREA AND BUTTOCK AT THIS TIME. ALL AREA'S ARE PINK IN COLOR AND NO OPEN WOUNDS NOTED. PATIENT WAS THEN REPOSTIONED IN BED WITH HELP OF JEROME PARDO AT THIS TIME. PATIENT LEGS ARE NOTED TO BE LARGE AND PATIENT STATES THAT THEY LOOK NORMAL TO HER. PEDAL PULSES ARE PRESENT AND NO PITTING EDEMA NOTED. PATIENT WILL CONTINUE TO BE MONITORED AT THIS TIME. SIDERAILS ARE UP CALL LIGHT WITHIN REACH.
--- NOTE | 2021-02-13 16:25 | NUR ---
Pt in supine in bed and appeared extra groggy. She refused treatment today, said she was hungry and had not eaten. Pt agreed to use warm cloth to wipe her face, however, and demonstrated poor coordination and quality of movement. Am-Pac score of 10. Consder d/c to ECF to promote improved balance, strength and coordination while completing self-care tasks.
--- NOTE | 2021-02-13 20:01 | NUR ---
PHYSICAL ASSESMENT COMPLETE. PT C/0 PAIN AND DISCOMFORT. SCHEDULED MEDICATIONS AND PRN MEDICATION ADMINISTERED, SEE E-MAR. PT DENIES ANY NEEDS AT THIS TIME. PLAN OF CARE REVIEWED, PT DENIES QUESTIONS, VERBALIZES UNDERSTANDING. ITEMS WITHIN REACH, BED LOCKED IN LOW POSITION W/ BEDRAILS UP X2. CALL [place] WITHIN REACH, AGREES TO CALL PRN.
[2021-02-14 04:00] VITALS: BP 130/61
--- NOTE | 2021-02-14 05:09 | NUR ---
PT RESTING IN BED, NO SIGNS OF DISTRESS NOTED, RESP EVEN AND UNLABORED. PT VOICES NO NEEDS OR COMPLAINTS AT THIS TIME. CALL LIGHT IN REACH, CONTINUE TO MONITOR.
[2021-02-14 05:44] LABS: HEMATOCRIT 35.4 % (37.0-47.0); HEMOGLOBIN 10.1 g/dl (12.0-16.0); IMMATURE GRANULOCYTES 0.2 % (0.0-5.0); MEAN CELL VOLUME 88.3 fL CALC (80.0-100.0); MEAN CORPUSCULAR HGB 25.2 pG CALC (26.0-32.0); MEAN CORPUSCULAR HGB CONC 28.5 g/dL CAL (32.0-36.0); NEUT# 3.04 thou/uL (2.00-7.15); RED BLOOD COUNT 4.01 mill/uL (4.20-5.60); RED CELL DISTRI WIDTH 16.3 % (11.5-15.5)
[2021-02-14 05:59] LABS: ANION GAP 8 (6-22 (CALC)); BUN 34 mg/dL (8-23); BUN/CREATININE RATIO 33 (12-20 (CALC)); CARBON DIOXIDE 28 mmol/l (22-30); CHLORIDE 107 mmol/l (95-108); GFR 55 ML/MIN (>=60 (CALC)); GFR FOR AFR.AMER. > 60 ML/MIN (>=60 (CALC)); MAGNESIUM 2.3 mg/dL (1.6-2.3); POTASSIUM 4.8 mmol/l (3.5-5.1); SODIUM 139 mmol/l (137-146)
--- NOTE | 2021-02-14 09:20 | NUR ---
PT IN ROOM WITH DR. GALEANA AND MIRANDA RAMIREZ DISCUSSING POC. CALL LIGHT IS WITHIN REACH. PATIENT DENIES ANY PAIN.
[2021-02-14 10:30] VITALS: BP 149/65
--- NOTE | 2021-02-14 10:45 | NUR ---
PT and PT student present in room preparing patient for transfer into recliner. Millie is AOx4, had recently been bathed, and was more awake today. She demonstrated increased strength with bed mobility, requiring mod A to roll and sit up on side of the bed. Millie transferred with CGA using a FWW and required breaks between weight shifts while turning to sit back in chair. Patient reached back for chair's armrest without cuing and safely sat into chair. Millie completed functional reaching I and self care tasks with s/u assist and presented with decreased fatigue after light activities. Am-Pac score 11- D/c to ECF for increased endurance yet to complete self care tasks and ADLs in standing and promote improved safety awareness.
[2021-02-14] MEDS ORDERED: LISINOPRIL20 M1 PO (11:26)
[2021-02-14] MEDS ORDERED: SENNA REGULAR8.6 MG PO (11:27)
--- NOTE | 2021-02-14 11:55 | NUR ---
S: Patient was very willing to participate in PT on this date and reported feeling much better than yesterday. O: Patient performed Bed mobility/ supine to sit Min A STS Min A Ambulation x 5 feet Min A A: Patient had increased energy levels on this date from yesterday. Patient was able to perform bed mobility and supine to sit with Min A and minimal pain. Patient required Min A for STS and ambulation of 5 feet to chair. Patient required small steps and had to continuously look down while ambulating but was able to weight bear bilaterally through UE and LE with assistance. Patient reported having some fatigue during this short distance of ambulation. Patient was left sitting upright in a chair to work with OT immediately following. P: Patient will continue to require strengethening exercises, balance training, gait training, and ROM activities to increase ability to perform ADLs and increase LOF. Patient's AMPAC score on this date was an 11 and it is recommended that she be discharged to care home facility for continued care.
[2021-02-14 14:25] VITALS: BP 143/63
--- NOTE | 2021-02-14 16:28 | NUR ---
PT HAS BEEN UNSUCCESFUL WITH BM. SUPPOSITORY AND SOAP SUDS ENEMA, CITRA MAGNESIA AND A RESULT ONLY DEFECATED A TINY PEBBLE OF STOOL. PT ENCOURAGED TO USE CALL LIGHT. CALL LIGHT IS WITHIN REACH.
[2021-02-14 19:00] VITALS: BP 137/44
[2021-02-14 19:15] VITALS: BP 109/69
--- NOTE | 2021-02-14 19:35 | NUR ---
Patient is awake in bed, supine, alert and oriented. Just had large formed BM, cleaned up. Denies pain. Respirations even and unlabored. No complaints. Assessment completed and charted. Bed in low position. Call light within reach.
[2021-02-15] VITALS: BP 99/36
--- NOTE | 2021-02-15 | NUR ---
Patient in bed, supine, respirations even and unlabored. No acute distress observed. No complaints. Bed in low position. Call light within reach.
[2021-02-15 04:00] VITALS: BP 157/70; BP 193/68
--- NOTE | 2021-02-15 04:43 | NUR ---
No changes noted. Bed in low position. Call light within reach.
[2021-02-15 05:24] VITALS: BP 158/71
--- NOTE | 2021-02-15 09:30 | NUR ---
DR NOGUERA AND Tesfaye HARRIS APRN AT BEDSIDE DISCUSSING POC
--- NOTE | 2021-02-15 09:45 | NUR ---
PHYSICAL THERAPY AT BEDSIDE
[2021-02-15 11:15] VITALS: BP 124/58
--- NOTE | 2021-02-15 13:27 | NUR ---
S: Patient was willing to participate in therapy and noted that she felt slightly better on this date than the previous date. O: Patient performed 1 x 15 each supine hip abduction/adduction 1 x 15 each supine SLR with assistance 1 x 15 each ankle pumps Ambulation x 10 feet with FWW and Min A x 1 Bed mobility and transfers Min A x 1 A: Patient was alert and actively participated with PT with decreased pain and fatigue. Patient was able to independently do B LE exercises in bed without any pain, with SLR patient required assistance as she did not have the strength bilaterally to lift her LEs. Patient was able to transfer and walk with Min A x 1 with out having any dizziness while changing position. Patient ambulated with decreased stride length and required downward looking head position. Patient demonstrated much better control on the descent into sitting in chair. P: Patient will continue to need strengthening exercises, balance training, and endurance training to improve LOF with ADLs and ambulation. Patient's AM PAC score on this date was a 13, which SNF/IRF would be recommended for continued care and interventions.
== END 2021-02-15 14:25 | DRG 917 ==
LOC: ED 07:14 → ED-I 10:40 → ED 11:18 → ICU 11:19 → MS2 02-13 15:20
PROVIDERS: Family Medicine; Internal Medicine; Nurse Practitioner; ADMIT Hospitalist; ATTEND Hospitalist
PROC: 02HV33Z Insertion of Infusion Device into Superior Vena Cava, Percutaneous Approach (ICD-10-PCS; principal; 2021-02-08)
PROC: 0T9B70Z Drainage of Bladder with Drainage Device, Via Natural or Artificial Opening (ICD-10-PCS; 2021-02-12)
DX: T42.4X1A Poisoning by benzodiazepines, accidental (unintentional), initial encounter (principal); G92.8 Other toxic encephalopathy; N17.9 Acute kidney failure, unspecified; E86.9 Volume depletion, unspecified; I95.9 Hypotension, unspecified; I10 Essential (primary) hypertension; E11.9 Type 2 diabetes mellitus without complications; I25.10 Atherosclerotic heart disease of native coronary artery without angina pectoris; D64.9 Anemia, unspecified; E78.5 Hyperlipidemia, unspecified; E03.9 Hypothyroidism, unspecified; F41.9 Anxiety disorder, unspecified; S09.90XA Unspecified injury of head, initial encounter; F32.A Depression, unspecified; I65.22 Occlusion and stenosis of left carotid artery; K59.00 Constipation, unspecified; M48.00 Spinal stenosis, site unspecified; M79.7 Fibromyalgia; W19.XXXA Unspecified fall, initial encounter; Y92.009 Unspecified place in unspecified non-institutional (private) residence as the place of occurrence of the external cause; Z86.718 Personal history of other venous thrombosis and embolism; Z95.828 Presence of other vascular implants and grafts; Z79.4 Long term (current) use of insulin; Z79.01 Long term (current) use of anticoagulants; Z95.5 Presence of coronary angioplasty implant and graft; Z79.891 Long term (current) use of opiate analgesic; Z20.822 Contact with and (suspected) exposure to COVID-19
CPT/HCPCS: G0378; J1650; Q9967

== ENCOUNTER 2021-05-07 18:29 | Emergency (ER) | payer MEDICARE ==
[~2021-05-07] VITALS: Ht 162.6 cm; Wt 100.0 kg
[~2021-05-07 18:29] MED LIST changes: +LISINOPRIL20 M1 PO; +OXYCONTIN15 MG PO; +SENNA REGULAR8.6 MG PO; +XANAX XR0.5 MG PO
[2021-05-08 09:08] VITALS: BP 173/75
== END 2021-05-08 09:08 | disposition home or self-care (01) ==
LOC: ED 18:29
DX: G89.29 Other chronic pain (principal); M48.00 Spinal stenosis, site unspecified; I10 Essential (primary) hypertension; E11.9 Type 2 diabetes mellitus without complications; F32.A Depression, unspecified; F41.9 Anxiety disorder, unspecified; E03.9 Hypothyroidism, unspecified; Z86.718 Personal history of other venous thrombosis and embolism; Z79.4 Long term (current) use of insulin; Z95.5 Presence of coronary angioplasty implant and graft; Z79.891 Long term (current) use of opiate analgesic

== ENCOUNTER 2021-05-31 14:50 | Emergency (ER) | payer MEDICARE ==
[~2021-05-31] VITALS: Ht 162.6 cm; Wt 95.0 kg
[2021-05-31 15:50] LABS: HEMATOCRIT 45.2 % (37.0-47.0); IMMATURE GRANULOCYTES 0.4 % (0.0-5.0); MEAN CELL VOLUME 87.6 fL CALC (80.0-100.0); MEAN CORPUSCULAR HGB 25.2 pG CALC (26.0-32.0); MEAN CORPUSCULAR HGB CONC 28.8 g/dL CAL (32.0-36.0); NEUT# 7.08 thou/uL (2.00-7.15); RED BLOOD COUNT 5.16 mill/uL (4.20-5.60); RED CELL DISTRI WIDTH 16.6 % (11.5-15.5)
[2021-05-31 16:02] LABS: ALBUMIN 4.2 g/dL (3.2-5.0); ALKALINE PHOSPHATASE 114 u/l (38-126); ANION GAP 14 (6-22 (CALC)); BILIRUBIN, TOTAL 0.6 mg/dL (0.0-1.4); BUN 22 mg/dL (8-23); BUN/CREATININE RATIO 25 (12-20 (CALC)); CARBON DIOXIDE 25 mmol/l (22-30); CHLORIDE 105 mmol/l (95-108); CREATININE 0.9 mg/dL (0.5-1.0); GFR > 60 ML/MIN (>=60 (CALC)); GFR FOR AFR.AMER. > 60 ML/MIN (>=60 (CALC)); LIPASE 39 u/l (23-300); POTASSIUM 3.7 mmol/l (3.5-5.1); SGOT/AST 16 u/l (9-36); SODIUM 140 mmol/l (137-146); TOTAL PROTEIN 8.1 g/dL (6.3-8.2)
[2021-05-31] MEDS ORDERED: PREVACID30 M3 PO (21:42)
[2021-05-31] MEDS ORDERED: ONDANSETRON4 MG PO (21:42)
[2021-06-01 06:39] VITALS: BP 149/85
== END 2021-06-01 08:09 | disposition home or self-care (01) ==
LOC: ED 14:50
PROVIDERS: Family Medicine
DX: K80.20 Calculus of gallbladder without cholecystitis without obstruction (principal); I10 Essential (primary) hypertension; E11.9 Type 2 diabetes mellitus without complications; E03.9 Hypothyroidism, unspecified; M79.7 Fibromyalgia; F41.9 Anxiety disorder, unspecified; F32.A Depression, unspecified; Z86.718 Personal history of other venous thrombosis and embolism; Z79.4 Long term (current) use of insulin; Z95.828 Presence of other vascular implants and grafts; Z95.5 Presence of coronary angioplasty implant and graft
CPT/HCPCS: Q9967

== ENCOUNTER 2021-06-07 07:51 | Emergency (ER) | payer MEDICARE ==
[~2021-06-07] VITALS: Ht 162.6 cm; Wt 95.5 kg
[~2021-06-07 07:51] MED LIST changes: +ONDANSETRON4 MG PO
[2021-06-07 08:54] LABS: HEMATOCRIT 44.4 % (37.0-47.0); HEMOGLOBIN 12.8 g/dl (12.0-16.0); IMMATURE GRANULOCYTES 0.4 % (0.0-5.0); MEAN CORPUSCULAR HGB 25.7 pG CALC (26.0-32.0); MEAN CORPUSCULAR HGB CONC 28.8 g/dL CAL (32.0-36.0); NEUT# 5.84 thou/uL (2.00-7.15); RED BLOOD COUNT 4.99 mill/uL (4.20-5.60)
[2021-06-07 09:16] LABS: ALBUMIN 3.6 g/dL (3.2-5.0); ALKALINE PHOSPHATASE 102 u/l (38-126); ANION GAP 11 (6-22 (CALC)); BILIRUBIN, TOTAL 0.8 mg/dL (0.0-1.4); BUN 22 mg/dL (8-23); BUN/CREATININE RATIO 23 (12-20 (CALC)); CARBON DIOXIDE 26 mmol/l (22-30); CHLORIDE 105 mmol/l (95-108); GFR 55 ML/MIN (>=60 (CALC)); GFR FOR AFR.AMER. > 60 ML/MIN (>=60 (CALC)); LIPASE 22 u/l (23-300); SGOT/AST 20 u/l (9-36); SODIUM 138 mmol/l (137-146)
[2021-06-07] MEDS ORDERED: AMOXICILLIN875 MG PO (11:25)
[2021-06-07 11:38] VITALS: BP 207/93
[2021-06-07 13:15] LABS: TSH, 3RD GENERATION 1.37 uIU/mL (0.47 - 4.68)
== END 2021-06-07 12:05 | disposition home or self-care (01) ==
LOC: ED 07:51
DX: J02.9 Acute pharyngitis, unspecified (principal); I10 Essential (primary) hypertension; E11.9 Type 2 diabetes mellitus without complications; E03.9 Hypothyroidism, unspecified; M54.9 Dorsalgia, unspecified; G89.29 Other chronic pain; K80.20 Calculus of gallbladder without cholecystitis without obstruction; F41.9 Anxiety disorder, unspecified; F32.A Depression, unspecified; Z86.718 Personal history of other venous thrombosis and embolism; Z95.5 Presence of coronary angioplasty implant and graft; Z79.4 Long term (current) use of insulin; Z20.822 Contact with and (suspected) exposure to COVID-19

== ENCOUNTER 2021-07-10 06:52 | Day surgery (SDC) | payer MEDICARE ==
[~2021-07-10] VITALS: Ht 162.6 cm; Wt 90.7 kg
[~2021-07-10 06:52] MED LIST changes: +AMOXICILLIN875 MG PO; +BUPRENORPHINE TOP
[2021-07-10 08:53] VITALS: BP 117/63
== END 2021-07-10 10:49 | disposition home or self-care (01) ==
LOC: ORM 06:52
PROVIDERS: ATTEND Physical Medicine & Rehabilitation Pain Medicine
DX: M70.72 Other bursitis of hip, left hip (principal); M70.71 Other bursitis of hip, right hip; G89.4 Chronic pain syndrome
CPT/HCPCS: Q9967

== ENCOUNTER 2022-03-12 08:06 | Day surgery (SDC) | payer MEDICARE ==
[~2022-03-12] VITALS: Ht 162.6 cm; Wt 99.8 kg
[2022-03-12] MEDS ORDERED: BELBUCA900 MCG BU (08:35)
[2022-03-12 10:26] VITALS: BP 138/79
== END 2022-03-12 10:30 | disposition home or self-care (01) ==
LOC: ORM 08:06
PROVIDERS: ATTEND Physical Medicine & Rehabilitation Pain Medicine
DX: M48.061 Spinal stenosis, lumbar region without neurogenic claudication (principal)
CPT/HCPCS: J3490; Q9967

== ENCOUNTER 2022-06-04 09:53 | Observation (INO) | payer MEDICARE ==
[~2022-06-04] VITALS: Ht 162.6 cm; Wt 99.8 kg
[~2022-06-04 09:53] MED LIST changes: +BELBUCA900 MCG BU
[2022-06-04 11:29] LABS: ALBUMIN 3.7 g/dL (3.2-5.0); ALKALINE PHOSPHATASE 84 u/l (38-126); ANION GAP 11 (6-22 (CALC)); BILIRUBIN, TOTAL 0.6 mg/dL (0.02-1.3); BUN 18 mg/dL (8-23); BUN/CREATININE RATIO 18 (12-20 (CALC)); CARBON DIOXIDE 29 mmol/l (22-30); CHLORIDE 102 mmol/l (95-108); GFR FOR AFR.AMER. > 60 ML/MIN (>=60 (CALC)); GFR OTHER RACES 54 ML/MIN (>=60 (CALC)); POTASSIUM 3.7 mmol/l (3.5-5.1); SGOT/AST 28 u/l (9-36); SODIUM 138 mmol/l (137-146); TOTAL PROTEIN 6.6 g/dL (6.3-8.2)
[2022-06-04 11:45] LABS: BASO% 0.3 % (0-3); EOS% 0.8 % (0-8); IMMATURE GRANULOCYTES 0.1 % (0.0-5.0); LYMPH% 12.5 % (15-41); MEAN CELL VOLUME 86.5 fL CALC (80.0-100.0); MEAN CORPUSCULAR HGB 24.7 pG CALC (26.0-32.0); MEAN CORPUSCULAR HGB CONC 28.6 g/dL CAL (32.0-36.0); MONO% 8.5 % (2-13); NEUT# 8.65 thou/uL (2.00-7.15); NEUT% 77.8 % (42-76); RED BLOOD COUNT 5.86 mill/uL (4.20-5.60); RED CELL DISTRI WIDTH 18.3 % (11.5-15.5)
[2022-06-04 11:46] LABS: HEMATOCRIT 50.7 % (37.0-47.0); HEMOGLOBIN 14.5 g/dl (12.0-16.0)
[2022-06-04] MEDS ORDERED: FUROSEMIDE20 MG PO (16:01)
[2022-06-04] MEDS ORDERED: LEVOTHYROXIN50 MC1 PO (16:01)
[2022-06-04] MEDS ORDERED: ROSUVASTATIN CA40 MG (16:02)
[2022-06-04] MEDS ORDERED: XANAX0.5 MG PO (17:03)
[2022-06-04 17:20] VITALS: BP 155/53
[2022-06-04 19:23] VITALS: BP 126/58
[2022-06-04] MEDS ORDERED: ZOLOFT25 MG PO (20:39)
[2022-06-04] MEDS ORDERED: ZOLPIDEM TARTRA10 MG PO (20:39)
[2022-06-05 00:02] VITALS: BP 117/54
[2022-06-05 03:56] VITALS: BP 114/56
[2022-06-05 06:30] LABS: CHOLESTEROL HDL RATIO 2.6 (<4.4 (CALC))
[2022-06-05 06:36] VITALS: BP 118/61
[2022-06-05] MEDS ORDERED: PROTONIX40 MG PO (09:17)
[2022-06-05 10:35] VITALS: BP 115/62
== END 2022-06-05 13:29 ==
LOC: ED 09:53 → ED-I 14:30 → ED 15:17 → MS2 15:18
PROVIDERS: Family Medicine; ADMIT Internal Medicine; ATTEND Internal Medicine
DX: R07.9 Chest pain, unspecified (principal); I25.10 Atherosclerotic heart disease of native coronary artery without angina pectoris; I10 Essential (primary) hypertension; E11.9 Type 2 diabetes mellitus without complications; E03.9 Hypothyroidism, unspecified; F41.1 Generalized anxiety disorder; F32.A Depression, unspecified; M79.7 Fibromyalgia; M48.00 Spinal stenosis, site unspecified; Z86.718 Personal history of other venous thrombosis and embolism; Z95.5 Presence of coronary angioplasty implant and graft; Z79.4 Long term (current) use of insulin; Z79.01 Long term (current) use of anticoagulants; Z95.820 Peripheral vascular angioplasty status with implants and grafts
CPT/HCPCS: G0378

== ENCOUNTER 2022-10-30 16:01 | Emergency (ER) | payer MEDICARE ==
[~2022-10-30] VITALS: Ht 167.6 cm; Wt 95.0 kg
[~2022-10-30 16:01] MED LIST changes: +FUROSEMIDE20 MG PO; +KLOR-CON M2020 MEQ PO; +PROTONIX40 MG PO; +ROSUVASTATIN CA40 MG; +ZOLOFT25 MG PO
[2022-10-30 16:21] VITALS: BP 150/70
== END 2022-10-30 16:37 | disposition home or self-care (01) ==
LOC: ED 16:01
PROC: 0HQKXZZ Repair Right Lower Leg Skin, External Approach (ICD-10-PCS; principal; 2022-10-30)
DX: S81.811A Laceration without foreign body, right lower leg, initial encounter (principal); E11.9 Type 2 diabetes mellitus without complications; I10 Essential (primary) hypertension; E03.9 Hypothyroidism, unspecified; F41.9 Anxiety disorder, unspecified; F32.A Depression, unspecified; W20.8XXA Other cause of strike by thrown, projected or falling object, initial encounter; Z95.5 Presence of coronary angioplasty implant and graft; Z86.718 Personal history of other venous thrombosis and embolism; Z79.01 Long term (current) use of anticoagulants; Z79.4 Long term (current) use of insulin

== ENCOUNTER 2022-11-05 06:59 | Day surgery (SDC) | payer MEDICARE ==
[~2022-11-05] VITALS: Ht 162.6 cm; Wt 95.3 kg
[2022-11-05] MEDS ORDERED: COREG12.5 MG PO (07:34)
[2022-11-05 09:51] VITALS: BP 133/73
== END 2022-11-05 09:40 | disposition home or self-care (01) ==
LOC: ORM 06:59
PROVIDERS: ATTEND Physical Medicine & Rehabilitation Pain Medicine
DX: G89.4 Chronic pain syndrome (principal); M70.71 Other bursitis of hip, right hip; Z79.890 Hormone replacement therapy; M48.061 Spinal stenosis, lumbar region without neurogenic claudication; M96.1 Postlaminectomy syndrome, not elsewhere classified; M70.72 Other bursitis of hip, left hip
CPT/HCPCS: Q9967

== ENCOUNTER 2023-01-07 12:01 | Emergency (ER) | payer MEDICARE ==
[~2023-01-07] VITALS: Ht 162.6 cm; Wt 100.0 kg
[~2023-01-07 12:01] MED LIST changes: +COREG12.5 MG PO
[2023-01-07 12:09] VITALS: BP 117/57
[2023-01-07 12:30] VITALS: BP 122/56
[2023-01-07 12:48] LABS: BASO% 0.3 % (0-3); EOS% 3.1 % (0-8); IMMATURE GRANULOCYTES 0.2 % (0.0-5.0); LYMPH% 28.1 % (15-41); MEAN CELL VOLUME 88.8 fL CALC (80.0-100.0); MEAN CORPUSCULAR HGB 25.9 pG CALC (26.0-32.0); MEAN CORPUSCULAR HGB CONC 29.1 g/dL CAL (32.0-36.0); MONO% 11.1 % (2-13); NEUT# 3.36 thou/uL (2.00-7.15); NEUT% 57.2 % (42-76); RED BLOOD COUNT 5.02 mill/uL (4.20-5.60); RED CELL DISTRI WIDTH 17.1 % (11.5-15.5)
[2023-01-07 12:53] LABS: HEMATOCRIT 44.6 % (37.0-47.0)
[2023-01-07 13:05] LABS: ALBUMIN 3.5 g/dL (3.2-5.0); BILIRUBIN, TOTAL 0.5 mg/dL (0.02-1.3); CREATININE 1.3 mg/dL (0.5-1.0); TOTAL PROTEIN 6.9 g/dL (6.3-8.2)
[2023-01-07 13:17] VITALS: BP 117/49
[2023-01-07 13:31] VITALS: BP 129/57
[2023-01-07 14:02] VITALS: BP 149/52
[2023-01-07] MEDS ORDERED: MEDDOSEPAK PO (14:13)
[2023-01-07 14:16] VITALS: BP 149/52
== END 2023-01-07 14:37 | disposition home or self-care (01) ==
LOC: ED 12:01
PROVIDERS: Nurse Practitioner
DX: U07.1 COVID-19 (principal); R07.0 Pain in throat; M54.2 Cervicalgia; R49.0 Dysphonia; I10 Essential (primary) hypertension; E11.9 Type 2 diabetes mellitus without complications; F41.9 Anxiety disorder, unspecified; F32.A Depression, unspecified; E03.9 Hypothyroidism, unspecified; Z86.718 Personal history of other venous thrombosis and embolism; Z95.5 Presence of coronary angioplasty implant and graft; Z79.4 Long term (current) use of insulin
CPT/HCPCS: Q9967

== ENCOUNTER 2023-11-10 15:04 | Observation (INO) | payer MEDICARE ==
[2023-11-10] VITALS (23 sets, daily range): BP systolic 107–158; BP diastolic 45–74
[~2023-11-10] VITALS: Ht 162.6 cm; Wt 84.2 kg
[~2023-11-10 15:04] MED LIST changes: +CIPROFLOXACN500 MG PO; -COREG12.5 MG PO; +COREG6.25 MG PO; +CYMBALTA30 MG PO; +JARDIANCE10 MG PO; +OZEMPIC2 MG SC; -ROSUVASTATIN CA40 MG; +ROSUVASTATIN CA40 MG PO
[2023-11-10 15:53] LABS: BASO% 0.5 % (0-3); EOS% 2.6 % (0-8); HEMATOCRIT 44.7 % (37.0-47.0); HEMOGLOBIN 12.9 g/dl (12.0-16.0); IMMATURE GRANULOCYTES 0.7 % (0.0-5.0); LYMPH% 20.2 % (15-41); MEAN CELL VOLUME 91.2 fL CALC (80.0-100.0); MEAN CORPUSCULAR HGB 26.3 pG CALC (26.0-32.0); MEAN CORPUSCULAR HGB CONC 28.9 g/dL CAL (32.0-36.0); NEUT# 6.11 thou/uL (2.00-7.15); RED BLOOD COUNT 4.9 mill/uL (4.20-5.60); RED CELL DISTRI WIDTH 16.7 % (11.5-15.5)
[2023-11-10 16:03] LABS: ALBUMIN 3.7 g/dL (3.2-5.0); BILIRUBIN, TOTAL 0.8 mg/dL (0.02-1.3); CREATININE 1.2 mg/dL (0.5-1.0)
[2023-11-10 16:05] LABS: INTERNATIONAL NORMALIZED RATIO 1.1 RATIO (0.7-1.3)
[2023-11-10 16:12] LABS: PROTHROMBIN TIME 10.5 SECONDS (9.0-12.5)
[2023-11-10 16:13] LABS: POTASSIUM 4.4 mmol/l (3.5-5.1)
[2023-11-10 16:33] LABS: TSH, 3RD GENERATION 1.54 uIU/mL (0.47 - 4.68)
[2023-11-10 16:55] LABS: URINE BLOOD DIPSTICK Negative (NEGATIVE); URINE GLUCOSE - DIPSTICK Negative (NEGATIVE); URINE KETONE Negative (NEGATIVE); URINE LEUK ESTERASE Negative (NEGATIVE); URINE NITRITE - DIPSTICK Negative (Negative); URINE PH 5.5 (4.5-8.0); URINE PROTEIN - DIPSTICK 30 mg/dL (NEG-TRACE); URINE SPECIFIC GRAVITY >=1.030; URINE UROBILINOGEN - DIPSTICK 0.2 E.U./dL (0.2)
[2023-11-10 16:57] LABS: URINE COLOR Yellow; URINE RBC 0-2 RBC/hpf (0-5); URINE SQUAMOUS EPITHELIAL CELL FEW EPI/hpf (0-FEW); URINE WBC 0-2 WBC/hpf (0-5)
[2023-11-10] MEDS ORDERED: SODIUM CHLORIDE 0.9% 1,000 ML IV ONE (17:30)
[2023-11-10] MEDS ORDERED: SODIUM CHLORIDE 0.9% 1,000 ML IV PRN (19:50)
[2023-11-10] MEDS ORDERED: MAGNESIUM HYDROXIDE 30 ML UDC PO PRN (19:50)
[2023-11-10] MEDS ORDERED: DEXTROSE 250 ML IV PRN ×2 (19:50→19:55)
[2023-11-10] MEDS ORDERED: GABAPENTIN 100 MG/CAP PO PRN (19:50)
[2023-11-10] MEDS ORDERED: ACETAMINOPHEN 325 MG/TAB PO PRN (19:50)
[2023-11-10] MEDS ORDERED: ALPRAZolam 0.5 MG/TAB PO PRN (19:50)
[2023-11-10] MEDS ORDERED: INSULIN LISPRO 100 UNITS/ML ML SC SCH (21:00)
[2023-11-10] MEDS ORDERED: CARVEDILOL 6.25 MG/TAB PO SCH (21:00)
[2023-11-11] VITALS (8 sets, daily range): BP systolic 137–166; BP diastolic 57–74
[2023-11-11] MEDS ORDERED: LEVOTHYROXINE SODIUM 50 MCG/TAB PO SCH (06:00)
[2023-11-11] MEDS ORDERED: RIVAROXABAN 10 MG TAB PO SCH (09:00)
[2023-11-11] MEDS ORDERED: INSULIN DETEMIR 100 UNITS/ML SC SCH (09:00)
[2023-11-11] MEDS ORDERED: DULOXETINE HCl 30 MG/CAP PO SCH (09:00)
[2023-11-11] MEDS ORDERED: LOSARTAN Potassium 50 MG/TAB PO SCH (11:00)
[2023-11-11] MEDS ORDERED: TIZANIDINE2 MG PO (14:29)
[2023-11-11] MEDS ORDERED: LASIX 40 MG TAB40 MG PO (14:32)
[2023-11-11] MEDS ORDERED: RIVAROXABAN 20 MG TAB PO SCH (17:30)
[2023-11-12] VITALS: BP 152/66
[2023-11-12 03:48] VITALS: BP 160/73
[2023-11-12 04:00] VITALS: BP 160/73
[2023-11-12 05:30] LABS: BASO% 0.4 % (0-3); EOS% 4.5 % (0-8); HEMATOCRIT 42.7 % (37.0-47.0); HEMOGLOBIN 12.3 g/dl (12.0-16.0); IMMATURE GRANULOCYTES 0.2 % (0.0-5.0); LYMPH% 40.1 % (15-41); MEAN CELL VOLUME 92.6 fL CALC (80.0-100.0); MEAN CORPUSCULAR HGB 26.7 pG CALC (26.0-32.0); MEAN CORPUSCULAR HGB CONC 28.8 g/dL CAL (32.0-36.0); MONO% 9.3 % (2-13); NEUT# 2.45 thou/uL (2.00-7.15); NEUT% 45.5 % (42-76); RED BLOOD COUNT 4.61 mill/uL (4.20-5.60); RED CELL DISTRI WIDTH 16.7 % (11.5-15.5)
[2023-11-12 05:46] LABS: BILIRUBIN, TOTAL 0.6 mg/dL (0.02-1.3); CREATININE 0.8 mg/dL (0.5-1.0); MAGNESIUM 1.9 mg/dL (1.6-2.3); POTASSIUM 4.3 mmol/l (3.5-5.1); TOTAL PROTEIN 5.9 g/dL (6.3-8.2)
[2023-11-12 07:00] VITALS: BP 158/61
[2023-11-12] MEDS ORDERED: LOSARTAN POTASS50 MG PO (09:53)
[2023-11-12] MEDS ORDERED: XANAX0.5 MG PO (10:01)
[2023-11-12] MEDS ORDERED: BELBUCA900 MCG BU (10:01)
[2023-11-12] MEDS ORDERED: ZOLPIDEM10 MG PO (10:01)
[2023-11-12] MEDS ORDERED: HUMALOG100 UNIT SC (10:05)
[2023-11-12 10:43] VITALS: BP 155/72
== END 2023-11-12 13:57 ==
LOC: ED 15:04 → ED-I 16:19 → ED 17:52 → MS2 17:53
PROVIDERS: Family Medicine; Nurse Practitioner Family; ADMIT Internal Medicine; ATTEND Internal Medicine
DX: R53.1 Weakness (principal); R41.82 Altered mental status, unspecified; I13.0 Hypertensive heart and chronic kidney disease with heart failure and stage 1 through stage 4 chronic kidney disease, or unspecified chronic kidney disease; I50.9 Heart failure, unspecified; E11.22 Type 2 diabetes mellitus with diabetic chronic kidney disease; N18.31 Chronic kidney disease, stage 3a; I25.10 Atherosclerotic heart disease of native coronary artery without angina pectoris; E78.5 Hyperlipidemia, unspecified; F41.9 Anxiety disorder, unspecified; F32.A Depression, unspecified; M79.7 Fibromyalgia; M48.00 Spinal stenosis, site unspecified; E03.9 Hypothyroidism, unspecified; Z86.718 Personal history of other venous thrombosis and embolism; Z79.4 Long term (current) use of insulin; Z95.5 Presence of coronary angioplasty implant and graft; Z91.81 History of falling; Z79.84 Long term (current) use of oral hypoglycemic drugs; Z79.01 Long term (current) use of anticoagulants; Z20.822 Contact with and (suspected) exposure to COVID-19